=== PATIENT | female | born 1940 | race Caucasian/White ===

== ENCOUNTER 2019-03-08 09:12 | Inpatient (IN) | payer MEDICARE ==
--- NOTE | 2019-03-08 07:56 | P.GSHP ---
History of Present Illness H&P Date: 03/08/19 CHIEF COMPLAINT: Colon screen HISTORY OF PRESENT ILLNESS: The patient is a 78-year-old female who presents for colon screen. Lower endoscopy was offered for further evaluation and management. PAST MEDICAL HISTORY: Please see list. PAST SURGICAL HISTORY: Please see list. MEDICATIONS: Please see list. ALLERGIES: Please see list. SOCIAL HISTORY: No illicit drug use FAMILY HISTORY: No reports of Crohn disease or ulcerative colitis. REVIEW OF ORGAN SYSTEMS: CONSTITUTIONAL: No reports of fevers or chills. PHYSICAL EXAM: VITAL SIGNS: Stable GENERAL: Well-developed pleasant in no acute distress. HEENT: No scleral icterus. Extraocular movements grossly intact. Moist buccal mucosa. NECK: Supple without lymphadenopathy. CHEST: Unlabored respirations. Equal bilateral excursions. CARDIOVASCULAR: Regular rate and rhythm. Distal 2+ pulses. ABDOMEN: Soft, nontender, nondistended. MUSCULOSKELETAL: No clubbing, cyanosis, or edema. ASSESSMENT: 1. Colon screen. PLAN: 1. Recommend proceeding with a lower endoscopy Past Medical History Past Medical History: GERD/Reflux Additional Past Medical History / Comment(s): LOW BLOOD SUGAR History of Any Multi-Drug Resistant Organisms: None Reported Past Surgical History: Bowel Resection, Hysterectomy, Joint Replacement, Tubal Ligation Additional Past Surgical History / Comment(s): COLOSTOMY, REVERSAL OF COLOSTOMY, ventral hernia repair, open left inguinal hernia and incisional hernia repair 06/01/14, RT TKA, COLONOSCOPY Past Anesthesia/Blood Transfusion Reactions: Postoperative Nausea & Vomiting (PONV) Smoking Status: Never smoker - Past Family History Sister(s) Family Medical History: Cancer Medications and Allergies Home Medications Medication Instructions Recorded Confirmed Type Gabapentin [Neurontin] 300 mg PO BID 05/31/14 03/03/19 History Naproxen 500 mg PO BID 03/03/19 03/03/19 History Allergies Allergy/AdvReac Type Severity Reaction Status Date / Time Penicillins Allergy Severe Dyspnea, Verified 03/03/19 10:59 SWELLING OF TONGUE
[~2019-03-08 09:12] MED LIST: LIDOCAINE 1% 20 ML VIAL (10MG/ML) FOR IV START INTRADERMA PRN
[2019-03-08] MEDS ORDERED: LACTATED RINGERS 1,000 ML IV ONE (09:50)
[2019-03-08] MEDS ORDERED: PROPOFOL 10 MG/ML 20 ML VIAL IV ONE (09:54)
[2019-03-08] MEDS ORDERED: LIDOCAINE 1% INJ 10MG/ML (20 ML MDV) ONE (09:54)
--- NOTE | 2019-03-08 10:15 | P.PCN ---
Date of Procedure: 03/08/19 Description of Procedure: PREOPERATIVE DIAGNOSIS: History of malignant colon polyp, cecum Previous history of perforated diverticulitis with colostomy reversal POSTOPERATIVE DIAGNOSIS: History of malignant colon polyp, cecum Previous history of perforated diverticulitis with colostomy reversal Severe diverticulitis with near complete bowel obstruction, sigmoid colon Near complete large bowel obstruction OPERATION: Colonoscopy to sigmoid colon, flexible sigmoidoscopy SURGEON: Nini Alexandre MD. ANESTHESIA: MAC. INDICATIONS: The patient is a 78-year-old female who presents with with history of malignant colon polyp. Last colonoscopy over 5 years ago. She presents for surveillance. Benefits and risks were described and informed consent was obtained. DESCRIPTION OF PROCEDURE: The patient had undergone Gatorade, MiraLAX and Dulcolax prep. She had been brought into the operating room and laid in the left lateral decubitus position. After adequate intravenous sedation, the rectum was examined with 2% lidocaine jelly. No external hemorrhoids were encountered. The rectal tone was within normal limits. No lesions were palpated in the rectal vault. An Olympus colonoscope was advanced along the rectum to 30 cm from the anal verge where a less than 1 cm orifice of the sigmoid colon was identified with inflammation. Diverticulosis was identified. Findings are consistent with near complete large bowel obstruction. The procedure was terminated secondary to the severe obstruction. The patient had tolerated the procedure well. FINDINGS: Aronchick grade 1 (1 to 5) Near complete large bowel obstruction at 30 cm from the anal verge, sigmoid colon No arteriovenous malformations. No adenomatous polyps. No focal colitis. RECOMMENDATIONS: Patient admitted secondary to near complete large bowel obstruction.
[2019-03-08 12:34] LABS: African American GFR (CKD) >90 (>60 ml/min/1.73 sqM); Blood Urea Nitrogen 21 mg/dL (7-17)
[2019-03-08] MEDS: IOPAMIDOL-300 CONTRAST 30 ML VIAL (ORAL USE) PO PRN ×2 (13:05→13:10)
[2019-03-08] MEDS ORDERED: ACETAMINOPHEN TAB 500 MG TAB PO ONE (14:00)
[2019-03-08] MEDS ORDERED: IOPAMIDOL-300 CONTRAST 30 ML VIAL (ORAL USE) PO ONE (14:00)
[2019-03-08] MEDS ORDERED: ALVIMOPAN 12 MG CAPSULE PO ONE (14:00)
[2019-03-08] MEDS ORDERED: metroNIDAZOLE-NS PMX 500 MG in SALINE 1 100ML.BAG IVPB ONE (14:00)
[2019-03-08] MEDS ORDERED: Antibiotics per Pharmacy 1 EACH MISC MISCELLANE PRN (14:00)
[2019-03-08] MEDS ORDERED: GENTAMICIN 300 MG in SODIUM CHLORIDE 0.9% 100 ML IVPB ONE (14:00)
[2019-03-08] MEDS ORDERED: CLINDAMYCIN 900 MG in DEXTROSE 5% IN WATER 50 ML IVPB ONE ×2 (14:00)
[2019-03-08] MEDS ORDERED: POLYETHYLENE GLYCOL LYTES SOLN 4,000 ML SOLN.RECON PO ONE (14:00)
[2019-03-08 15:36] LABS: Glucose,Whole Blood 79 mg/dL (75-99)
--- NOTE | 2019-03-08 16:58 | CT ---
EXAMINATION TYPE: CT abdomen pelvis w con DATE OF EXAM: 03/08/2019 COMPARISON: None HISTORY:obstruction, failed colonoscopy, history of ruptured bowel CT DLP: 1113.2 mGycm Automated exposure control for dose reduction was used. TECHNIQUE: Helical acquisition of images from the lung bases through the pelvis have been completed. CONTRAST: Performed with Oral Contrast and with IV Contrast, patient injected with 100 mL of Isovue 300. FINDINGS: There is a small hiatal hernia. Metallic coils present along the anterior abdominal wall. T hat density irregularity in the left upper quadrant, axial image 22 shows a nonaggressive appearance and measures 3.4 cm may represent some focal fat necrosis with associated calcification. LUNG BASES: No significant abnormality is appreciated. AORTA: No significant abnormality is appreciated. LIVER/GB: Cystic focus within the right lobe of the liver measures 3.7 cm in greatest dimension is li farida statistically to represent cysts. Calcification present in the left lobe of the liver is focal. Gallbladder is normal. PANCREAS: No significant abnormality is seen. 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 KIDNEYS: Parapelvic cysts associated with the left kidney, no hydronephrosis bilaterally. REPRODUCTIVE ORGANS: Not seen BOWEL: Contrast material courses within the colon. Caliber change is noted in the left lower quadran t which may be due to lack of distention axial image #53. There is a mucosal abnormality within the s igmoid colon on axial image 63 which is irregular as it compared to the remainder of the sigmoid colo n which shows a smooth appearance, question whether this is the site of patient's previous injury. Di fficult to exclude an annular lesion in the mid transverse colon, axial image 45 Free AIR: No Free Air visible. ASCITES: None visible. PELVIC ADENOPATHY: None visualized. RETROPERITONEAL ADENOPATHY: No Retroperitoneal Adenopathy visible. URINARY BLADDER: No significant abnormality is seen. OSSEOUS STRUCTURES: Degenerative disc disease, facet arthropathy and scoliosis noted in the lumbar s pine.. IMPRESSION: MULTIPLE ABNORMALITIES ALONG THE DISTRIBUTION OF THE COLON IS DESCRIBED. Obstruction is not evident. Postop changes.
[2019-03-08 17:18] LABS: Basophils % (A) 0 %; Eosinophils # (A) 0.4 k/uL (0-0.7); Eosinophils % (A) 5 %; HCT 44.3 % (34.0-46.0); HGB 14.2 gm/dL (11.4-16.0); Lymphocytes # (A) 1.6 k/uL (1.0-4.8); Lymphocytes % (A) 22 %; MCH 29.3 pg (25.0-35.0); MCHC 32.1 g/dL (31.0-37.0); MCV 91.3 fL (80.0-100.0); Mean Platelet Volume 8.2; Monocytes # (A) 0.5 k/uL (0-1.0); Monocytes % (A) 7 %; Neutrophils # (A) 4.8 k/uL (1.3-7.7); Neutrophils % (A) 65 %; Platelet Count 224 k/uL (150-450); RBC 4.85 m/uL (3.80-5.40); RDW 14.2 % (11.5-15.5); WBC 7.4 k/uL (3.8-10.6)
[2019-03-08 17:24] LABS: ALT 33 U/L (9-52); AST 43 U/L (14-36); African American GFR (CKD) >90 (>60 ml/min/1.73 sqM); Albumin 4.2 g/dL (3.5-5.0); Alkaline Phosphatase 66 U/L (38-126); Anion Gap 6 mmol/L; Blood Urea Nitrogen 17 mg/dL (7-17); Calcium 9.4 mg/dL (8.4-10.2); Carbon Dioxide 26 mmol/L (22-30); Chloride 108 mmol/L (98-107); Glucose 82 mg/dL (74-99); Sodium 140 mmol/L (137-145); Total Bilirubin 0.7 mg/dL (0.2-1.3); Total Protein 6.8 g/dL (6.3-8.2)
[2019-03-08] MEDS: LACTATED RINGERS 1,000 ML IV SCH (17:41)
[2019-03-08 17:48] VITALS: BMI 32.9
--- NOTE | 2019-03-08 17:49 | P.PN ---
Subjective Progress Note Date: 03/08/19 Objective - Vital Signs Vital signs: Vital Signs Temp 98.0 F 03/08/19 09:35 Pulse 72 03/08/19 17:00 Resp 18 03/08/19 17:00 BP 142/82 03/08/19 17:00 Pulse Ox 95 03/08/19 17:00 Intake & Output 03/07/19 03/08/19 03/08/19 18:59 06:59 18:59 Intake Total 900 Balance 900 Intake: IV 900 - Labs CBC & Chem 7: 03/08/19 16:54 03/08/19 16:54 Labs: Abnormal Lab Results - Last 24 Hours (Table) 03/08/19 03/08/19 Range/Units 12:02 16:54 Chloride 108 H (98-107) mmol/L BUN 21 H (7-17) mg/dL AST 43 H (14-36) U/L
[2019-03-08 18:39] LABS: Glucose,Whole Blood 94 mg/dL (75-99)
[2019-03-08 20:08] LABS: Glucose,Whole Blood 90 mg/dL (75-99)
[2019-03-09 06:54] LABS: Glucose,Whole Blood 112 mg/dL (75-99)
[2019-03-09] MEDS ORDERED: ALVIMOPAN 12 MG CAPSULE PO ONE (08:10)
[2019-03-09] MEDS ORDERED: Antibiotics per Pharmacy 1 EACH MISC MISCELLANE PRN (08:10)
[2019-03-09] MEDS ORDERED: HEPARIN SODIUM,PORCINE 5,000 UNIT/ML 1 ML VIAL SQ ONE (08:10)
[2019-03-09] MEDS ORDERED: CLINDAMYCIN 900 MG in DEXTROSE 5% IN WATER 50 ML IVPB ONE ×2 (08:20)
[2019-03-09] MEDS ORDERED: GENTAMICIN 340 MG in SODIUM CHLORIDE 0.9% 100 ML IVPB ONE (08:20)
[2019-03-09 08:27] LABS: Basophils % (A) 1 %; Eosinophils # (A) 0.3 k/uL (0-0.7); Eosinophils % (A) 5 %; HCT 42.5 % (34.0-46.0); HGB 13.7 gm/dL (11.4-16.0); Lymphocytes # (A) 1.5 k/uL (1.0-4.8); Lymphocytes % (A) 24 %; MCH 29.4 pg (25.0-35.0); MCHC 32.3 g/dL (31.0-37.0); Mean Platelet Volume 8.3; Monocytes # (A) 0.4 k/uL (0-1.0); Monocytes % (A) 6 %; Neutrophils # (A) 4.1 k/uL (1.3-7.7); Neutrophils % (A) 63 %; Platelet Count 223 k/uL (150-450); RBC 4.67 m/uL (3.80-5.40); RDW 14.2 % (11.5-15.5); WBC 6.4 k/uL (3.8-10.6)
[2019-03-09 08:35] LABS: ALT 23 U/L (9-52); AST 40 U/L (14-36); African American GFR (CKD) >90 (>60 ml/min/1.73 sqM); Albumin 3.8 g/dL (3.5-5.0); Alkaline Phosphatase 51 U/L (38-126); Anion Gap 5 mmol/L; Blood Urea Nitrogen 17 mg/dL (7-17); Calcium 9.5 mg/dL (8.4-10.2); Carbon Dioxide 26 mmol/L (22-30); Chloride 110 mmol/L (98-107); Glucose 100 mg/dL (74-99); Potassium 4.1 mmol/L (3.5-5.1); Sodium 141 mmol/L (137-145); Total Bilirubin 0.7 mg/dL (0.2-1.3); Total Protein 6.4 g/dL (6.3-8.2)
--- NOTE | 2019-03-09 09:23 | P.CRDCN ---
History of Present Illness Consult date: 03/09/19 Requesting physician: Nini Alexandre Reason for Consult (text): preop cardiac clearance Chief complaint: bowel obstruction History of present illness: This is a pleasant 78-year-old female patient with no cardiac history who denies history of diabetes, hyperlipidemia, or hypertension. She is a nonsmoker and rarely drinks alcohol. She presented for routine colonoscopy that was done by Dr. Alexandre and was found to have near complete large bowel obstruction of the sigmoid colon. We have been asked to see the patient in consultation for preoperative cardiac clearance prior to undergoing open low anterior resection with possible ostomy. She does have a history of perforated diverticulitis with colostomy and reversal about 7 years ago she's also had hernia repair and left total knee replacement. According to the patient she underwent cardiac clearance workup in [place] prior to her knee surgery 2 years ago. According to the patient her testing came back normal. EKG shows sinus rhythm with a first-degree AV block without significant ST-T wave abnormalities. Vital signs of a relatively stable with some elevated blood pressure readings. Laboratory values show potassium 4.1, BUN 17, creatinine 0.65, normal CBC. Upon examination, patient is sitting up at the side of the bed visiting with family. She denies any history of chest discomfort, shortness of breath, palpitations, edema, orthopnea, PND, dizziness, lightheadedness or syncope. Past Medical History Past Medical History: GERD/Reflux Additional Past Medical History / Comment(s): LOW BLOOD SUGAR History of Any Multi-Drug Resistant Organisms: None Reported Past Surgical History: Bowel Resection, Hysterectomy, Joint Replacement, Tubal Ligation Additional Past Surgical History / Comment(s): COLOSTOMY, REVERSAL OF COLOSTOMY, ventral hernia repair, open left inguinal hernia and incisional hernia repair 06/01/14, RT TKA, COLONOSCOPY Past Anesthesia/Blood Transfusion Reactions: Postoperative Nausea & Vomiting (PONV) Past Psychological History: No Psychological Hx Reported Smoking Status: Never smoker Past Alcohol Use History: Occasional Past Drug Use History: None Reported - Past Family History Sister(s) Family Medical History: Cancer Medications and Allergies Home Medications Medication Instructions Recorded Confirmed Type Gabapentin [Neurontin] 300 mg PO BID 05/31/14 03/08/19 History Naproxen 500 mg PO BID 03/03/19 03/08/19 History Allergies Allergy/AdvReac Type Severity Reaction Status Date / Time Penicillins Allergy Severe Dyspnea, Verified 03/08/19 17:45 SWELLING OF TONGUE Physical Exam Vitals: Vital Signs Temp Pulse Pulse Resp BP BP Pulse Ox 03/09/19 07:24 98.1 F 74 20 139/89 95 03/09/19 07:00 98.1 F 74 20 139/89 95 03/09/19 04:21 18 03/09/19 01:50 97.5 F L 73 17 120/76 97 03/08/19 23:14 16 03/08/19 19:19 97.7 F 74 15 151/76 97 03/08/19 17:00 72 18 142/82 95 03/08/19 15:24 78 18 129/83 96 03/08/19 13:29 66 18 148/67 98 03/08/19 11:50 67 16 163/77 98 03/08/19 11:27 80 18 160/78 98 03/08/19 10:45 86 18 163/77 97 03/08/19 10:26 67 16 168/89 98 03/08/19 10:11 68 16 138/82 96 03/08/19 09:35 98.0 F 79 16 174/87 93 L Intake and Output 03/08/19 03/09/19 03/09/19 22:59 06:59 14:59 Intake Total 150 Balance 150 Intake: Intake, IV Titration 150 Amount Lactated Ringers 1,000 ml 150 @ 20 mls/hr IV .Q24H [facility] Rx#:[id number] Other: Voiding Method Toilet # Voids 1 # Bowel Movements 3 PHYSICAL EXAMINATION: HEENT: Head is atraumatic, normocephalic. Pupils equal, round. Neck is supple. There is no elevated jugular venous pressure. HEART EXAMINATION: Heart sounds regular, S1 and S2 with a soft systolic murmur. CHEST EXAMINATION: Lungs are clear to auscultation and precussion. No chest wall tenderness is noted on palpation or with deep breathing. ABDOMEN: Soft, nontender. Bowel sounds are heard. No organomegaly noted. EXTREMITIES: 2+ peripheral pulses with no evidence of peripheral edema and no calf tenderness noted. NEUROLOGIC patient is awake, alert and oriented x3. . Results 03/09/19 06:45 03/09/19 06:45 Cardiac Enzymes 03/08/19 03/09/19 Range/Units 16:54 06:45 AST 43 H 40 H (14-36) U/L CBC 03/08/19 03/09/19 Range/Units 16:54 06:45 WBC 7.4 6.4 (3.8-10.6) k/uL RBC 4.85 4.67 (3.80-5.40) m/uL Hgb 14.2 13.7 (11.4-16.0) gm/dL Hct 44.3 42.5 (34.0-46.0) % Plt Count 224 223 (150-450) k/uL Comprehensive Metabolic Panel 03/08/19 03/08/19 03/09/19 Range/Units 12:02 16:54 06:45 Sodium 140 141 (137-145) mmol/L Potassium 4.0 4.1 (3.5-5.1) mmol/L Chloride 108 H 110 H (98-107) mmol/L Carbon Dioxide 26 26 (22-30) mmol/L BUN 21 H 17 17 (7-17) mg/dL Creatinine 0.69 0.66 0.65 (0.52-1.04) mg/dL Glucose 82 100 H (74-99) mg/dL Calcium 9.4 9.5 (8.4-10.2) mg/dL AST 43 H 40 H (14-36) U/L ALT 33 23 (9-52) U/L Alkaline Phosphatase 66 51 (38-126) U/L Total Protein 6.8 6.4 (6.3-8.2) g/dL Albumin 4.2 3.8 (3.5-5.0) g/dL Current Medications Generic Name Dose Route Start Last Admin Trade Name Freq PRN Reason Stop Dose Admin Lactated Ringer's 1,000 mls @ 20 mls/hr 03/08/19 05:48 03/08/19 17:41 Lactated Ringers IV Not Given .Q24H ROESTES Levofloxacin 500 mg/ IV 100 mls @ 100 mls/hr 03/10/19 09:00 Solution IVPB Q24H O[facility] Metronidazole 500 mg/ IV 100 mls @ 100 mls/hr 03/09/19 16:00 Solution IVPB Q8HR ORESTES Gentamicin Sulfate 340 mg/ 108.5 mls @ 108.5 mls/hr 03/09/19 08:20 Sodium Chloride IVPB 03/09/19 09:19 ONCE ONE Lidocaine HCl 0.1 ml 03/08/19 05:48 03/08/19 09:45 .Xylocaine 1% Inj (10mg/Ml) For Iv Start INTRADERMA 0.1 ml PER PROTOCOL PRN Administration IV Start Intake and Output 03/08/19 03/09/19 03/09/19 22:59 06:59 14:59 Intake Total 150 Balance 150 Intake: Intake, IV Titration 150 Amount Lactated Ringers 1,000 ml 150 @ 20 mls/hr IV .Q24H [facility] Rx#:[id number] Other: Voiding Method Toilet # Voids 1 # Bowel Movements 3 03/09/19 06:45 03/09/19 06:45 EKG Interpretations (text) Sinus rhythm with first-degree AV block and occasional PACs Assessment and Plan Assessment: #1 preoperative cardiac clearance #2 near complete bowel obstruction Plan: From cardiology's perspective, we will review 2-D echo with Doppler. From our standpoint, patient may proceed with scheduled procedure. If needed we will follow the patient perioperatively and provide further recommendations accordingly. MAILER note has been reviewed, I agree with a documented findings and plan of care. Patient was seen and examined.
[2019-03-09 11:28] LABS: Glucose,Whole Blood 82 mg/dL (75-99)
--- NOTE | 2019-03-09 13:17 | ECHOF ---
Referral Reason:AV block MEASUREMENTS -------- HEIGHT: 162.6 cm WEIGHT: 86.2 kg BP: 120/76 RVIDd: 3.8 cm (< 3.3) IVSd: 1.5 cm (0.6 - 1.1) LVIDd: 3.3 cm (3.9 - 5.3) LVPWd: 1.2 cm (0.6 - 1.1) IVSs: 1.9 cm LVIDs: 2.4 cm LVPWs: 1.7 cm LAESV Index (A-L): 24.24 ml/m Ao Diam: 3.0 cm (2.0 - 3.7) AV Cusp: 2.2 cm (1.5 - 2.6) LA Diam: 3.5 cm (2.7 - 3.8) MV EXCURSION: 10.065 mm (> 18.000) MV EF SLOPE: 56 mm/s (70 - 150) EPSS: 0.6 cm MV E Woody: 0.48 m/s MV DecT: 217 ms MV A Woody: 0.92 m/s MV E/A Ratio: 0.53 AR PHT: 474 ms RAP: 5.00 mmHg RVSP: 11.79 mmHg FINDINGS -------- Sinus rhythm. This was a technically adequate study. The left ventricular size is normal. There is mild concentric left ventricular hypertrophy. Overa ll left ventricular systolic function is normal with, an EF between 55 - 60 %. The right ventricle is mild to moderately enlarged. Normal LA size by volume 22+/-6 ml/m2. The right atrial size is normal. Interatrial and interventricular septum intact. The aortic valve is trileaflet and appears structurally normal. There is mild aortic regurgitation. The mitral valve is normal. There is trace mitral regurgitation. Trace tricuspid regurgitation present. There is no evidence of pulmonary hypertension. The right ventricular systolic pressure, as measured by Doppler, is 11.79mmHg. There is no pulmonic regurgitation present. The aortic root size is normal. Normal inferior vena cava with normal inspiratory collapse consistent with estimated right atrial pre ssure of 5 mmHg. There is no pericardial effusion. CONCLUSIONS -------- 1. Sinus rhythm. 2. This was a technically adequate study. 3. The left ventricular size is normal. 4. There is mild concentric left ventricular hypertrophy. 5. Overall left ventricular systolic function is normal with, an EF between 55 - 60 %. 6. The right ventricle is mild to moderately enlarged. 7. Normal LA size by volume 22+/-6 ml/m2. 8. Interatrial and interventricular septum intact. 9. The aortic valve is trileaflet and appears structurally normal. 10. There is mild aortic regurgitation. 11. There is trace mitral regurgitation. 12. Trace tricuspid regurgitation present. 13. There is no evidence of pulmonary hypertension. 14. There is no pulmonic regurgitation present. 15. The aortic root size is normal. 16. Normal inferior vena cava with normal inspiratory collapse consistent with estimated right atrial pressure of 5 mmHg. 17. There is no pericardial effusion. SCUBA DIVING TEACHER: Adry Vila RDCS
[2019-03-09] MEDS ORDERED: IV FLUID CONTINUATION 1,000 ML IV ONE (14:50)
[2019-03-09] MEDS ORDERED: LACTATED RINGERS 1,000 ML IV ONE ×4 (15:45→21:15)
[2019-03-09] MEDS ORDERED: MIDAZOLAM (PF) 2 MG/2 ML VIAL IVP ONE (15:54)
[2019-03-09] MEDS ORDERED: ONDANSETRON 4 MG/2 ML VIAL IVP ONE (16:08)
--- NOTE | 2019-03-09 16:47 | P.HPADDEND ---
H&P Addendum H&P Addendum Date: 03/09/19 Patient presents with large bowel obstruction with tight stricture of the sigmoid colon. Recommend low anterior resection by open technique. Inpatient hospitalization more than 2 nights described
[2019-03-09] MEDS ORDERED: NALOXONE 0.4 MG/ML 1 ML VIAL IV PRN (17:08)
[2019-03-09] MEDS ORDERED: NEOSTIGMINE 1 MG/ML 10 ML VIAL ONE (17:18)
[2019-03-09] MEDS ORDERED: LIDOCAINE 1% INJ 10MG/ML (20 ML MDV) ONE (17:18)
[2019-03-09] MEDS ORDERED: VECURONIUM 10 MG VIAL IV ONE (17:18)
[2019-03-09] MEDS ORDERED: GLYCOPYRROLATE 0.2 MG/ML 2 ML VIAL ONE (17:18)
[2019-03-09] MEDS ORDERED: PROPOFOL 10 MG/ML 20 ML VIAL IV ONE (17:18)
[2019-03-09] MEDS ORDERED: SUCCINYLCHOLINE CHLORIDE 100 MG/5 ML SYR IV ONE (17:18)
[2019-03-09] MEDS ORDERED: fentaNYL (PF) 50 MCG/ML 2 ML AMP ONE (17:18)
[2019-03-09] MEDS ORDERED: MIDAZOLAM 2 MG/2 ML VIAL ONE (17:18)
[2019-03-09] MEDS ORDERED: PHENYLEPHRINE-0.9% NACL SYG 1 MG/10 ML SYRINGE ONE (17:18)
[2019-03-09] MEDS: ROPIVACAINE 250 MG, HYDROMORPHONE (PF) 5 MG in SODIUM CHLORIDE 0.9% 200 ML EPIDURAL PRN (22:08)
[2019-03-09] MEDS ORDERED: ONDANSETRON 4 MG/2 ML VIAL IVP PRN (22:17)
[2019-03-09 22:25] LABS: Glucose,Whole Blood 107 mg/dL (75-99)
--- NOTE | 2019-03-09 22:26 | P.OP ---
Date of Procedure: 03/09/19 Description of Procedure: SURGEON: ILEANA NGUYEN MD Preoperative Diagnosis: 1. Large bowel obstruction sigmoid colon stricture from diverticulitis 2. History of perforated diverticulitis with colostomy 3. Status post colostomy reversal 4. Obesity, BMI 32.6 5. Neuropathy 6. Gastroesophageal reflux disease Postoperative Diagnosis: 1. Large bowel obstruction 2. History of perforated diverticulitis with colostomy 3. Status post colostomy reversal 4. Obesity, BMI 32.6 5. Neuropathy 6. Gastroesophageal reflux disease 7. Severe intra-abdominal adhesions 8. Multiple internal hernias 9. Sigmoid colon stricture due to diverticulitis 10. Chronic small bowel obstruction Procedure(s) Performed: 1. Extensive lysis of adhesions over 2 hours 2. Lower anterior resection for sigmoid stricture 3. Intraoperative flexible sigmoidoscopy 4. Application of PREVENA wound vac Anesthesia: GETA, epidural Estimated Blood Loss (ml): 100 Pathology: other (Sigmoid colon with sigmoid stricture) Condition: stable Disposition: floor Operative Findings: 1. Severe intra-abdominal adhesions omentum to abdominal wall from previous ventral hernia repair with mesh throughout the entire abdomen 2. Severe malignant interloop adhesions right lower quadrant with at least 10 points of obstruction involving the small bowel, ileum and distal jejunum 3. Fecalization of small bowel distal jejunum consistent with chronic small bowel obstruction 4. Adhesive tethering point deep pelvis at sigmoid stricture due to severe diverticulitis, prior perforation site. 5. Anastomosis 28 mm EEA via colotomy proximal to the circular anastomosis closed with linear stapler 6. Anastomosis for EEA reinforced using interrupted 3-0 silk 7. Colotomy reinforced with 3-0 silk 8. Negative leak test 3 9. Application of PREVENA wound vac, universal along the midline INDICATIONS: The patient is a 78-year-old female presented for a colonoscopy for altered bowel habits and abdominal pain. Endoscopy findings were consistent with severe sigmoid stricture less than 6-mm with large bowel obstruction. On this finding, urgent surgical intervention was described. She underwent a slow enhanced colon recovery program. Benefits and risks of surgical intervention were described in detail including risks for colostomy. Informed consent was obtained. DESCRIPTION: The patient was brought to the operating room. After general induction, a Decker catheter was placed. The abdomen was prepped and draped in standard sterile fashion. Ioban draping was also placed. Prior to incision, a timeout protocol was confirmed with surgical team regarding patient's name including procedures to be performed. Preoperative medications were confirmed. Attention was brought to the abdomen whereby a well healed lower midline incision was encountered. Next, a #10 blade was used to enter along the epigastrium and extended down to the pubis. Carefully the abdomen was entered using electro- Bovie cautery. Severe intra-abdominal adhesions omentum to abdominal wall from previous ventral hernia repair with mesh throughout the entire abdomen was found. The greater omentum was adhered to the abdominal wall. Adhesions were addressed with a combination of blunt dissection with minimal electro-Bovie cautery. A universal retractor system was placed for complete exposure. Small bowel was investigated from the ligament of Treitz to the ileocecal valve. Severe malignant interloop adhesions right lower quadrant was found with at least 10 points of obstruction involving the small bowel, ileum and distal jejunum. Fecalization of small bowel distal jejunum consistent with chronic small bowel obstruction was found. Adhesive tethering point deep pelvis at sigmoid stricture was found due to severe diverticulitis. Interloop adhesions were similarly addressed using Metzenbaum scissors. All adhesions were addressed from the ligament of Treitz to the ileocecal valve. Extensive lysis adhesions were performed for over 2 hours. The small bowel was found adherent to the deep pelvis and sigmoid colon which the adhesive bands were divided. No enterotomies occurred. Next, the rest of the descending colon was investigated with remnant diverticular disease found. Next, sigmoid stricture was identified and divided proximally and distally using linear stapler 60-mm Covidien purple staple. Via the distal rectal stump, a 28-mm anvil was placed and sewn using pursestring of 2-0 V-LOC. Via the descending colon, a 28-mm stapler was placed 5-cm proximal to the staple line via a colotomy. A EEA stapler was inserted through the staple line and mated with the 28-mm anvil. The anvil and stapler were mated for 1 minute. The donuts were inspected and intact. The colotomy was closed transversely using 60-mm purple linear stapler. The colotomy was reinforced using 3-0 silk including EEA staple. A leak test was performed x 3 and negative for leaks after placing normal saline within the pelvis. The sigmoidoscope was entered to the staple line with photographic imaging of the EEA staple line obtained. A clean table closure set was used. Hemostasis was checked. The abdomen was inspected for hemostasis and closed using 2 sutures of double-stranded 0 PDS from inferiorly and superiorly. The skin was cleansed and the Ioban draping was removed. A customizable Prevena wound VAC system was placed at the midline. The apparatus was set to suction. At the end of the procedure, needle, sponge, and instrument count had been verified correct by the surgical services assistant. The patient was sent to the postanesthesia care unit in stable condition. Intraoperative findings were described to the patient's family.
[2019-03-10] MEDS: metroNIDAZOLE-NS PMX 500 MG in SALINE 1 100ML.BAG IVPB SCH ×4 (00:14→16:09)
[2019-03-10] MEDS: SODIUM CHLORIDE 0.9% 1,000 ML IV SCH ×3 (00:21→20:18)
[2019-03-10] MEDS: NALBUPHINE 10 MG/ML (1 ML AMP) IV PRN ×2 (00:21→16:09)
[2019-03-10] MEDS: LACTATED RINGERS 1,000 ML IV SCH (00:23)
--- NOTE | 2019-03-10 06:24 | P.PN ---
Progress Note - Text Progress Note Date: 03/10/19 78-year-old female status post open low anterior resection postop day #1 epidural catheter placed day #2. She is a solution consisting of ropivacaine 0.1% and 20mcg/milliliter of Dilaudid. Current rate is 5 ML's an hour. VAS is a 0 out of 10 in severity. She's doing well overall, no pruritus, no motor deficit no sensory deficit. Decker catheter still in place. Plan is to continue with current epidural settings. Discontinue Decker at surgeon's request.
[2019-03-10] MEDS ORDERED: SODIUM CHLORIDE 0.9% 500 ML 500 ML IV ONE ×2 (06:45→16:07)
[2019-03-10 07:11] LABS: Glucose,Whole Blood 131 mg/dL (75-99)
[2019-03-10 08:00] LABS: Basophils % (A) 0 %; Eosinophils % (A) 0 %; HCT 41.3 % (34.0-46.0); HGB 13.1 gm/dL (11.4-16.0); Lymphocytes # (A) 0.6 k/uL (1.0-4.8); Lymphocytes % (A) 3 %; MCH 29.8 pg (25.0-35.0); MCHC 31.8 g/dL (31.0-37.0); MCV 93.6 fL (80.0-100.0); Mean Platelet Volume 8.3; Monocytes # (A) 0.7 k/uL (0-1.0); Monocytes % (A) 4 %; Neutrophils # (A) 15.2 k/uL (1.3-7.7); Neutrophils % (A) 92 %; Platelet Count 205 k/uL (150-450); RBC 4.42 m/uL (3.80-5.40); WBC 16.6 k/uL (3.8-10.6)
[2019-03-10] MEDS: HEPARIN SODIUM,PORCINE 5,000 UNIT/ML 1 ML VIAL SQ SCH ×2 (09:30→20:17)
[2019-03-10] MEDS: ALVIMOPAN 12 MG CAPSULE PO SCH ×2 (09:30→20:16)
[2019-03-10] MEDS ORDERED: SODIUM CHLORIDE 0.9% 2,000 ML IV ONE (09:32)
--- NOTE | 2019-03-10 09:36 | P.PN ---
Subjective Progress Note Date: 03/10/19 She had hypotension with epidural. She has dehydration for 2 day bowel preps and NPO status. Additional 2-L bolus ordered. She is somnolent. Clear liquid diet. Continue pryor with epiduaral. She did pass flatus after surgery. Will await more flatus and bowel movement. Continue entereg. Leukocytosis is stress response from surgery. Continue Flagyl and Levaquin for history of large bowel obstruction for diverticulitis. Objective - Vital Signs Vital signs: Vital Signs Temp 98 F 03/10/19 07:00 Pulse 101 H 03/10/19 07:00 Resp 14 03/10/19 07:00 BP 92/61 03/10/19 07:00 Pulse Ox 92 L 03/10/19 07:00 Intake & Output 03/09/19 03/10/19 03/10/19 18:59 06:59 18:59 Intake Total 2264.5 2110 Output Total 555 Balance 2264.5 1555 Intake: IV 2264.5 1410 Intake, IV Titration 700 Amount Sodium Chloride 0.9% 1, 700 000 ml @ 100 mls/hr IV . Q10H [facility] Rx#:[id number] Output: Urine 455 Estimated Blood Loss 100 Other: Voiding Method Indwelling Catheter # Voids 2 - Labs CBC & Chem 7: 03/10/19 07:29 03/10/19 07:29 Labs: Abnormal Lab Results - Last 24 Hours (Table) 03/09/19 03/10/19 03/10/19 Range/Units 22:23 07:00 07:29 WBC 16.6 H (3.8-10.6) k/uL Neutrophils # 15.2 H (1.3-7.7) k/uL Lymphocytes # 0.6 L (1.0-4.8) k/uL Chloride (98-107) mmol/L BUN (7-17) mg/dL Glucose (74-99) mg/dL POC Glucose (mg/dL) 107 H 131 H (75-99) mg/dL Calcium (8.4-10.2) mg/dL 03/10/19 Range/Units 07:29 WBC (3.8-10.6) k/uL Neutrophils # (1.3-7.7) k/uL Lymphocytes # (1.0-4.8) k/uL Chloride 110 H (98-107) mmol/L BUN 20 H (7-17) mg/dL Glucose 132 H (74-99) mg/dL POC Glucose (mg/dL) (75-99) mg/dL Calcium 8.0 L (8.4-10.2) mg/dL
[2019-03-10 11:51] LABS: Glucose,Whole Blood 103 mg/dL (75-99)
--- NOTE | 2019-03-10 12:09 | CDI ---
Documentation Clarification Form Date: 03/10/2019 11:39:52 AM From: Kecia AdenGusmanCHRIS osorio, CCDS Admit Date: 03/08/2019 4:35:00 PM Patient Name: Hailey Berman Visit Number: [id number] Discharge Date: ATTENTION: The Clinical Documentation Specialists (CDI) and [facility] Coding Staff appreciate your assistance in clarifying documentation. Please respond to the clarification below the line at the bottom and electronically sign. The CDI & [facility] Coding staff will review the response and follow-up if needed. Please note: Queries are made part of the Legal Health Record. If you have any questions, please contact the author of this message via ITS. Dr. Nini Alexandre: Per the 03/10 progress note: "She had hypotension with epidural. She has dehydration for 2 day bowel preps and NPO status. Additional 2-L bolus ordered." Patients Admitting Diagnosis: Previous history of perforated diverticulitis with colostomy reversal, history of malignant colon poly, cecum, severe diverticulitis with near complete bowel obstruction, sigmoid colon. Postop Large bowel obstruction, history perforated diverticulitis & colostomy reversal, sigmoid stricture, multiple internal hernias. Post-Operative Diagnosis: Same with severe intra-abdominal adhesions, multiple internal hernias, sigmoid colon stricture due to diverticulitis. Procedure performed: Extensive lysis of adhesions over 2 hours, open low anterior resection for sigmoid stricture, intraoperative sigmoidoscopy. History/Risk Factors: as above. Previous hernia repair & left total knee replacement. Clinical Indicators: Preoperative BP: 138/82 - 168/89 Postoperative BP: 116/55 - 101/56 - 94/62 - 88/61 - 92/61 Treatment: IV fluid bolus x2, IV levaquin, Heparin sq In order to accurately reflect this patients severity of illness, please clarify if the patient's hypotension is the result of the surgical procedure? Yes No Other, please specify Unable to determine (Last Revision: December 2017) Hypotension related to moderate dehydration 03/10/2019 @ 15:38 [facility]
[2019-03-10] MEDS: LEVOFLOXACIN 500MG-D5W PMX 500 MG in DEXTROSE/WATER 1 100ML.BAG IVPB SCH (12:28)
[2019-03-10] MEDS: METOCLOPRAMIDE 5 MG/ML 2 ML VIAL IVP PRN (14:07)
[2019-03-10 17:10] LABS: Glucose,Whole Blood 102 mg/dL (75-99)
[2019-03-10 20:03] LABS: Glucose,Whole Blood 108 mg/dL (75-99)
--- NOTE | 2019-03-10 21:12 | P.PN ---
Progress Note - Text Progress Note Date: 03/10/19 Patient seen and evaluated this evening. She is more alert. She reports passing flatus. Urine is going from dark to clear. She reports thirst. She is tolerating liquid diet. Continue IV fluid hydration for dehydration. Continue epidural for pain control.
[2019-03-11] MEDS: metroNIDAZOLE-NS PMX 500 MG in SALINE 1 100ML.BAG IVPB SCH ×4 (01:26→23:15)
[2019-03-11] MEDS: NALBUPHINE 10 MG/ML (1 ML AMP) IV PRN ×3 (01:31→23:15)
[2019-03-11] MEDS: SODIUM CHLORIDE 0.9% 1,000 ML IV SCH ×2 (04:07→17:14)
[2019-03-11] MEDS: diphenhydrAMINE 50 MG/ML 1 ML VIAL IVP PRN (04:59)
[2019-03-11 07:24] LABS: Basophils % (A) 0 %; Eosinophils # (A) 0.2 k/uL (0-0.7); Eosinophils % (A) 2 %; HGB 11.9 gm/dL (11.4-16.0); Lymphocytes # (A) 0.9 k/uL (1.0-4.8); Lymphocytes % (A) 7 %; MCH 29.3 pg (25.0-35.0); MCHC 31.2 g/dL (31.0-37.0); MCV 93.9 fL (80.0-100.0); Mean Platelet Volume 8.3; Monocytes # (A) 0.7 k/uL (0-1.0); Monocytes % (A) 5 %; Neutrophils # (A) 10.3 k/uL (1.3-7.7); Neutrophils % (A) 85 %; Platelet Count 182 k/uL (150-450); RBC 4.05 m/uL (3.80-5.40); RDW 14.3 % (11.5-15.5); WBC 12.2 k/uL (3.8-10.6)
[2019-03-11 07:25] LABS: Glucose,Whole Blood 107 mg/dL (75-99)
[2019-03-11 07:38] LABS: African American GFR (CKD) >90 (>60 ml/min/1.73 sqM); Anion Gap 4 mmol/L; Blood Urea Nitrogen 24 mg/dL (7-17); Calcium 7.5 mg/dL (8.4-10.2); Carbon Dioxide 23 mmol/L (22-30); Chloride 111 mmol/L (98-107); Glucose 103 mg/dL (74-99); Potassium 4.2 mmol/L (3.5-5.1); Sodium 138 mmol/L (137-145)
[2019-03-11] MEDS: HEPARIN SODIUM,PORCINE 5,000 UNIT/ML 1 ML VIAL SQ SCH ×2 (08:58→20:49)
[2019-03-11] MEDS: ALVIMOPAN 12 MG CAPSULE PO SCH ×2 (08:58→20:49)
[2019-03-11] MEDS: ROPIVACAINE 250 MG, HYDROMORPHONE (PF) 5 MG in SODIUM CHLORIDE 0.9% 200 ML EPIDURAL PRN (09:11)
[2019-03-11] MEDS: LEVOFLOXACIN 500MG-D5W PMX 500 MG in DEXTROSE/WATER 1 100ML.BAG IVPB SCH (10:48)
[2019-03-11 11:36] LABS: Glucose,Whole Blood 115 mg/dL (75-99)
[2019-03-11] MEDS ORDERED: SODIUM CHLORIDE 0.9% 1,000 ML IV ONE (12:25)
--- NOTE | 2019-03-11 12:41 | P.PN ---
Subjective Progress Note Date: 03/11/19 HPI: She has responded to fluid boluses. No reports of moderate pain. She is yet to ambulate. No chest pain or shortness of breath ABDOMEN: Soft, nondistended. Abdominal binder present. Dressings intact : Clear yellow with pryor catheter LABS: WBC improving post-stress response from surgery ASSESSMENT: 1. Complications from diverticulitis with large bowel obstruction PLAN: 1. Continue epidural 2. Physical therapy evaluation and assessment 3. Patient does not wish to go to rehab 4. Home health care assessment 5. IV fluid bolus for marginal urine output of 30 mL/hr 6. Ambulate four times daily 7. Bedside education for incentive spirometer performed. Current attempt is 750 mL. 8. Anticipated disposition home for in 2 to 3 days Objective - Vital Signs Vital signs: Vital Signs Temp 97.1 F L 03/11/19 07:00 Pulse 89 03/11/19 07:00 Resp 15 03/11/19 07:00 BP 105/62 03/11/19 07:00 Pulse Ox 91 L 03/11/19 07:00 Intake & Output 03/10/19 03/11/19 03/11/19 18:59 06:59 18:59 Intake Total 420 0 Output Total 100 Balance 320 0 Intake: Intake, IV Titration 0 Amount Ropivacaine 250 mg 0 Hydromorphone (Pf) 5 mg In Sodium Chloride 0.9% 200 ml @ Per Protocol EPIDURAL .Q0M PRN Rx#: [id number] Oral 420 Output: Urine 100 Other: Voiding Method Indwelling Catheter Indwelling Catheter Indwelling Catheter - Labs CBC & Chem 7: 03/11/19 07:09 03/11/19 07:09 Labs: Abnormal Lab Results - Last 24 Hours (Table) 03/10/19 03/10/19 03/11/19 Range/Units 16:59 19:51 06:51 WBC (3.8-10.6) k/uL Neutrophils # (1.3-7.7) k/uL Lymphocytes # (1.0-4.8) k/uL Chloride (98-107) mmol/L BUN (7-17) mg/dL Glucose (74-99) mg/dL POC Glucose (mg/dL) 102 H 108 H 107 H (75-99) mg/dL Calcium (8.4-10.2) mg/dL 03/11/19 03/11/19 03/11/19 Range/Units 07:09 07:09 11:32 WBC 12.2 H (3.8-10.6) k/uL Neutrophils # 10.3 H (1.3-7.7) k/uL Lymphocytes # 0.9 L (1.0-4.8) k/uL Chloride 111 H (98-107) mmol/L BUN 24 H (7-17) mg/dL Glucose 103 H (74-99) mg/dL POC Glucose (mg/dL) 115 H (75-99) mg/dL Calcium 7.5 L (8.4-10.2) mg/dL
--- NOTE | 2019-03-11 14:06 | P.PN ---
Progress Note - Text 03/11 5852 78-year-old female status post exploratory lap by Dr. Alexandre. Patient has an epidural catheter for postoperative pain control with the solution running at 5 mL an hour, she has a VAS of 2, no motor or sensory deficit noted. Plan to continue epidural infusion
[2019-03-11 17:11] LABS: Glucose,Whole Blood 96 mg/dL (75-99)
[2019-03-11 20:44] LABS: Glucose,Whole Blood 109 mg/dL (75-99)
[2019-03-11] MEDS: PANTOPRAZOLE 40 MG/10 ML VIAL IVP SCH (21:34)
[2019-03-12] MEDS ORDERED: CALCIUM CARBONATE 500 MG CHEWABLE PO ONE (01:47)
[2019-03-12] MEDS: diphenhydrAMINE 50 MG/ML 1 ML VIAL IVP PRN (02:56)
[2019-03-12] MEDS: SODIUM CHLORIDE 0.9% 1,000 ML IV SCH ×3 (03:13→20:17)
[2019-03-12 06:57] LABS: Glucose,Whole Blood 104 mg/dL (75-99)
[2019-03-12 07:16] LABS: Basophils % (A) 0 %; Eosinophils # (A) 0.1 k/uL (0-0.7); Eosinophils % (A) 1 %; HCT 35.4 % (34.0-46.0); HGB 11.5 gm/dL (11.4-16.0); Lymphocytes # (A) 0.9 k/uL (1.0-4.8); Lymphocytes % (A) 9 %; MCH 29.8 pg (25.0-35.0); MCHC 32.6 g/dL (31.0-37.0); MCV 91.5 fL (80.0-100.0); Mean Platelet Volume 8.4; Monocytes # (A) 0.5 k/uL (0-1.0); Monocytes % (A) 5 %; Neutrophils # (A) 8.4 k/uL (1.3-7.7); Neutrophils % (A) 85 %; Platelet Count 182 k/uL (150-450); RBC 3.87 m/uL (3.80-5.40); RDW 14.1 % (11.5-15.5); WBC 9.9 k/uL (3.8-10.6)
[2019-03-12 07:30] LABS: African American GFR (CKD) >90 (>60 ml/min/1.73 sqM); Anion Gap 3 mmol/L; Blood Urea Nitrogen 14 mg/dL (7-17); Calcium 7.8 mg/dL (8.4-10.2); Carbon Dioxide 24 mmol/L (22-30); Chloride 110 mmol/L (98-107); Glucose 103 mg/dL (74-99); Potassium 3.4 mmol/L (3.5-5.1); Sodium 137 mmol/L (137-145)
[2019-03-12] MEDS: LEVOFLOXACIN 500MG-D5W PMX 500 MG in DEXTROSE/WATER 1 100ML.BAG IVPB SCH (08:22)
[2019-03-12] MEDS: PANTOPRAZOLE 40 MG/10 ML VIAL IVP SCH (08:25)
[2019-03-12] MEDS: HEPARIN SODIUM,PORCINE 5,000 UNIT/ML 1 ML VIAL SQ SCH ×2 (08:26→20:13)
[2019-03-12] MEDS: ALVIMOPAN 12 MG CAPSULE PO SCH ×2 (08:27→20:13)
[2019-03-12] MEDS: metroNIDAZOLE-NS PMX 500 MG in SALINE 1 100ML.BAG IVPB SCH ×3 (09:47→23:23)
[2019-03-12] MEDS ORDERED: HYDROcodone/APAP 5-325MG 1 EACH TAB PO PRN (10:16)
--- NOTE | 2019-03-12 10:16 | P.PN ---
Subjective Progress Note Date: 03/12/19 Principal diagnosis: Low anterior resection Patient doing better today. She is out of bed in the chair. She is on clears. She would like her diet advanced. She feels her bowels moving without flatus thus far. White blood cell count is normal. Objective - Vital Signs Vital signs: Vital Signs Temp 98.5 F 03/12/19 01:20 Pulse 87 03/12/19 01:20 Resp 18 03/12/19 01:20 BP 139/75 03/12/19 01:20 Pulse Ox 94 L 03/12/19 01:20 Intake & Output 03/11/19 03/12/19 03/12/19 18:59 06:59 18:59 Intake Total 3375 Output Total 500 1275 Balance 2875 -1275 Intake: IV 1000 Sodium Chloride 0.9% 1, 1000 000 ml @ 999 mls/hr IV . Q1H1M [facility] Rx#:[id number] Intake, IV Titration 800 Amount Ropivacaine 250 mg 0 Hydromorphone (Pf) 5 mg In Sodium Chloride 0.9% 200 ml @ Per Protocol EPIDURAL .Q0M PRN Rx#: [id number] Sodium Chloride 0.9% 1, 700 000 ml @ 100 mls/hr IV . Q10H [facility] Rx#:[id number] metroNIDAZOLE-NS PMX 500 100 mg In Saline 1 100ml.bag @ 100 mls/hr IVPB Q8HR [facility] Rx#:[id number] Oral 1575 Output: Urine 500 1275 Other: Voiding Method Indwelling Catheter - Exam Abdomen: Soft, nondistended, dressing clean and dry, mild tenderness - Labs CBC & Chem 7: 03/12/19 06:45 03/12/19 06:45 Labs: Abnormal Lab Results - Last 24 Hours (Table) 03/11/19 03/11/19 03/12/19 Range/Units 11:32 20:43 06:45 Neutrophils # 8.4 H (1.3-7.7) k/uL Lymphocytes # 0.9 L (1.0-4.8) k/uL Potassium (3.5-5.1) mmol/L Chloride (98-107) mmol/L Glucose (74-99) mg/dL POC Glucose (mg/dL) 115 H 109 H (75-99) mg/dL Calcium (8.4-10.2) mg/dL 03/12/19 03/12/19 Range/Units 06:45 06:46 Neutrophils # (1.3-7.7) k/uL Lymphocytes # (1.0-4.8) k/uL Potassium 3.4 L (3.5-5.1) mmol/L Chloride 110 H (98-107) mmol/L Glucose 103 H (74-99) mg/dL POC Glucose (mg/dL) 104 H (75-99) mg/dL Calcium 7.8 L (8.4-10.2) mg/dL Assessment and Plan (1) Diverticulitis Narrative/Plan: Patient doing well today. We'll remove epidural. Begin full liquid diet. Remove Decker catheter following that. Ambulate. Current Visit: Yes Status: Acute Code(s): K57.92 - DVTRCLI OF INTEST, PART UNSP, W/O PERF OR ABSCESS W/O BLEED SNOMED Code(s): 598347547
[2019-03-12 12:10] LABS: Glucose,Whole Blood 75 mg/dL (75-99)
[2019-03-12] MEDS: KETOROLAC 30 MG/ML 1 ML VIAL IVP SCH ×3 (12:37→23:22)
--- NOTE | 2019-03-12 13:10 | P.PN ---
Progress Note - Text 03/12 1029am 78-year-old female status post exploratory lap. She has an epidural catheter for postop pain control with the solution running at 5 mL an hour with a VAS of 1. Doing well, alert to DC the epidural was given to the nurse
[2019-03-12 16:59] LABS: Glucose,Whole Blood 88 mg/dL (75-99)
[2019-03-12 20:31] LABS: Glucose,Whole Blood 79 mg/dL (75-99)
[2019-03-13] MEDS: KETOROLAC 30 MG/ML 1 ML VIAL IVP SCH ×2 (05:06→14:06)
[2019-03-13 06:47] LABS: Glucose,Whole Blood 107 mg/dL (75-99)
[2019-03-13] MEDS ORDERED: ACETAMINOPHEN TAB 325 MG TAB PO PRN (07:08)
[2019-03-13 07:47] VITALS: BP 152/57; PULSE 66; RESP 16; TEMP 97.9
[2019-03-13] MEDS: METOCLOPRAMIDE 5 MG/ML 2 ML VIAL IVP PRN (07:52)
[2019-03-13] MEDS: PANTOPRAZOLE 40 MG/10 ML VIAL IVP SCH (07:52)
[2019-03-13] MEDS: SODIUM CHLORIDE 0.9% 1,000 ML IV SCH (07:53)
[2019-03-13] MEDS: HEPARIN SODIUM,PORCINE 5,000 UNIT/ML 1 ML VIAL SQ SCH (07:54)
[2019-03-13] MEDS: metroNIDAZOLE-NS PMX 500 MG in SALINE 1 100ML.BAG IVPB SCH (07:54)
--- NOTE | 2019-03-13 08:09 | P.DS ---
Providers Date of admission: 03/08/19 16:35 Expected date of discharge: 03/13/19 Attending physician: Nini Alexandre Consults: 03/08/19 17:23 Consult Physician Stat Consulting Provider: Alonso Leno Reason/Comments: AV block, caridac clearance pre-surgery tomorrow Do you want consulting provider notified?: Yes Primary care physician: Jagruti Arce Plan - Discharge Summary Discharge Rx Participant: Yes New Discharge Prescriptions: No Action Gabapentin [Neurontin] 300 mg PO BID Naproxen 500 mg PO BID Discharge Medication List Gabapentin [Neurontin] 300 mg PO BID 05/31/14 [History] Naproxen 500 mg PO BID 03/03/19 [History] Follow up Appointment(s)/Referral(s): [facility] [NON-STAFF] - As Needed
--- NOTE | 2019-03-13 08:09 | P.PN ---
Subjective Progress Note Date: 03/13/19 She is passing flatus and had bowel movement. She is tolerating diet. Going home today. Objective - Vital Signs Vital signs: Vital Signs Temp 97.9 F 03/13/19 07:00 Pulse 66 03/13/19 07:00 Resp 16 03/13/19 07:00 BP 152/57 03/13/19 07:00 Pulse Ox 93 L 03/13/19 07:00 Intake & Output 03/12/19 03/13/19 03/13/19 18:59 06:59 18:59 Intake Total 480 Output Total 1000 Balance -1000 480 Intake: Oral 480 Output: Urine 1000 Uretheral (Decker) 1000 Other: Voiding Method Indwelling Catheter # Voids 1 # Bowel Movements 1 - Labs CBC & Chem 7: 03/12/19 06:45 03/12/19 06:45 Labs: Abnormal Lab Results - Last 24 Hours (Table) 03/13/19 Range/Units 06:43 POC Glucose (mg/dL) 107 H (75-99) mg/dL
[2019-03-13] MEDS: LEVOFLOXACIN 500MG-D5W PMX 500 MG in DEXTROSE/WATER 1 100ML.BAG IVPB SCH (09:18)
[2019-03-13 11:37] LABS: Glucose,Whole Blood 87 mg/dL (75-99)
== END 2019-03-13 14:11 | disposition home health service (06) | DRG 330 ==
LOC: ORWHC2ENDO 09:12 → 4SSUR 16:35
PROVIDERS: ADMIT Surgery Plastic and Reconstructive Surgery; ATTEND Surgery Plastic and Reconstructive Surgery
PROC: 0DJD8ZZ Inspection of Lower Intestinal Tract, Via Natural or Artificial Opening Endoscopic (ICD-10-PCS; principal; 2019-03-08 10:00)
PROC: 0DBN0ZZ Excision of Sigmoid Colon, Open Approach (ICD-10-PCS; 2019-03-09)
PROC: 0DNB0ZZ Release Ileum, Open Approach (ICD-10-PCS; 2019-03-09)
PROC: 0DNN0ZZ Release Sigmoid Colon, Open Approach (ICD-10-PCS; 2019-03-09)
PROC: 0DNA0ZZ Release Jejunum, Open Approach (ICD-10-PCS; 2019-03-09)
PROC: 0DNU0ZZ Release Omentum, Open Approach (ICD-10-PCS; 2019-03-09)
PROC: 0DJD8ZZ Inspection of Lower Intestinal Tract, Via Natural or Artificial Opening Endoscopic (ICD-10-PCS; 2019-03-09)
DX: K56.52 Intestinal adhesions [bands] with complete obstruction (principal); K57.32 Diverticulitis of large intestine without perforation or abscess without bleeding; I95.9 Hypotension, unspecified; G62.9 Polyneuropathy, unspecified; E86.0 Dehydration; K66.0 Peritoneal adhesions (postprocedural) (postinfection); K46.9 Unspecified abdominal hernia without obstruction or gangrene; I44.0 Atrioventricular block, first degree; K21.9 Gastro-esophageal reflux disease without esophagitis; E66.9 Obesity, unspecified; Z68.32 Body mass index [BMI] 32.0-32.9, adult; Z79.1 Long term (current) use of non-steroidal anti-inflammatories (NSAID); Z79.899 Other long term (current) drug therapy; Z90.49 Acquired absence of other specified parts of digestive tract; Z96.653 Presence of artificial knee joint, bilateral; Z90.710 Acquired absence of both cervix and uterus; Z85.038 Personal history of other malignant neoplasm of large intestine; Z98.51 Tubal ligation status; Z98.890 Other specified postprocedural states; Z88.0 Allergy status to penicillin; Z80.9 Family history of malignant neoplasm, unspecified
CPT/HCPCS: 74177; 80048; 80053; 82565; 84520; 85025; 86850; 86900; 86901; 88307; 93306

== ENCOUNTER 2019-03-23 17:15 | Inpatient (IN) | payer MEDICARE ==
--- NOTE | 2019-03-23 19:42 | P.PN ---
Progress Note - Text Progress Note Date: 03/23/19 Patient advised to come locally to infusion center to obtain white blood cell count and labs including IV fluid hydration. Patient went to her local facility [facility] where labs were obtained. Notified by [facility] that patient has a white count over 20,000. CT of the abdomen and pelvis confirms intra-abdominal abscess. Patient also had hypokalemia. Findings of perforation on computed tomography scan communicated by ER provider. Direct admission accepted. Preplacement orders placed.
[2019-03-23] MEDS ORDERED: NALOXONE 0.4 MG/ML 1 ML VIAL IV PRN (20:33)
[2019-03-23] MEDS ORDERED: MORPHINE SULFATE 4 MG/ML SYRINGE IV PRN (20:33)
[2019-03-23] MEDS ORDERED: Magnesium Replacement Protocol 1 EACH MISC MISCELLANE PRN (20:36)
[2019-03-23] MEDS ORDERED: Potassium Replacement Protocol 1 EACH MISC MISCELLANE PRN (20:36)
[2019-03-23] MEDS ORDERED: Phosphorus Replacement Protoco 1 EACH MISC MISCELLANE PRN (20:36)
--- NOTE | 2019-03-23 20:54 | P.GSHP ---
History of Present Illness H&P Date: 03/23/19 CHIEF COMPLAINT: Pneumoperitoneum HISTORY OF PRESENT ILLNESS: The patient is a 78 year old female who was recently discharged from the hospital within the last 2 weeks for urgent surgical interve ntion for large bowel obstruction due to sigmoid diverticulitis. Postoperatively, she was passing gas and having flatus. She was doing well. She reports developing new abdominal pain including fever that started yesterdayof 102-degree. Her daughter who is also her caregiver also reported decrease in oral intake. Patient was advised to come to [facility] however she went to her local hospital to get IV fluid hydration and labs. Labs came back with critical potassium level of 2.8. Separately white blood count was over 23,000. Additional workup by her local hospital including CT scan performed demonstrated abdominal free air hence her transfer from [facility]. Her family is at bedside. She denies any moderate abdominal pain since her transfer. "I feel fine!" She is tolerating soup and has moderate appetite, confirmed by her daughter. In fact, she's been tolerating diet after IV fluid hydration. She is admitted for pneumoperitoneum. PAST MEDICAL HISTORY: See list. PAST SURGICAL HISTORY: See list. MEDICATIONS: See list. ALLERGIES: See list. SOCIAL HISTORY: No illicit drug use FAMILY HISTORY: No reports of Crohn's disease or inflammatory bowel disease REVIEW OF ORGAN SYSTEMS: CONSTITUTIONAL: Recent fevers in the last 24 hrs. EYES: Denies any trouble with vision. No glasses. HEENT: No difficulties with hearing. No nosebleeds. No difficulty swallowing. RESPIRATORY: Denies pneumonia. Denies any troubles with breathing or dyspnea on exertion. CARDIOVASCULAR: Denies any chest pain, palpitations, or recent heart attacks. GASTROINTESTINAL: Recent low anterior resection 2 weeks ago including lysis of adhesions for small and large bowel obstruction. GENITOURINARY: Denies any blood in urine or increased urinary frequency. NEUROLOGICAL: Denies any numbness or tingling along the distal extremities. No seizure disorders or headaches. MUSCULOSKELETAL: Has occasional back pain, stiffness and joint arthritis. SKIN: No current skin cancer. No rash. PSYCHIATRIC: Denies current depression or suicidal thoughts. ENDOCRINE: Denies current thyroid disorders. Denies any blood sugar glucose intolerance. HEME/LYMPHATIC: Denies any lumps and bumps around the neck. No recent deep venous thrombosis. ALLERGY/IMMUNOLOGY: No immunoglobulin therapy. No immune deficiencies. BREAST: Denies current breast lumps, pain or nipple discharge. PHYSICAL EXAM: VITALS: Reviewed CONSTITUTIONAL: Well developed and in no acute distress. EYES: Conjuctivae without sclera icterus. Pupils are equally round and reactive to light. Extraocular movements grossly intact. HEAD, EARS, NOSE, THROAT: Moist buccal mucosa. Head is atraumatic, n ormocephalic. Hears conversational speech. No nasal drainage. NECK: Supple. No JV distention. No thyroidomegaly. RESPIRATORY: Non-labored respirations and equal bilateral excursions. No gross wheezes. CARDIOVASCULAR: Regular rate and rhythm. Extremities without moderate edema. Palpable 2+ radial pulses. ABDOMEN: Granulating midline incision without cellulitis. No peritonitis. Minimal left lower quadrant tenderness with deep palpation. LYMPH: No neck lymphadenopathy. MUSCULOSKELETAL: Range of motion bilateral upper extremities within normal limits. Nail and fingers with good capillary refill. SKIN: Warm and well perfused with good skin turgor. NEUROLOGIC: Cranial nerves I through XII grossly intact. Sensation upper and extremities intact. No focal or lateralizing signs. PSYCH: Appropriate affect. Alert and oriented to person, place and time. Displays appropriate insight. CLINCAL LABS: Reviewed RADIOLOGY: Report reviewed with free air on CT scan IMAGING: Independently reviewed with large 10-cm air pocket at left lower quadrant. ASSESSMENT: 1. Pneumoperitoneum 2. Perforated viscus 3. History of diverticulitis 4. History of large bowel obstruction 5. History of peritoneal adhesions 6. Sepsis, prior to admission PLAN: 1. Inpatient admission over 2 nights advised. 2. Will start IV antibiotics. 3. NPO status. 4. Consultation to infectious disease medicine for antibiotic management for pre-existing sepsis 5. Hospitalist consultation for medical management. 6. Will obtain PICC line for both TPN and IV antibiotics prolonged. 7. Surgical intervention described; however, patient does not want any further surgery as she feels well. Past Medical History Past Medical History: GERD/Reflux Additional Past Medical History / Comment(s): LOW BLOOD SUGAR History of Any Multi-Drug Resistant Organisms: None Reported Past Surgical History: Bowel Resection, Hysterectomy, Joint Replacement, Tubal Ligation Additional Past Surgical History / Comment(s): COLOSTOMY, REVERSAL OF COLOSTOMY, ventral hernia repair, open left inguinal hernia and incisional hernia repair 06/01/14, RT TKA, COLONOSCOPY Past Anesthesia/Blood Transfusion Reactions: Postoperative Nausea & Vomiting (PONV) Past Psychological History: No Psychological Hx Reported Smoking Status: Never smoker Past Alcohol Use History: Occasional Past Drug Use History: None Reported - Past Family History Sister(s) Family Medical History: Cancer Brother(s) Family Medical History: Cancer Additional Family Medical History / Comment(s): Brain Medications and Allergies Home Medications Medication Instructions Recorded Confirmed Type Gabapentin [Neurontin] 300 mg PO BID 05/31/14 03/23/19 History Naproxen 500 mg PO BID 03/03/19 03/23/19 History Acetaminophen [Tylenol] 325 mg PO Q4H #30 tab 03/13/19 03/23/19 Rx Ibuprofen [Motrin] 600 mg PO Q8HR PRN #30 tab 03/13/19 03/23/19 Rx Calcium Carbonate [Calcium] 1,200 mg PO DAILY 03/23/19 03/23/19 History Multivitamins, Thera [Multivitamin 2 tab PO DAILY 03/23/19 03/23/19 History (formulary)] Nystatin 500,000 unit PO Q6HR 03/23/19 03/23/19 History Omeprazole 40 mg PO DAILY 03/23/19 03/23/19 History Allergies Allergy/AdvReac Type Severity Reaction Status Date / Time Penicillins Allergy Severe Dyspnea, Verified 03/23/19 21:36 SWELLING OF TONGUE Results - Labs 03/31/19 09:33 03/31/19 09:33 - Imaging CT scan - abdomen: report reviewed, image reviewed CT scan - pelvis: image reviewed Assessment and Plan (1) Perforated viscus Current Visit: Yes Status: Acute Code(s): R19.8 - OTH SYMPTOMS AND SIGNS INVOLVING THE DGSTV SYS AND ABDOMEN SNOMED Code(s): 233618209 (2) Pneumoperitoneum Current Visit: Yes Status: Acute Code(s): K66.8 - OTHER SPECIFIED DISORDERS OF PERITONEUM SNOMED Code(s): 86657553 (3) Sepsis Current Visit: Yes Status: Acute Code(s): A41.9 - SEPSIS, UNSPECIFIED ORG ANISM SNOMED Code(s): 13727658 (4) Diverticulitis large intestine Current Visit: No Status: Acute Code(s): K57.32 - DVTRCLI OF LG INT W/O PERFORATION OR ABSCESS W/O BLEEDING SNOMED Code(s): 5647145
[2019-03-23] MEDS ORDERED: LEVOFLOXACIN 500MG-D5W PMX 500 MG in DEXTROSE/WATER 1 100ML.BAG IVPB SCH (21:00)
[2019-03-23 21:25] LABS: ALT 26 U/L (9-52); AST 24 U/L (14-36); African American GFR (CKD) >90 (>60 ml/min/1.73 sqM); Albumin 2.5 g/dL (3.5-5.0); Alkaline Phosphatase 60 U/L (38-126); Amylase <30 U/L (30-110); Anion Gap 8 mmol/L; Blood Urea Nitrogen 17 mg/dL (7-17); Calcium 7.2 mg/dL (8.4-10.2); Carbon Dioxide 24 mmol/L (22-30); Chloride 108 mmol/L (98-107); Glucose 83 mg/dL (74-99); Lipase 91 U/L (23-300); Magnesium 1.9 mg/dL (1.6-2.3); Phosphorus 2.4 mg/dL (2.5-4.5); Potassium 3.5 mmol/L (3.5-5.1); Sodium 140 mmol/L (137-145); Total Bilirubin 0.6 mg/dL (0.2-1.3); Total Protein 4.9 g/dL (6.3-8.2)
[2019-03-23 21:27] LABS: INR 1.2 (<1.2)
[2019-03-23 21:31] LABS: Basophils % (A) 0 %; Eosinophils # (A) 0.4 k/uL (0-0.7); Eosinophils % (A) 3 %; HCT 34.9 % (34.0-46.0); HGB 11.5 gm/dL (11.4-16.0); Lymphocytes # (A) 1.3 k/uL (1.0-4.8); Lymphocytes % (A) 9 %; MCH 29.7 pg (25.0-35.0); MCHC 32.9 g/dL (31.0-37.0); MCV 90.3 fL (80.0-100.0); Mean Platelet Volume 8.3; Monocytes # (A) 0.7 k/uL (0-1.0); Monocytes % (A) 5 %; Neutrophils # (A) 12.3 k/uL (1.3-7.7); Neutrophils % (A) 83 %; Platelet Count 288 k/uL (150-450); RBC 3.86 m/uL (3.80-5.40); RDW 14.6 % (11.5-15.5); WBC 14.8 k/uL (3.8-10.6)
[2019-03-23] MEDS ORDERED: SODIUM PHOSPHATE 10 MMOL in SODIUM CHLORIDE 0.9% 250 ML IVPB ONE (22:45)
[2019-03-23] MEDS: SODIUM CHLORIDE 0.9% 1,000 ML IV SCH (22:57)
[2019-03-23] MEDS: POTASSIUM CHLORIDE 10 MEQ in WATER FOR INJECTION 1 100ML.BAG IVPB SCH ×2 (22:57→23:58)
[2019-03-23] MEDS ORDERED: POTASSIUM CHLORIDE 10 MEQ in WATER FOR INJECTION 1 100ML.BAG IVPB SCH (23:00)
[2019-03-24] MEDS: metroNIDAZOLE-NS PMX 500 MG in SALINE 1 100ML.BAG IVPB SCH ×2 (02:17→08:07)
[2019-03-24] MEDS: POTASSIUM CHLORIDE 10 MEQ in WATER FOR INJECTION 1 100ML.BAG IVPB SCH ×2 (03:23→05:39)
[2019-03-24] MEDS: BACLOFEN 10 MG TAB PO PRN ×2 (06:17→12:31)
[2019-03-24 06:31] LABS: Appearance,Urine Clear (Clear); Bilirubin,Urine Negative (Negative); Blood,Urine Negative (Negative); Color,Urine Light Yellow; Glucose,Urine (UA) Negative (Negative); Ketones,Urine 1+ (Negative); Leukocyte Esterase,Urine Small (Negative); Mucus,Urine Rare /hpf; Nitrite,Urine Negative (Negative); Protein,Urine Negative (Negative); RBC,Urine 1 /hpf (0-5); Specific Gravity,Urine 1.014 (1.001-1.035); Squamous Epithelial Cell,Urine <1 /hpf (0-4); Urobilinogen,Urine <2.0 mg/dL (<2.0)
[2019-03-24] MEDS: SODIUM CHLORIDE 0.9% 1,000 ML IV SCH (07:01)
[2019-03-24] MEDS: 0.9% NACL WITH KCL 40 MEQ/L 1,000 ML IV SCH ×3 (08:03→23:14)
[2019-03-24 08:19] LABS: Basophils % (A) 0 %; Eosinophils # (A) 0.4 k/uL (0-0.7); Eosinophils % (A) 3 %; HCT 33.3 % (34.0-46.0); HGB 10.9 gm/dL (11.4-16.0); Hypochromasia Slight; Lymphocytes # (A) 0.8 k/uL (1.0-4.8); Lymphocytes % (A) 7 %; MCH 29.8 pg (25.0-35.0); MCHC 32.9 g/dL (31.0-37.0); MCV 90.7 fL (80.0-100.0); Mean Platelet Volume 8.6; Monocytes # (A) 0.6 k/uL (0-1.0); Monocytes % (A) 5 %; Neutrophils # (A) 10.7 k/uL (1.3-7.7); Neutrophils % (A) 85 %; Platelet Count 255 k/uL (150-450); RBC 3.67 m/uL (3.80-5.40); RDW 14.8 % (11.5-15.5); WBC 12.7 k/uL (3.8-10.6)
[2019-03-24 08:32] LABS: African American GFR (CKD) >90 (>60 ml/min/1.73 sqM); Anion Gap 5 mmol/L; Blood Urea Nitrogen 12 mg/dL (7-17); Calcium 7.4 mg/dL (8.4-10.2); Carbon Dioxide 25 mmol/L (22-30); Chloride 109 mmol/L (98-107); Glucose 81 mg/dL (74-99); Phosphorus 2.4 mg/dL (2.5-4.5); Potassium 3.7 mmol/L (3.5-5.1); Sodium 139 mmol/L (137-145)
[2019-03-24] MEDS ORDERED: ENOXAPARIN 30 MG/0.3 ML SYRINGE SQ SCH (09:00)
--- NOTE | 2019-03-24 09:26 | P.CONS ---
History of Present Illness - Reason for Consult Consult date: 03/24/19 Antibiotic management, sepsis - History of Present Illness This is a 78-year-old female patient recently hospitalized March 08 through the and underwent an extensive bowel surgery secondary to a large bowel obstruction, history of perforated diverticulitis and colostomy reversal, sigmoid stricture. Patient was discharged home in stable condition and patient states that she was doing well prior to her discharge once she got home she felt that she did not have any energy and had generalized malaise and was not eating or drinking very much. Her daughter contacted Dr. Mcgowan and outpatient IV fluids were arranged at the infusion center at [facility]. She was then sent to emergency center for evaluation for weakness, lightheadedness diarrhea 2 times per day and was found to have a white count of 23.8, potassium 2.8, BUN was 24 and creatinine 0.8, magnesium 1.9. Chest x-ray showed extensive pneumoperitoneum. CAT scan of the abdomen and pelvis showed extensive pneumoperitoneum extending up to the retroperitoneum and into the mediastinum. Large thick-walled fluid collection throughout the left side of the abdomen, possibly arising from or at least directly adjacent to the thick walled distal duodenal wall, though, there are few small foci of air adjacent to the left lower quadrant colonic anastomosis do seem to connect to the collection. Rupture is likely at the superior margin of the collection is likely the source of most of the air. Patient was then transferred to [facility]. She is currently nothing by mouth except ice chips, PICC line has been ordered. She is currently on IV antibiotics the form of Levaquin and Flagyl. Patient does have ALLERGY to penicillin which causes swelling of the tongue. Patient denies any true abdominal pain. She is known to have tenderness in the left upper quadrant. She is passing gas and did have a bowel movement yesterday that was soft and formed. Patient has been using incentive spirometry while at home and continued here in the hospital. It appears she had a straight cath placed at [facility] but no Decker catheter in place. Review of Systems Constitutional: Reports anorexia, Reports fatigue, Reports fever, Reports lethargy, Reports malaise, Reports poor appetite, Reports weakness Ears, nose, mouth and throat: Denies dysphagia, Denies nasal congestion, Denies nasal discharge, Denies vertigo Cardiovascular: Denies decreased exercise tolerance, Denies dyspnea on exertion, Denies edema, Denies leg edema, Denies lightheadedness, Denies palpitations, Denies syncope Respiratory: Denies cough, Denies cough with sputum, Denies dyspnea, Denies excessive sputum, Denies hemoptysis Gastrointestinal: Reports abdominal pain, Reports diarrhea, Reports loss of appetite, Denies nausea, Denies vomiting Genitourinary: Denies dysuria, Denies urgency, Denies urinary frequency Musculoskeletal: Reports muscle weakness, Denies frequent falls, Denies gait dysfunction, Denies myalgias Integumentary: Reports wounds, Denies pruritus, Denies rash Neurological: Denies aphasia, Denies change in mentation, Denies confusion, Denies seizures, Denies weakness Psychiatric: Denies anxiety, Denies depression Endocrine: Denies fatigue, Denies weight change Past Medical History Past Medical History: GERD/Reflux Additional Past Medical History / Comment(s): LOW BLOOD SUGAR History of Any Multi-Drug Resistant Organisms: None Reported Past Surgical History: Bowel Resection, Hysterectomy, Joint Replacement, Tubal Ligation Additional Past Surgical History / Comment(s): COLOSTOMY, REVERSAL OF COLOSTOMY, ventral hernia repair, open left inguinal hernia and incisional hernia repair 06/01/14, RT TKA, COLONOSCOPY, Perf bowel 2010 Past Anesthesia/Blood Transfusion Reactions: Postoperative Nausea & Vomiting (PONV) Past Psychological History: No Psychological Hx Reported Smoking Status: Never smoker Past Alcohol Use History: Occasional Additional Past Alcohol Use History / Comment(s): Patient is a lifelong nonsmoker, she denies any marijuana or illicit drug use, no alcohol use. She lives at home and her son is living with her but he is gone during the day and the daughter Jackelyn is staying with her at nighttime and also neighbors check on her. There is a cat in the home. No recent travel. Past Drug Use History: None Reported - Past Family History Sister(s) Family Medical History: Cancer Additional Family Medical History / Comment(s): Cervical Brother(s) Family Medical History: Cancer Additional Family Medical History / Comment(s): Brain Medications and Allergies Home Medications Medication Instructions Recorded Confirmed Type Gabapentin [Neurontin] 300 mg PO BID 05/31/14 03/23/19 History Naproxen 500 mg PO BID 03/03/19 03/23/19 History Acetaminophen [Tylenol] 325 mg PO Q4H #30 tab 03/13/19 03/23/19 Rx Ibuprofen [Motrin] 600 mg PO Q8HR PRN #30 tab 03/13/19 03/23/19 Rx Calcium Carbonate [Calcium] 1,200 mg PO DAILY 03/23/19 03/23/19 History Multivitamins, Thera [Multivitamin 2 tab PO DAILY 03/23/19 03/23/19 History (formulary)] Nystatin 500,000 unit PO Q6HR 03/23/19 03/23/19 History Omeprazole 40 mg PO DAILY 03/23/19 03/23/19 History Allergies Allergy/AdvReac Type Severity Reaction Status Date / Time Penicillins Allergy Severe Dyspnea, Verified 03/23/19 21:36 SWELLING OF TONGUE Physical Exam Vitals: Vital Signs Temp Pulse Resp BP Pulse Ox 03/24/19 01:00 98.2 F 93 18 133/76 93 L 03/23/19 22:46 98.2 F 94 18 138/83 94 L Intake and Output 03/23/19 03/24/19 03/24/19 22:59 06:59 14:59 Intake Total 600 Balance 600 Intake: Intake, IV Titration 550 Amount Potassium Chloride 10 meq 100 In Water For Injection 1 100ml.bag @ 100 mls/hr IVPB Q1HR [facility] Rx#: [id number] Potassium Chloride 10 meq 100 In Water For Injection 1 100ml.bag @ 100 mls/hr IVPB Q1HR [facility] Rx#: [id number] Sodium Phosphate 10 mmol 250 In Sodium Chloride 0.9% 250 ml @ 125 mls/hr IVPB ONCE ONE Rx#:[id number] metroNIDAZOLE-NS PMX 500 100 mg In Saline 1 100ml.bag @ 100 mls/hr IVPB Q6HR [facility] Rx#:[id number] Oral 50 Other: # Voids 1 1 Weight 84 kg Gen: This is a obese 78-year-old female. She is resting in bed and appears to be comfortable. Patient did become tearful during evaluation. HEENT: Head is atraumatic, normocephalic. Pupils equal, round. Sclerae is anicteric. NECK: Supple. No JVD. No lymphadenopathy. No thyromegaly. LUNGS: Clear to auscultation. No wheezes or rhonchi. No intercostal retrac tions. HEART: Regular rate and rhythm. No murmur. ABDOMEN: Soft. Bowel sounds are present. No masses. Left upper quadrant tenderness. Midline incision distal areas slight redness at the wound site. No dehiscence. No significant drainage. No foul order. EXTREMITIES: No pedal edema. No calf tenderness. Dorsalis pedis +1 bilaterally. NEUROLOGICAL: Patient is awake, alert and oriented x3. Cranial nerves 2 through 12 are grossly intact. Results Results: Laboratory Results WBC 12.7 k/uL (3.8-10.6) H 03/24/19 07:23 RBC 3.67 m/uL (3.80-5.40) L 03/24/19 07:23 Hgb 10.9 gm/dL (11.4-16.0) L 03/24/19 07:23 Hct 33.3 % (34.0-46.0) L 03/24/19 07:23 MCV 90.7 fL (80.0-100.0) 03/24/19 07:23 MCH 29.8 pg (25.0-35.0) 03/24/19 07:23 MCHC 32.9 g/dL (31.0-37.0) 03/24/19 07:23 RDW 14.8 % (11.5-15.5) 03/24/19 07:23 Plt Count 255 k/uL (150-450) 03/24/19 07:23 Neutrophils % 85 % 03/24/19 07:23 Lymphocytes % 7 % 03/24/19 07:23 Monocytes % 5 % 03/24/19 07:23 Eosinophils % 3 % 03/24/19 07:23 Basophils % 0 % 03/24/19 07:23 Neutrophils # 10.7 k/uL (1.3-7.7) H 03/24/19 07:23 Lymphocytes # 0.8 k/uL (1.0-4.8) L 03/24/19 07:23 Monocytes # 0.6 k/uL (0-1.0) 03/24/19 07:23 Eosinophils # 0.4 k/uL (0-0.7) 03/24/19 07:23 Basophils # 0.0 k/uL (0-0.2) 03/24/19 07:23 Hypochromasia Slight 03/24/19 07:23 PT 12.0 sec (9.0-12.0) 03/23/19 21:07 INR 1.2 (<1.2) H 03/23/19 21:07 Sodium 139 mmol/L (137-145) 03/24/19 07:23 Potassium 3.7 mmol/L (3.5-5.1) 03/24/19 07:23 Chloride 109 mmol/L (98-107) H 03/24/19 07:23 Carbon Dioxide 25 mmol/L (22-30) 03/24/19 07:23 Anion Gap 5 mmol/L 03/24/19 07:23 BUN 12 mg/dL (7-17) 03/24/19 07:23 Creatinine 0.60 mg/dL (0.52-1.04) 03/24/19 07:23 Est GFR (CKD-EPI)AfAm >90 (>60 ml/min/1.73 sqM) 03/24/19 07:23 Est GFR (CKD-EPI)NonAf 88 (>60 ml/min/1.73 sqM) 03/24/19 07:23 Glucose 81 mg/dL (74-99) 03/24/19 07:23 Calcium 7.4 mg/dL (8.4-10.2) L 03/24/19 07:23 Phosphorus 2.4 mg/dL (2.5-4.5) L 03/24/19 07:23 Magnesium 2.0 mg/dL (1.6-2.3) 03/24/19 07:23 Total Bilirubin 0.6 mg/dL (0.2-1.3) 03/23/19 21:07 AST 24 U/L (14-36) 03/23/19 21:07 ALT 26 U/L (9-52) 03/23/19 21:07 Alkaline Phosphatase 60 U/L (38-126) 03/23/19 21:07 Total Protein 4.9 g/dL (6.3-8.2) L 03/23/19 21:07 Albumin 2.5 g/dL (3.5-5.0) L 03/23/19 21:07 Amylase <30 U/L (30-110) L 03/23/19 21:07 Lipase 91 U/L (23-300) 03/23/19 21:07 Urine Color Light Yellow 06/28/19 06:20 Urine Appearance Clear (Clear) 03/24/19 06:20 Urine pH 6.0 (5.0-8.0) 03/24/19 06:20 Ur Specific [place] 1.014 (1.001-1.035) 03/24/19 06:20 Urine Protein Negative (Negative) 03/24/19 06:20 Urine Glucose (UA) Negative (Negative) 03/24/19 06:20 Urine Ketones 1+ (Negative) H 03/24/19 06:20 Urine Blood Negative (Negative) 03/24/19 06:20 Urine Nitrite Negative (Negative) 03/24/19 06:20 Urine Bilirubin Negative (Negative) 03/24/19 06:20 Urine Urobilinogen <2.0 mg/dL (<2.0) 03/24/19 06:20 Ur Leukocyte Esterase Small (Negative) H 03/24/19 06:20 Urine RBC 1 /hpf (0-5) 03/24/19 06:20 Urine WBC 3 /hpf (0-5) 03/24/19 06:20 Ur Squamous Epith Cells <1 /hpf (0-4) 03/24/19 06:20 Urine Mucus Rare /hpf (None) H 03/24/19 06:20 I'll utilize for breakfast bar minutes CBC & Chem 7: 03/24/19 07:23 03/24/19 07:23 Labs: Abnormal Lab Results - Last 24 Hours (Table) 03/23/19 03/23/19 03/23/19 Range/Units 21:07 21:07 21:07 WBC 14.8 H (3.8-10.6) k/uL RBC (3.80-5.40) m/uL Hgb (11.4-16.0) gm/dL Hct (34.0-46.0) % Neutrophils # 12.3 H (1.3-7.7) k/uL Lymphocytes # (1.0-4.8) k/uL INR 1.2 H (<1.2) Chloride 108 H (98-107) mmol/L Calcium 7.2 L (8.4-10.2) mg/dL Phosphorus 2.4 L (2.5-4.5) mg/dL Total Protein 4.9 L (6.3-8.2) g/dL Albumin 2.5 L (3.5-5.0) g/dL Amylase <30 L (30-110) U/L Urine Ketones (Negative) Ur Leukocyte Esterase (Negative) Urine Mucus (None) /hpf 03/24/19 03/24/19 03/24/19 Range/Units 06:20 07:23 07:23 WBC 12.7 H (3.8-10.6) k/uL RBC 3.67 L (3.80-5.40) m/uL Hgb 10.9 L (11.4-16.0) gm/dL Hct 33.3 L (34.0-46.0) % Neutrophils # 10.7 H (1.3-7.7) k/uL Lymphocytes # 0.8 L (1.0-4.8) k/uL INR (<1.2) Chloride 109 H (98-107) mmol/L Calcium 7.4 L (8.4-10.2) mg/dL Phosphorus 2.4 L (2.5-4.5) mg/dL Total Protein (6.3-8.2) g/dL Albumin (3.5-5.0) g/dL Amylase (30-110) U/L Urine Ketones 1+ H (Negative) Ur Leukocyte Esterase Small H (Negative) Urine Mucus Rare H (None) /hpf Assessment and Plan Plan: Thank you this is a 78-year-old female who presented to the hospital with abdominal abscesses, abdominal sepsis with fevers, leukocytosis, dehydration. Patient is currently on Levaquin and Flagyl which will be changed to meropenem and Eraxis. A PICC line has been ordered to start TPN as well and continue IV fluid hydration. Continues supportive measures. Further recommendations as patient progresses. The above dictated assessment and findings were discussed with Dr. Law. The impression and plan of care have been directed as dictated. Priscilla Mancini nurse practitioner acting as scribe for Dr. Law.
[2019-03-24] MEDS ORDERED: ANIDULAFUNGIN 200 MG in SODIUM CHLORIDE 0.9% 200 ML IVPB ONE (09:54)
[2019-03-24] MEDS: LORazepam 2 MG/ML INJ IV PRN (10:26)
[2019-03-24] MEDS: MEROPENEM 1 GM in SODIUM CHLORIDE 0.9% 100 ML IVPB SCH ×3 (11:08→23:13)
[2019-03-24] MEDS ORDERED: Phosphorus Replacement Protoco 1 EACH MISC MISCELLANE PRN (12:52)
[2019-03-24] MEDS ORDERED: POTASSIUM PHOSPHATE 10 MMOL in SODIUM CHLORIDE 0.9% 250 ML IV ONE (12:52)
--- NOTE | 2019-03-24 12:55 | P.PN ---
<Elizabeth Benito Oskar - Last Filed: 03/24/19 12:59> Subjective Progress Note Date: 03/24/19 CHIEF COMPLAINT: leukocytosis HISTORY OF PRESENT ILLNESS: 78 year old female who recently underwent open low anterior resection with extensive lysis of adhesions secondary to large bowel obstruction secondary to sigmoid colon stricture due to diverticulitis by Dr. Alexandre on 03/09/19. Patient admitted yesterday secondary to leukocytosis, dehydration, intra-abdominal abscess and perforation. Patient seen and examined this morning at bedside. Patient denies abdominal pain. She denies nausea or vomiting. She reports decreased oral intake at home. She complains of muscle spasms in her right leg. Patient reports passing flatus. Loose bowel movement yesterday morning. Vital signs are stable. Patient is afebrile. PHYSICAL EXAM: VITAL SIGNS: Currently stable. GENERAL: Well-developed in no acute distress. HEENT: No sclera icterus. Extraocular movements grossly intact. Moist buccal mucosa. Head is atraumatic, normocephalic. Hears conversational speech. No nasal drainage. NECK: Supple without lymphadenopathy. CHEST: Non-labored respirations and equal bilateral excursions. CARDIOVASCULAR: Regular rate with regular rhythm. Palpable 2+ radial pulses. ABDOMEN: Soft. Nondistended. Mild tenderness. Midline incision noted with very mild erythema. No drainage noted. MUSCULOSKELETAL: No clubbing, cyanosis or edema. NEUROLOGIC: No focal or lateralizing signs. Cranial nerves II through XII grossly intact. PSYCH: Appropriate affect. Alert and oriented to person, place and time. SKIN: Well perfused. Good skin turgor. LABORATORY DATA: Laboratory data this morning reveals white count 12.7. Hemoglobin 10.9. Sodium 139. Potassium 3.7. BUN 12. Creatinine 0.60. IMAGING: CT abdomen and pelvis performed at [facility] reveals extensive pneumoperitoneum extending up the retroperitoneum and into the mediastinum. Large thick-walled fluid collection throughout the left side of abdomen, possi luis arising from or at least directly adjacent to the thick-walled distal duodenal wall. There are a few small foci of air adjacent to the left lower quadrant colonic anastomosis to seem to connect to the collection. Rupture is likely at the superior margin of the collection and is likely source of most of the air. ASSESSMENT: 1. Intraabdominal abscess with pneumoperitoneum 2. Sepsis, present on admission, secondary to above 3. 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 History of perforated diverticulitis with colostomy, since reversed 5. Dehydration secondary to poor oral intake 6. Hypokalemia 7. Hypophosphatemia PLAN: 1. NPO 2. Continue IV fluids 3. ID on consult. Antibiotics changed to Merrem and Eraxis 4. Patient to have PICC line placed today 5. Begin TPN today. Anesthesiology Crna on consult. 6. Replace electrolytes 7. Daily CBC, CMP, magnesium, phosphorus Nurse practitioner note has been reviewed by physician. Signing provider agrees with the documented findings, assessment, and plan of care. Objective - Vital Signs Vital signs: Vital Signs Temp 98.3 F 03/24/19 07:16 Pulse 89 03/24/19 07:16 Resp 15 03/24/19 07:16 BP 148/72 03/24/19 07:16 Pulse Ox 94 L 03/24/19 07:16 Intake & Output 03/23/19 03/24/19 03/24/19 18:59 06:59 18:59 Intake Total 600 Balance 600 Weight 84 kg Intake: Intake, IV Titration 550 Amount Potassium Chloride 10 meq 100 In Water For Injection 1 100ml.bag @ 100 mls/hr IVPB Q1HR [facility] Rx#: [id number] Potassium Chloride 10 meq 100 In Water For Injection 1 100ml.bag @ 100 mls/hr IVPB Q1HR [facility] Rx#: [id number] Sodium Phosphate 10 mmol 250 In Sodium Chloride 0.9% 250 ml @ 125 mls/hr IVPB ONCE ONE Rx#:[id number] metroNIDAZOLE-NS PMX 500 100 mg In Saline 1 100ml.bag @ 100 mls/hr IVPB Q6HR [facility] Rx#:[id number] Oral 50 Other: # Voids 1 - Labs CBC & Chem 7: 03/24/19 07:23 03/24/19 07:23 Labs: Abnormal Lab Results - Last 24 Hours (Table) 03/23/19 03/23/19 03/23/19 Range/Units 21:07 21:07 21:07 WBC 14.8 H (3.8-10.6) k/uL RBC (3.80-5.40) m/uL Hgb (11.4-16.0) gm/dL Hct (34.0-46.0) % Neutrophils # 12.3 H (1.3-7.7) k/uL Lymphocytes # (1.0-4.8) k/uL INR 1.2 H (<1.2) Chloride 108 H (98-107) mmol/L Calcium 7.2 L (8.4-10.2) mg/dL Phosphorus 2.4 L (2.5-4.5) mg/dL Total Protein 4.9 L (6.3-8.2) g/dL Albumin 2.5 L (3.5-5.0) g/dL Amylase <30 L (30-110) U/L Urine Ketones (Negative) Ur Leukocyte Esterase (Negative) Urine Mucus (None) /hpf 03/24/19 03/24/19 03/24/19 Range/Units 06:20 07:23 07:23 WBC 12.7 H (3.8-10.6) k/uL RBC 3.67 L (3.80-5.40) m/uL Hgb 10.9 L (11.4-16.0) gm/dL Hct 33.3 L (34.0-46.0) % Neutrophils # 10.7 H (1.3-7.7) k/uL Lymphocytes # 0.8 L (1.0-4.8) k/uL INR (<1.2) Chloride 109 H (98-107) mmol/L Calcium 7.4 L (8.4-10.2) mg/dL Phosphorus 2.4 L (2.5-4.5) mg/dL Total Protein (6.3-8.2) g/dL Albumin (3.5-5.0) g/dL Amylase (30-110) U/L Urine Ketones 1+ H (Negative) Ur Leukocyte Esterase Small H (Negative) Urine Mucus Rare H (None) /hpf <Nini Alexandre - Last Filed: 03/24/19 16:58> Subjective The patient clinically doing well. Agree with above. She is passing moderate flatus. She is having bowel movements. She is exclaims, "I feel the best I have been in weeks!" Family also at bedside also confirms moderate improvement of patient's clinical status. Patient denies any moderate abdominal pain. No peritonitis on exam. She has been afebrile. At this time, surgical intervention is on hold as moderate clinical improvement seen. Patient is also adamant against any surgical intervention as well. Overall in guarded condition. We'll likely repeat computed tomography scan as well. Objective - Vital Signs Vital signs: Vital Signs Temp 98.5 F 03/24/19 15:18 Pulse 95 03/24/19 15:18 Resp 15 03/24/19 15:18 BP 138/74 03/24/19 15:18 Pulse Ox 96 03/24/19 15:18 Intake & Output 03/23/19 03/24/19 03/24/19 18:59 06:59 18:59 Intake Total 600 50 Balance 600 50 Weight 84 kg 84 kg Intake: Intake, IV Titration 550 Amount Potassium Chloride 10 meq 100 In Water For Injection 1 100ml.bag @ 100 mls/hr IVPB Q1HR [facility] Rx#: [id number] Potassium Chloride 10 meq 100 In Water For Injection 1 100ml.bag @ 100 mls/hr IVPB Q1HR [facility] Rx#: [id number] Sodium Phosphate 10 mmol 250 In Sodium Chloride 0.9% 250 ml @ 125 mls/hr IVPB ONCE ONE Rx#:[id number] metroNIDAZOLE-NS PMX 500 100 mg In Saline 1 100ml.bag @ 100 mls/hr IVPB Q6HR [facility] Rx#:[id number] Oral 50 50 Other: # Voids 1 3 - Labs CBC & Chem 7: 03/24/19 07:23 03/24/19 07:23 Labs: Abnormal Lab Results - Last 24 Hours (Table) 03/23/19 03/23/19 03/23/19 Range/Units 21:07 21:07 21:07 WBC 14.8 H (3.8-10.6) k/uL RBC (3.80-5.40) m/uL Hgb (11.4-16.0) gm/dL Hct (34.0-46.0) % Neutrophils # 12.3 H (1.3-7.7) k/uL Lymphocytes # (1.0-4.8) k/uL INR 1.2 H (<1.2) Chloride 108 H (98-107) mmol/L Calcium 7.2 L (8.4-10.2) mg/dL Phosphorus 2.4 L (2.5-4.5) mg/dL Total Protein 4.9 L (6.3-8.2) g/dL Albumin 2.5 L (3.5-5.0) g/dL Amylase <30 L (30-110) U/L Urine Ketones (Negative) Ur Leukocyte Esterase (Negative) Urine Mucus (None) /hpf 03/24/19 03/24/19 03/24/19 Range/Units 06:20 07:23 07:23 WBC 12.7 H (3.8-10.6) k/uL RBC 3.67 L (3.80-5.40) m/uL Hgb 10.9 L (11.4-16.0) gm/dL Hct 33.3 L (34.0-46.0) % Neutrophils # 10.7 H (1.3-7.7) k/uL Lymphocytes # 0.8 L (1.0-4.8) k/uL INR (<1.2) Chloride 109 H (98-107) mmol/L Calcium 7.4 L (8.4-10.2) mg/dL Phosphorus 2.4 L (2.5-4.5) mg/dL Total Protein (6.3-8.2) g/dL Albumin (3.5-5.0) g/dL Amylase (30-110) U/L Urine Ketones 1+ H (Negative) Ur Leukocyte Esterase Small H (Negative) Urine Mucus Rare H (None) /hpf 03/24/19 Range/Units 15:14 WBC (3.8-10.6) k/uL RBC (3.80-5.40) m/uL Hgb (11.4-16.0) gm/dL Hct (34.0-46.0) % Neutrophils # (1.3-7.7) k/uL Lymphocytes # (1.0-4.8) k/uL INR (<1.2) Chloride (98-107) mmol/L Calcium (8.4-10.2) mg/dL Phosphorus (2.5-4.5) mg/dL Total Protein (6.3-8.2) g/dL Albumin 2.4 L (3.5-5.0) g/dL Amylase (30-110) U/L Urine Ketones (Negative) Ur Leukocyte Esterase (Negative) Urine Mucus (None) /hpf
[2019-03-24] MEDS ORDERED: LIDOCAINE 1% INJ 10MG/ML (20 ML MDV) SQ ONE (14:01)
[2019-03-24] MEDS ORDERED: LEVOFLOXACIN 500MG-D5W PMX 500 MG in DEXTROSE/WATER 1 100ML.BAG IVPB SCH (15:00)
[2019-03-24 16:13] LABS: Ionized Calcium 4.6 mg/dL (4.5-5.3)
[2019-03-24 16:33] LABS: Albumin 2.4 g/dL (3.5-5.0)
--- NOTE | 2019-03-24 16:45 | IR ---
EXAMINATION TYPE: IR cvc insert >=5 years DATE OF EXAM: 03/24/2019 COMPARISON: NONE CLINICAL HISTORY: Infection Needs long-term intravenous access for antibiotics. PROCEDURE: After informed consent, the skin overlying the left brachial vein was localized with ultrasound and n oted to be compressible and patent. An ultrasound image was obtained and submitted on the patient's chart. The overlying skin was prepped and draped and Lidocaine was used for local anesthesia. A ski n romi was made with a scalpel. Access was gained to the vein under ultrasound guidance with a 21 ga uge needle and a 0.018 inch wire was advanced. Access site was dilated with Peel-Away sheath and cat heter tailored to the appropriate length and advanced such that the distal tip is at the cavoatrial j unction. Spot image was obtained verifying placement. Catheter was fixed to the skin with suture an d a sterile dressing was placed following hemostasis. Catheter was aspirated and flushed with saline . Patient was discharged in stable condition without complication.Maximal barrier technique is utili zed. Ultrasound image is documented on the chart. Ultrasound used with sterile technique. Fluoro time and fluoroscopic images submitted to document procedure: 0.2 minutes fluoroscopy time, 1 intraoperative C-arm images IMPRESSION: STATUS POST ULTRASOUND AND FLUOROSCOPIC GUIDED PICC LINE PLACEMENT, READY FOR USE. THIS PROCEDURE WAS PERFORMED BY THE UNDERSIGNED.
[2019-03-24] MEDS ORDERED: MVI, ADULT NO.4 WITH VIT K 10 ML, TRACE (CONC-1ML/DOSE) 1 ML in AMINO ACID 5%-D15W+LYTE... IV ONE ×3 (20:00)
[2019-03-24] MEDS: FAT EMULSION 20% 250 ML in EMPTY BAG 1 BAG IV SCH (20:28)
--- NOTE | 2019-03-24 20:31 | P.CONS ---
History of Present Illness - Reason for Consult Consult date: 03/24/19 Medical management Requesting physician: Nini Alexandre - Chief Complaint Abdominal pain - History of Present Illness Consultation: This is a very pleasant 78-year-old patient of Dr. Pavithra Arce. Patient was here in the hospital on March 09 and was discharged on March 13. Patient had a prior perforated diverticular disease but the resulting colostomy that was rever sed. Patient is having abdominal symptoms and patient was taken to the or on March [address] Mcgowan and lysis of adhesions was carried out for large bowel obstruction. Since patient is being home patient having increasing abdominal discomfort. Not feeling well. Decreased appetite. Patient had some loose bowels here and there. No obvious nausea vomiting. Patient had a fever at home of 102.5, 3 days ago. As a part of the incision in the middle that is had some drainage. Patient does feel tired and rundown. Most history is given by the patient and the daughter at the bedside with him the patient lists. Patient admitted for the same. Eyelid today patient did get a PICC line. Patient also started antibiotics including IV meropenem and Flagyl. He does feel tired and rundown. Also having abdominal pain. Review of systems: GEN.: Tired, decreased appetite EYES: None HEENT: None NECK: None RESPIRATORY: None CARDIOVASCULAR: None GASTROINTESTINAL: As above GENITOURINARY: None MUSCULOSKELETAL: None LYMPHATICS: None HEMATOLOGICAL: None PSYCHIATRY: None NEUROLOGICAL: Peripheral numbness Past medical history: GERD, peripheral neuropathy, ruptured sigmoid diverticulitis with colostomy and reversal. Social history: Does not drink alcohol. Does not smoke. Has a daughter and granddaughter. Family history: Cervical cancer Physical examination: VITAL SIGNS: 98.2, 94, 18, 138/83, 94% room air GENERAL: Average built, lying in bed, uncomfortable. EYES: Pupils equal. Conjunctiva normal. HEENT: External appearance of nose and ears normal, oral cavity grossly normal. NECK: JVD not raised; masses not palpable. HEART: First and second heart sounds are normal; no edema. LUNGS: Respiratory rate normal; clear to auscultation. ABDOMEN: Soft, distended, mildly diffusely tender hyperactive bowel sounds, and the incision is healing well except is an area with some breakdown and slight drainage ; liver spleen not palpable, no masses palpable. PSYCH: Alert and oriented x3; mood and affect anxiousl. NEUROLOGICAL: Cranial nerves grossly intact; no facial asymmetry, power normal and hypersensitive distally. LYMPHATICS: No lymph nodes palpable in the axilla and neck Investigations, reviewed in the clinical context: White count 14.8 hemoglobin 11.5, repeat 10.9 platelets 288, potassium 3.5, creatinine 0.5 Assessment: -This is a patient to presented with fever abdominal pain and distention, 10 days following discharge after getting lysis of adhesions and surgery for sigmoid stricture. This was a site of previous sigmoid down to classes of perforation and colostomy reversal. Patient has a slight white count. Concern is his underlying abscess that may be developing. Patient has no obvious urinary or respiratory symptoms. -GERD -Idiopathic peripheral neuropathy -Obesity BMI 31.8 -Normocytic anemia, likely blood loss from recent surgery as expected Plan: We'll get plain abdominal series. If symptoms don't improve patient will need a repeat computed tomography scan of the abdomen. Patient's antibiotic includes IV meropenem and IV Flagyl. PICC line was ordered later in the day and typically lipids will be started. He was discussed in length with the patient daughter and granddaughter. Thank your Dr. Mcgowan Past Medical History Past Medical History: GERD/Reflux Additional Past Medical History / Comment(s): LOW BLOOD SUGAR History of Any Multi-Drug Resistant Organisms: None Reported Past Surgical History: Bowel Resection, Hysterectomy, Joint Replacement, Tubal Ligation Additional Past Surgical History / Comment(s): COLOSTOMY, REVERSAL OF COLOSTOMY, ventral hernia repair, open left inguinal hernia and incisional hernia repair 06/01/14, RT TKA, COLONOSCOPY, Perf bowel 2010 Past Anesthesia/Blood Transfusion Reactions: Postoperative Nausea & Vomiting (PONV) Past Psychological History: No Psychological Hx Reported Smoking Status: Never smoker Past Alcohol Use History: Occasional Additional Past Alcohol Use History / Comment(s): Patient is a lifelong nonsmoker, she denies any marijuana or illicit drug use, no alcohol use. She lives at home and her son is living with her but he is gone during the day and the daughter Jackelyn is staying with her at nighttime and also neighbors check on her. There is a cat in the home. No recent travel. Past Drug Use History: None Reported - Past Family History Sister(s) Family Medical History: Cancer Additional Family Medical History / Comment(s): Cervical Brother(s) Family Medical History: Cancer Additional Family Medical History / Comment(s): Brain Medications and Allergies Home Medications Medication Instructions Recorded Confirmed Type Gabapentin [Neurontin] 300 mg PO BID 05/31/14 03/23/19 History Naproxen 500 mg PO BID 03/03/19 03/23/19 History Acetaminophen [Tylenol] 325 mg PO Q4H #30 tab 03/13/19 03/23/19 Rx Ibuprofen [Motrin] 600 mg PO Q8HR PRN #30 tab 03/13/19 03/23/19 Rx Calcium Carbonate [Calcium] 1,200 mg PO DAILY 03/23/19 03/23/19 History Multivitamins, Thera [Multivitamin 2 tab PO DAILY 03/23/19 03/23/19 History (formulary)] Nystatin 500,000 unit PO Q6HR 03/23/19 03/23/19 History Omeprazole 40 mg PO DAILY 03/23/19 03/23/19 History Allergies Allergy/AdvReac Type Severity Reaction Status Date / Time Penicillins Allergy Severe Dyspnea, Verified 03/23/19 21:36 SWELLING OF TONGUE Physical Exam Vitals: Vital Signs Temp Pulse Resp BP Pulse Ox 03/24/19 07:16 98.3 F 89 15 148/72 94 L 03/24/19 01:00 98.2 F 93 18 133/76 93 L 03/23/19 22:46 98.2 F 94 18 138/83 94 L Intake and Output 03/23/19 03/24/19 03/24/19 22:59 06:59 14:59 Intake Total 600 Balance 600 Intake: Intake, IV Titration 550 Amount Potassium Chloride 10 meq 100 In Water For Injection 1 100ml.bag @ 100 mls/hr IVPB Q1HR [facility] Rx#: [id number] Potassium Chloride 10 meq 100 In Water For Injection 1 100ml.bag @ 100 mls/hr IVPB Q1HR [facility] Rx#: [id number] Sodium Phosphate 10 mmol 250 In Sodium Chloride 0.9% 250 ml @ 125 mls/hr IVPB ONCE ONE Rx#:[id number] metroNIDAZOLE-NS PMX 500 100 mg In Saline 1 100ml.bag @ 100 mls/hr IVPB Q6HR [facility] Rx#:[id number] Oral 50 Other: # Voids 1 1 Weight 84 kg Results CBC & Chem 7: 03/24/19 07:23 03/24/19 07:23 Labs: Abnormal Lab Results - Last 24 Hours (Table) 03/23/19 03/23/19 03/23/19 Range/Units 21:07 21:07 21:07 WBC 14.8 H (3.8-10.6) k/uL RBC (3.80-5.40) m/uL Hgb (11.4-16.0) gm/dL Hct (34.0-46.0) % Neutrophils # 12.3 H (1.3-7.7) k/uL Lymphocytes # (1.0-4.8) k/uL INR 1.2 H (<1.2) Chloride 108 H (98-107) mmol/L Calcium 7.2 L (8.4-10.2) mg/dL Phosphorus 2.4 L (2.5-4.5) mg/dL Total Protein 4.9 L (6.3-8.2) g/dL Albumin 2.5 L (3.5-5.0) g/dL Amylase <30 L (30-110) U/L Urine Ketones (Negative) Ur Leukocyte Esterase (Negative) Urine Mucus (None) /hpf 03/24/19 03/24/19 03/24/19 Range/Units 06:20 07:23 07:23 WBC 12.7 H (3.8-10.6) k/uL RBC 3.67 L (3.80-5.40) m/uL Hgb 10.9 L (11.4-16.0) gm/dL Hct 33.3 L (34.0-46.0) % Neutrophils # 10.7 H (1.3-7.7) k/uL Lymphocytes # 0.8 L (1.0-4.8) k/uL INR (<1.2) Chloride 109 H (98-107) mmol/L Calcium 7.4 L (8.4-10.2) mg/dL Phosphorus 2.4 L (2.5-4.5) mg/dL Total Protein (6.3-8.2) g/dL Albumin (3.5-5.0) g/dL Amylase (30-110) U/L Urine Ketones 1+ H (Negative) Ur Leukocyte Esterase Small H (Negative) Urine Mucus Rare H (None) /hpf
--- NOTE | 2019-03-24 21:14 | P.PN ---
Progress Note - Text Progress Note Date: 03/24/19 The patient clinically doing well. Agree with above. She is passing moderate flatus. She is having bowel movements. She is exclaims, "I feel the best I have been in weeks!" Family also at bedside also confirms moderate improvement of patient's clinical status. Patient denies any moderate abdominal pain. No peritonitis on exam. She has been afebrile. At this time, surgical intervention is on hold as moderate clinical improvement seen. Patient is also adamant against any surgical intervention as well. Overall in guarded condition. We'll likely repeat computed tomography scan as well.
--- NOTE | 2019-03-24 23:13 | P.CON ---
Consult Note - . Consult date: 03/24/19 Assessment/Plan:: This is a 78-year-old female patient recently hospitalized March 08 through the and underwent an extensive bowel surgery secondary to a large bowel obstruction, history of perforated diverticulitis and colostomy reversal, sigmoid stricture. Patient was discharged home in stable condition and patient states that she was doing well prior to her discharge once she got home she felt that she did not have any energy and had generalized malaise and was not eating or drinking very much. Her daughter contacted Dr. Mcgowan and outpatient IV fluids were arranged at the infusion center at [facility]. She was then se nt to emergency center for evaluation for weakness, lightheadedness diarrhea 2 times per day and was found to have a white count of 23.8, potassium 2.8, BUN was 24 and creatinine 0.8, magnesium 1.9. Chest x-ray showed extensive pneumoperitoneum. CAT scan of the abdomen and pelvis showed extensive pneumoperitoneum extending up to the retroperitoneum and into the mediastinum. Large thick-walled fluid collection throughout the left side of the abdomen, possibly arising from or at least directly adjacent to the thick walled distal duodenal wall, though, there are few small foci of air adjacent to the left lower quadrant colonic anastomosis do seem to connect to the collection. Rupture is likely at the superior margin of the collection is likely the source of most of the air. Patient was then transferred to [facility]. She is currently nothing by mouth except ice chips, PICC line has been ordered. She is currently on IV antibiotics the form of Levaquin and Flagyl. Patient does have ALLERGY to penicillin which causes swelling of the tongue. Patient denies any true abdominal pain. She is known to have tenderness in the left upper quadrant. She is passing gas and did have a bowel movement yesterday that was soft and formed. Patient has been using incentive spirometry while at home and continued here in the hospital. It appears she had a straight cath placed at [place], but no Decker catheter in place. Please see the consult note as dictated by nurse practitioner Mrs. Priscilla Mancini. This 78-year-old woman has evidence of the significant difficulty with the perforated diverticulum and the surgical intervention. Now has evidence of the significant changes in the pelvis with free air. Current plan is of carbapenem therapy which should be well tolerated with her penicillin ALLERGY as well as addition of Eraxis since there is high likelihood of a fungal component also to this extensive infection problem. Currently awaiting a PICC line to be placed a nd within need a course of antibiotic therapy. It appears that she is also on bowel rest and TPN this could be utilized. Her pain control seems to be adequate at this point in time. I agree with evaluation, assessment and plan as dictated by nurse practitioner Mrs. Priscilla Mancini.
[2019-03-25 03:58] LABS: Glucose,Whole Blood 104 mg/dL (75-99)
--- NOTE | 2019-03-25 07:32 | XR ---
EXAMINATION TYPE: XR abdomen 2V , 3 VIEWS DATE OF EXAM ORDERED: 03/25/2019 HISTORY: ileus. COMPARISON: Previous CT scan dated 03/08/2019. FINDINGS: There is free air under the right hemidiaphragm. There is evidence of hernia repair. There is no evidence of bowel obstruction. IMPRESSION: FREE INTRAPERITONEAL AIR. THE PATIENT IS POSTOP. THIS REPORT WAS CALLED TO LUISA ON THE FLOOR AT THE TIME OF REPORTING.
[2019-03-25] MEDS: MEROPENEM 1 GM in SODIUM CHLORIDE 0.9% 100 ML IVPB SCH ×3 (08:23→23:31)
[2019-03-25] MEDS: 0.9% NACL WITH KCL 40 MEQ/L 1,000 ML IV SCH ×2 (08:23→20:19)
[2019-03-25] MEDS: ENOXAPARIN 40 MG/0.4 ML SYRINGE SQ SCH (08:30)
[2019-03-25] MEDS: BACLOFEN 10 MG TAB PO PRN ×2 (08:30→16:08)
[2019-03-25 08:40] LABS: Basophils % (A) 0 %; Eosinophils # (A) 0.5 k/uL (0-0.7); Eosinophils % (A) 3 %; HCT 35.7 % (34.0-46.0); HGB 11.8 gm/dL (11.4-16.0); Hypochromasia Slight; Lymphocytes # (A) 1.4 k/uL (1.0-4.8); Lymphocytes % (A) 9 %; MCH 29.2 pg (25.0-35.0); MCV 88.7 fL (80.0-100.0); Mean Platelet Volume 8.6; Monocytes # (A) 0.7 k/uL (0-1.0); Monocytes % (A) 5 %; Neutrophils # (A) 12.7 k/uL (1.3-7.7); Neutrophils % (A) 82 %; Platelet Count 422 k/uL (150-450); RBC 4.02 m/uL (3.80-5.40); RDW 14.6 % (11.5-15.5); WBC 15.4 k/uL (3.8-10.6)
[2019-03-25 08:41] LABS: ALT 31 U/L (9-52); AST 20 U/L (14-36); African American GFR (CKD) >90 (>60 ml/min/1.73 sqM); Albumin 2.9 g/dL (3.5-5.0); Alkaline Phosphatase 71 U/L (38-126); Anion Gap 6 mmol/L; Blood Urea Nitrogen 10 mg/dL (7-17); Calcium 8.2 mg/dL (8.4-10.2); Carbon Dioxide 26 mmol/L (22-30); Chloride 107 mmol/L (98-107); Glucose 121 mg/dL (74-99); Magnesium 2.1 mg/dL (1.6-2.3); Phosphorus 2.4 mg/dL (2.5-4.5); Potassium 4.3 mmol/L (3.5-5.1); Sodium 139 mmol/L (137-145); Total Bilirubin 0.5 mg/dL (0.2-1.3); Total Protein 5.6 g/dL (6.3-8.2)
--- NOTE | 2019-03-25 10:08 | P.PN ---
Subjective Progress Note Date: 03/25/19 CHIEF COMPLAINT: Perforated viscus HISTORY OF PRESENT ILLNESS: The patient is a 78-year-old female readmitted after emergent laparotomy 2 weeks ago for acute large bowel obstruction from diverticulitis. She was doing well up until 2 days prior to admission where she had new fever and generalized malaise. Since admission, she feels well. She is ambulating with PT/OT in the room. She is passing moderate flatus. She reports large bowel movement today. She reports improvement of abdominal pain. She denies any abdominal pain with movement. She reports new right hip pain in the last 2 days but it is improving. No fevers or chills. "Doc, I feel better and I slept good." ROS: No reports of nausea and vomiting. She is bowel movements. No fevers or chills. No new chest pain. No productive sputum PHYSICAL EXAM: VITAL SIGNS: Reviewed CONSTITUTIONAL: Well developed and in no acute distress. EYES: Conjuctivae without sclera icterus. Extraocular movements grossly intact. HEAD, EARS, NOSE, THROAT: Moist buccal mucosa. Head is atraumatic, normocephalic. Hears conversational speech. No nasal drainage. NECK: Supple. No thyroidomegaly. RESPIRATORY: Non-labored respirations and equal bilateral excursions. CARDIOVASCULAR: Palpable 2+ radial pulses. Regular rate. Regular rhythm. ABDOMEN: No peritonitis. Soft. Nontender to moderate palpation. Mild distention. Obese. Abdominal binder present MUSCULOSKELETAL: No gross deformity of the lower extremities noted. No clubbing. No cyanosis. SKIN: Good skin turgor. Well perfused. NEUROLOGIC: Cranial nerves I through XII grossly intact. No focal or lateralizing signs. PSYCH: Appropriate affect. Alert and oriented to person, place and time. CLINCAL LABS: White blood cell count improved from over 23,000 outside institution to 15,000 STUDIES: Plain abdominal film of the abdomen reviewed with free air consistent with prior report an outside institution ASSESSMENT: 1. Perforated viscus PLAN: 1. All surgical options described. At this time, she does not want surgery as she feels well and in fact is doing better since admission. 2. Will obtain CT scan from outside institution 3. NPO 4. TPN 5. IV antibiotics Objective - Vital Signs Vital signs: Vital Signs Temp 97.7 F 03/25/19 07:00 Pulse 87 03/25/19 07:00 Resp 16 03/25/19 07:00 BP 147/82 03/25/19 07:00 Pulse Ox 96 03/25/19 07:00 Intake & Output 03/24/19 03/25/19 03/25/19 18:59 06:59 18:59 Intake Total 50 Balance 50 Weight 84 kg Intake: Oral 50 Other: Voiding Method Toilet # Voids 3 3 - Labs CBC & Chem 7: 03/25/19 08:17 03/25/19 08:17 Labs: Abnormal Lab Results - Last 24 Hours (Table) 03/24/19 03/25/19 03/25/19 Range/Units 15:14 03:46 08:17 WBC (3.8-10.6) k/uL Neutrophils # (1.3-7.7) k/uL Glucose 121 H (74-99) mg/dL POC Glucose (mg/dL) 104 H (75-99) mg/dL Calcium 8.2 L (8.4-10.2) mg/dL Phosphorus 2.4 L (2.5-4.5) mg/dL Total Protein 5.6 L (6.3-8.2) g/dL Albumin 2.4 L 2.9 L (3.5-5.0) g/dL 03/25/19 Range/Units 08:17 WBC 15.4 H (3.8-10.6) k/uL Neutrophils # 12.7 H (1.3-7.7) k/uL Glucose (74-99) mg/dL POC Glucose (mg/dL) (75-99) mg/dL Calcium (8.4-10.2) mg/dL Phosphorus (2.5-4.5) mg/dL Total Protein (6.3-8.2) g/dL Albumin (3.5-5.0) g/dL Microbiology - Last 24 Hours (Table) 03/23/19 21:07 Blood Culture - Preliminary Blood No Growth after 24 hours - Imaging and Cardiology Abdominal x-ray: report reviewed, image reviewed CT scan - abdomen: report reviewed, image reviewed CT scan - pelvis: image reviewed Assessment and Plan (1) Perforated viscus Current Visit: Yes Status: Acute Code(s): R19.8 - OTH SYMPTOMS AND SIGNS INVOLVING THE DGSTV SYS AND ABDOMEN SNOMED Code(s): 558489832 (2) Diverticulitis Current Visit: No Status: Acute Code(s): K57.92 - DVTRCLI OF INTEST, PART UNSP, W/O PERF OR ABSCESS W/O BLEED SNOMED Code(s): 929982383
[2019-03-25 10:10] LABS: Glucose,Whole Blood 100 mg/dL (75-99)
[2019-03-25] MEDS: ANIDULAFUNGIN 100 MG in SODIUM CHLORIDE 0.9% 100 ML IVPB SCH (10:50)
[2019-03-25 11:45] LABS: Glucose,Whole Blood 99 mg/dL (75-99)
[2019-03-25] MEDS ORDERED: SODIUM PHOSPHATE 10 MMOL in SODIUM CHLORIDE 0.9% 100 ML IVPB ONE (13:00)
[2019-03-25 18:06] LABS: Glucose,Whole Blood 107 mg/dL (75-99)
[2019-03-25] MEDS: 1: MVI, ADULT NO.4 WITH VIT K 10 ML, TRACE (CONC-1ML/DOSE) 1 ML in AMINO ACID 5%-D15W+LY IV SCH ×3 (21:19)
[2019-03-25 23:28] LABS: Glucose,Whole Blood 149 mg/dL (75-99)
[2019-03-26 05:16] LABS: Glucose,Whole Blood 118 mg/dL (75-99)
[2019-03-26] MEDS: MEROPENEM 1 GM in SODIUM CHLORIDE 0.9% 100 ML IVPB SCH ×3 (08:31→23:21)
[2019-03-26] MEDS: ANIDULAFUNGIN 100 MG in SODIUM CHLORIDE 0.9% 100 ML IVPB SCH (09:22)
[2019-03-26] MEDS: ENOXAPARIN 40 MG/0.4 ML SYRINGE SQ SCH (09:22)
[2019-03-26 10:26] LABS: Basophils % (A) 0 %; Eosinophils # (A) 0.4 k/uL (0-0.7); Eosinophils % (A) 4 %; HCT 37.2 % (34.0-46.0); HGB 11.2 gm/dL (11.4-16.0); Hypochromasia Marked; Lymphocytes # (A) 1.1 k/uL (1.0-4.8); Lymphocytes % (A) 10 %; MCH 29.4 pg (25.0-35.0); Mean Platelet Volume 8.6; Monocytes # (A) 0.8 k/uL (0-1.0); Monocytes % (A) 7 %; Neutrophils % (A) 78 %; Platelet Count 345 k/uL (150-450); RBC 3.79 m/uL (3.80-5.40); RDW 14.5 % (11.5-15.5); WBC 11.5 k/uL (3.8-10.6)
[2019-03-26 10:32] LABS: MCV 98.2 fL (80.0-100.0)
[2019-03-26 11:15] LABS: Glucose,Whole Blood 110 mg/dL (75-99)
--- NOTE | 2019-03-26 11:36 | P.PN ---
Subjective Progress Note Date: 03/26/19 CHIEF COMPLAINT: Perforated viscus HISTORY OF PRESENT ILLNESS: The patient is a 78-year-old female readmitted after emergent laparotomy 2+ weeks ago for acute large bowel obstruction from diverticulitis. She has no reports of abdominal pain. She has passed a large formed bowel movement. She is passing moderate flatus. "My right foot really hurts!" Prior, she had right hip pain and knee pain now she reports right foot pain. WBC has markedly improved. "My belly feels fine." No abdominal gas bloat. ROS: No reports of nausea and vomiting. No fevers or chills. No new chest pain. No productive sputum PHYSICAL EXAM: VITAL SIGNS: Reviewed CONSTITUTIONAL: Well developed and in no acute distress. EYES: Conjuctivae without sclera icterus. Extraocular movements grossly intact. HEAD, EARS, NOSE, THROAT: Moist buccal mucosa. Head is atraumatic, normocephalic. Hears conversational speech. No nasal drainage. NECK: Supple. No thyroidomegaly. RESPIRATORY: Non-labored respirations and equal bilateral excursions. CARDIOVASCULAR: Palpable 2+ radial pulses. Regular rate. Regular rhythm. ABDOMEN: No peritonitis. Soft. Nontender. Obese. MUSCULOSKELETAL: No gross deformity of the lower extremities noted. No clubbing. No cyanosis. SKIN: Good skin turgor. Well perfused. NEUROLOGIC: Cranial nerves I through XII grossly intact. No focal or lateralizing signs. PSYCH: Appropriate affect. Alert and oriented to person, place and time. CLINCAL LABS: White blood cell count improved from over 23,000 outside institution to 11,000 ASSESSMENT: 1. Perforated viscus PLAN: 1. Clinically she is doing very well despite previous radiological images. 2. Will get xrays of right knee and foot. 3. Consult to ortho performed for pain. 4. Continue with IV antibiotics and TPN. Objective - Vital Signs Vital signs: Vital Signs Temp 98.4 F 03/26/19 07:00 Pulse 99 03/26/19 08:40 Resp 18 03/26/19 08:40 BP 131/82 03/26/19 07:00 Pulse Ox 95 03/26/19 07:00 Intake & Output 03/25/19 03/26/19 03/26/19 18:59 06:59 18:59 Weight 85.5 kg Other: Voiding Method Toilet Toilet # Voids 1 - Labs CBC & Chem 7: 03/26/19 10:00 03/26/19 11:54 Labs: Abnormal Lab Results - Last 24 Hours (Table) 03/25/19 03/25/19 03/26/19 Range/Units 17:55 23:26 04:58 WBC (3.8-10.6) k/uL RBC (3.80-5.40) m/uL Hgb (11.4-16.0) gm/dL MCHC (31.0-37.0) g/dL Neutrophils # (1.3-7.7) k/uL POC Glucose (mg/dL) 107 H 149 H 118 H (75-99) mg/dL 03/26/19 03/26/19 Range/Units 10:00 11:03 WBC 11.5 H (3.8-10.6) k/uL RBC 3.79 L (3.80-5.40) m/uL Hgb 11.2 L (11.4-16.0) gm/dL MCHC 30.0 L (31.0-37.0) g/dL Neutrophils # 9.0 H (1.3-7.7) k/uL POC Glucose (mg/dL) 110 H (75-99) mg/dL Microbiology - Last 24 Hours (Table) 03/23/19 21:07 Blood Culture - Preliminary Blood No Growth after 48 hours Assessment and Plan (1) Perforated viscus Current Visit: Yes Status: Acute Code(s): R19.8 - OTH SYMPTOMS AND SIGNS INVOLVING THE DGSTV SYS AND ABDOMEN SNOMED Code(s): 869228419 (2) Diverticulitis Current Visit: No Status: Acute Code(s): K57.92 - DVTRCLI OF INTEST, PART UNSP, W/O PERF OR ABSCESS W/O BLEED SNOMED Code(s): 361993622 (3) Sepsis Current Visit: Yes Status: Acute Code(s): A41.9 - SEPSIS, UNSPECIFIED ORGANISM SNOMED Code(s): 44700387
[2019-03-26] MEDS: 1: MVI, ADULT NO.4 WITH VIT K 10 ML, TRACE (CONC-1ML/DOSE) 1 ML in AMINO ACID 5%-D15W+LY IV SCH ×3 (11:48)
[2019-03-26] MEDS: BACLOFEN 10 MG TAB PO PRN (11:48)
[2019-03-26 12:26] LABS: African American GFR (CKD) >90 (>60 ml/min/1.73 sqM); Albumin 3.2 g/dL (3.5-5.0); Anion Gap 10 mmol/L; Blood Urea Nitrogen 13 mg/dL (7-17); Calcium 8.8 mg/dL (8.4-10.2); Carbon Dioxide 22 mmol/L (22-30); Chloride 106 mmol/L (98-107); Glucose 92 mg/dL (74-99); Sodium 138 mmol/L (137-145); Total Bilirubin 0.8 mg/dL (0.2-1.3); Total Protein 6.2 g/dL (6.3-8.2)
[2019-03-26 12:29] LABS: AST 25 U/L (14-36); Magnesium 2.2 mg/dL (1.6-2.3)
[2019-03-26 12:30] LABS: ALT 22 U/L (9-52); Alkaline Phosphatase 65 U/L (38-126)
--- NOTE | 2019-03-26 14:06 | XR ---
EXAMINATION TYPE: XR knee complete RT , 3 VIEWS DATE OF EXAM ORDERED: 03/26/2019 HISTORY: knee pain. COMPARISON: None. FINDINGS: There is tricompartment joint space loss. There is remodeling changes in the medial compar tment and the patellofemoral joint. No definite joint effusion is seen. No fracture or dislocation is seen. IMPRESSION: MODERATE OSTEOARTHRITIS.
--- NOTE | 2019-03-26 14:08 | XR ---
EXAMINATION TYPE: XR foot complete RT , 3 VIEWS DATE OF EXAM ORDERED: 03/26/2019 HISTORY: foot pain. COMPARISON: None. FINDINGS: There are mild degenerative changes present in the right first MTP joint. There are mild d egenerative changes in the second and third tarsometatarsal joints. There is a small calcaneal spur. No fractures seen. IMPRESSION: 1. NO ACUTE OSSEOUS LESION. 2. DEGENERATIVE CHANGE.
--- NOTE | 2019-03-26 16:42 | P.CNOR ---
History of Present Illness - [facility] Consult date: 03/26/19 History of present illness: This patient is a 78-year-old female who is status-post extensive bowel surgery secondary to a large bowel obstruction, history of perforated diverticulitis and colostomy reversal, and sigmoid stricture. Patient was hospitalized March 08 through for this surgery. She was discharged in stable condition. She began to feel weakness and lightheadedness, as well as diarrhea. CT of the abdomen revealed a likely abscess. Patient was readmitted to [facility] on 03/23/19, she is currently receiving IV antibiotics and is currently NPO. She began to complain right foot today, although she states the pain began on or Wednesday. There is no injury the patient is aware of. She states she does have neuropathy and takes Neurontin at home, although the pain she is feeling is not similar to this neuropathic pain. She states the pain feels like it has improved since yesterday. The pain is exacerbated by weight-bearing and ambulating. She cannot localize the pain, she states the pain is "all over the foot". She denies knee pain or hip pain at the time of my exam. Patient denies any additional orthopedic complaints. Patient reports she does has diabetes, although upon chart review, this is not listed in her past medical history. Past Medical History Past Medical History: GERD/Reflux Additional Past Medical History / Comment(s): LOW BLOOD SUGAR History of Any Multi-Drug Resistant Organisms: None Reported Past Surgical History: Bowel Resection, Hysterectomy, Joint Replacement, Tubal Ligation Additional Past Surgical History / Comment(s): COLOSTOMY, REVERSAL OF COLOSTOMY, ventral hernia repair, open left inguinal hernia and incisional hernia repair 06/01/14, RT TKA, COLONOSCOPY, Perf bowel 2010 Past Anesthesia/Blood Transfusion Reactions: Postoperative Nausea & Vomiting (PONV) Past Psychological History: No Psychological Hx Reported Smoking Status: Never smoker Past Alcohol Use History: Occasional Additional Past Alcohol Use History / Comment(s): Patient is a lifelong nonsmoker, she denies any marijuana or illicit drug use, no alcohol use. She lives at home and her son is living with her but he is gone during the day and the daughter Jackelyn is staying with her at nighttime and also neighbors check on her. There is a cat in the home. No recent travel. Past Drug Use History: None Reported - Past Family History Sister(s) Family Medical History: Cancer Additional Family Medical History / Comment(s): Cervical Brother(s) Family Medical History: Cancer Additional Family Medical History / Comment(s): Brain Medications and Allergies Home Medications Medication Instructions Recorded Confirmed Type Gabapentin [Neurontin] 300 mg PO BID 05/31/14 03/23/19 History Naproxen 500 mg PO BID 03/03/19 03/23/19 History Acetaminophen [Tylenol] 325 mg PO Q4H #30 tab 03/13/19 03/23/19 Rx Ibuprofen [Motrin] 600 mg PO Q8HR PRN #30 tab 03/13/19 03/23/19 Rx Calcium Carbonate [Calcium] 1,200 mg PO DAILY 03/23/19 03/23/19 History Multivitamins, Thera [Multivitamin 2 tab PO DAILY 03/23/19 03/23/19 History (formulary)] Nystatin 500,000 unit PO Q6HR 03/23/19 03/23/19 History Omeprazole 40 mg PO DAILY 03/23/19 03/23/19 History Allergies Allergy/AdvReac Type Severity Reaction Status Date / Time Penicillins Allergy Severe Dyspnea, Verified 03/23/19 21:36 SWELLING OF TONGUE Physical Examination On examination, the patient is lying in bed in no apparent distress. She is alert and orientated x3. Her head appears to be atraumatic and normocephalic. Her breathing appears nonlabored. On inspection of the right foot, there is mild swelling and erythema of the dorsal forefoot. There are no wounds or lacer ations. The foot is diffusely tender to palpation. There is no pain on palpation of the medial or lateral malleoli, or the anterior ankle. There is no pain with PROM of the right ankle, knee, or hip. There is no pain with PROM of the toes. Patient has good ROM of the toes and ankle. Dorsalis pedis pulse +2. The right lower extremity is warm and well perfused. Neurovascular and circulatory status is intact of the right lower extremity. The calves are soft and nontender bilaterally. Results Right foot x-ray 03/26/19: No acute fractures, no acute bony abnormalities. D iffuse osteoarthritis. Right knee x-ray 03/26/19: No acute fractures. No acute bony abnormalities. Diffuse osteoarthritis. - Labs Labs: Abnormal Lab Results - Last 24 Hours (Table) 03/25/19 03/25/19 03/26/19 Range/Units 17:55 23:26 04:58 WBC (3.8-10.6) k/uL RBC (3.80-5.40) m/uL Hgb (11.4-16.0) gm/dL MCHC (31.0-37.0) g/dL Neutrophils # (1.3-7.7) k/uL Creatinine (0.52-1.04) mg/dL POC Glucose (mg/dL) 107 H 149 H 118 H (75-99) mg/dL Total Protein (6.3-8.2) g/dL Albumin (3.5-5.0) g/dL 03/26/19 03/26/19 03/26/19 Range/Units 10:00 11:03 11:54 WBC 11.5 H (3.8-10.6) k/uL RBC 3.79 L (3.80-5.40) m/uL Hgb 11.2 L (11.4-16.0) gm/dL MCHC 30.0 L (31.0-37.0) g/dL Neutrophils # 9.0 H (1.3-7.7) k/uL Creatinine 0.49 L (0.52-1.04) mg/dL POC Glucose (mg/dL) 110 H (75-99) mg/dL Total Protein 6.2 L (6.3-8.2) g/dL Albumin 3.2 L (3.5-5.0) g/dL Microbiology - Last 24 Hours (Table) 03/23/19 21:07 Blood Culture - Preliminary Blood No Growth after 48 hours H & H 03/23/19 03/24/19 03/25/19 Range/Units 21:07 07:23 08:17 Hgb 11.5 10.9 L 11.8 (11.4-16.0) gm/dL Hct 34.9 33.3 L 35.7 (34.0-46.0) % 03/26/19 Range/Units 10:00 Hgb 11.2 L (11.4-16.0) gm/dL Hct 37.2 (34.0-46.0) % Coagulation 03/23/19 Range/Units 21:07 INR 1.2 H (<1.2) Result Diagrams: 03/26/19 10:00 03/26/19 11:54 Assessment and Plan Assessment: Acute right foot pain Plan: - I discussed the x-ray findings with the patient and her family. I recommended the patient be placed into an equalizer boot on the right foot. - Recommended ice and elevation of the right foot for swelling and pain control. - We will monitor her response to treatment. We will continue to follow her while she is inpatient and make recommendations as needed. Patient discussed with Dr. Ceballos.
[2019-03-26 16:51] LABS: Glucose,Whole Blood 128 mg/dL (75-99)
--- NOTE | 2019-03-26 18:41 | P.PN ---
Progress Note - Text Progress Note Date: 03/25/19 - Chief Complaint Abdominal pain - History of Present Illness Consultation: This is a very pleasant 78-year-old patient of Dr. Pavithra Arce. Patient was here in the hospital on March 09 and was discharged on March 13. Patient had a prior perforated diverticular disease but the resulting colostomy that was reversed. Patient is having abdominal symptoms and patient was taken to the or on March [address] Mcgowan and lysis of adhesions was carried out for large bowel obstruction. Since patient is being home patient having increasing abdominal discomfort. Not feeling well. Decreased appetite. Patient had some loose bowels here and there. No obvious nausea vomiting. Patient had a fever at home of 102.5, 3 days ago. As a part of the incision in the middle that is had some drainage. Patient does feel tired and rundown. Also having abdominal pain. Today-laying in bed. Tired. Started on antibiotics and antifungal by ID. Abdominal x-ray had shown free air. Unable to locate patient's report from the hospital. Of the computed tomography scan of the abdomen. Patient does have abdominal discomfort. Has positive flatus. Review of systems: Was done for constitutional, cardiovascular, GI, pulmonary. relevant finding as above Current medications reviewed that included: Anidulafungin, IV meropenem Physical examination: VITAL SIGNS: 99.1, 95, 17, 140/84, 93% room air GENERAL: Awake, lying in bed, uncomfortable. EYES: Pupils equal. Conjunctiva normal. HEENT: External appearance of nose and ears normal, oral cavity grossly normal. NECK: JVD not raised; masses not palpable. HEART: First and second heart sounds are normal; no edema. LUNGS: Respiratory rate normal; clear to auscultation. ABDOMEN: Soft, distended, mildly diffusely tender hyperactive bowel sounds, and the incision is healing well e ; liver spleen not palpable, no masses palpable. PSYCH: Alert and oriented x3; mood and affect anxious. Investigations, reviewed in the clinical context: White count 15.4, potassium 4.3, creatinine 0.54, albumin 2.9 [id number], 99 Assessment: - infection suspected following lysis of adhesions and sigmoid stricture surgical site, large thick-walled fluid collection , throughout the left side of the abdomen, with a possible leak/fistula -GERD -Idiopathic peripheral neuropathy -Obesity BMI 31.8 -Normocytic anemia, likely blood loss from recent surgery as expected Plan: Patient is both on IV antifungal and IV antibiotic. Nothing by mouth. Getting PPN. Care was discussed with the patient. Questions answered. Follow along. Did discuss briefly with Dr. Mcgowan. We'll see how the patient is clinically and go from there. No surgical intervention at present time indicated per surgery
--- NOTE | 2019-03-26 18:44 | P.PN ---
Progress Note - Text Progress Note Date: 03/26/19 - Chief Complaint Abdominal pain - History of Present Illness Consultation: This is a very pleasant 78-year-old patient of Dr. Pavithra Arce. Patient was here in the hospital on March 09 and was discharged on March 13. Patient had a prior perforated diverticular disease but the resulting colostomy that was reversed. Patient is having abdominal symptoms and patient was taken to the or on March [address] Mcgowan and lysis of adhesions was carried out for large bowel obstruction. Since patient is being home patient having increasing abdominal discomfort. Not feeling well. Decreased appetite. Patient had some loose bowels here and there. No obvious nausea vomiting. Patient had a fever at home of 102.5, 3 days ago. As a part of the incision in the middle that is had some drainage. Patient does feel tired and rundown. Also having abdominal pain. Today-lying in bed. Bit uncomfortable. Getting PPN. Nothing by mouth. Did have a large watery bowel movement. No fever or chills. Very much in bed. Review of systems: Was done for constitutional, cardiovascular, GI, pulmonary. relevant finding as above Current medications reviewed that included: Anidulafungin, IV meropenem Physical examination: VITAL SIGNS: 98.5, 103, 16, 132/67, 95% room air GENERAL: Awake, lying in bed, uncomfortable. EYES: Pupils equal. Conjunctiva normal. HEENT: External appearance of nose and ears normal, oral cavity grossly normal. NECK: JVD not raised; masses not palpable. HEART: First and second heart sounds are normal; no edema. LUNGS: Respiratory rate normal; clear to auscultation. ABDOMEN: Soft, distended, mildly diffusely tender hyperactive bowel sounds, and the incision is healing well ; liver spleen not palpable, no masses palpable. PSYCH: Alert and oriented x3; mood and affect anxious. Investigations, reviewed in the clinical context: White count 11.5, hemoglobin 11.2, potassium 5, creatinine 0.49 [id number], 99 Assessment: - infection suspected following lysis of adhesions and sigmoid stricture surgical site, large thick-walled fluid collection , throughout the left side of the abdomen, with a possible leak/fistula -GERD -Idiopathic peripheral neuropathy -Obesity BMI 31.8 -Normocytic anemia, likely blood loss from recent surgery as expected -Hypoalbuminemia has an acute phase reactant Plan: Patient is both on IV antifungal and IV antibiotic. Nothing by mouth. Getting PPN. Care was discussed with the patient. Prognosis is guarded. to follow.
[2019-03-26] MEDS: ONDANSETRON 4 MG/2 ML VIAL IVP PRN (23:21)
[2019-03-27 00:55] LABS: Glucose,Whole Blood 111 mg/dL (75-99)
[2019-03-27] MEDS: 1: MVI, ADULT NO.4 WITH VIT K 10 ML, TRACE (CONC-1ML/DOSE) 1 ML in AMINO ACID 5%-D15W+LY IV SCH ×9 (01:38→14:25)
[2019-03-27] MEDS: ONDANSETRON 4 MG/2 ML VIAL IVP PRN ×2 (06:11→14:25)
[2019-03-27 06:22] LABS: Glucose,Whole Blood 121 mg/dL (75-99)
[2019-03-27] MEDS: LORazepam 2 MG/ML INJ IV PRN (08:23)
[2019-03-27] MEDS: ENOXAPARIN 40 MG/0.4 ML SYRINGE SQ SCH (08:23)
[2019-03-27] MEDS: MEROPENEM 1 GM in SODIUM CHLORIDE 0.9% 100 ML IVPB SCH ×3 (08:23→23:50)
[2019-03-27] MEDS ORDERED: SODIUM CHLORIDE 0.9% 500 ML 500 ML IV ONE (08:46)
[2019-03-27 09:31] LABS: Basophils % (A) 0 %; Eosinophils # (A) 0.3 k/uL (0-0.7); Eosinophils % (A) 2 %; HCT 36.8 % (34.0-46.0); Hypochromasia Slight; Lymphocytes # (A) 0.8 k/uL (1.0-4.8); Lymphocytes % (A) 6 %; MCH 29.4 pg (25.0-35.0); MCHC 32.7 g/dL (31.0-37.0); Mean Platelet Volume 8.5; Monocytes % (A) 7 %; Neutrophils # (A) 12.5 k/uL (1.3-7.7); Neutrophils % (A) 85 %; Platelet Count 330 k/uL (150-450); RBC 4.09 m/uL (3.80-5.40); RDW 14.7 % (11.5-15.5); WBC 14.8 k/uL (3.8-10.6)
[2019-03-27 09:39] LABS: ALT 23 U/L (9-52); AST 23 U/L (14-36); African American GFR (CKD) >90 (>60 ml/min/1.73 sqM); Alkaline Phosphatase 62 U/L (38-126); Anion Gap 8 mmol/L; Blood Urea Nitrogen 21 mg/dL (7-17); Calcium 8.5 mg/dL (8.4-10.2); Carbon Dioxide 24 mmol/L (22-30); Chloride 103 mmol/L (98-107); Glucose 132 mg/dL (74-99); Magnesium 2.2 mg/dL (1.6-2.3); Phosphorus 3.6 mg/dL (2.5-4.5); Potassium 4.6 mmol/L (3.5-5.1); Sodium 135 mmol/L (137-145); Total Bilirubin 0.5 mg/dL (0.2-1.3); Total Protein 5.8 g/dL (6.3-8.2)
[2019-03-27] MEDS: ANIDULAFUNGIN 100 MG in SODIUM CHLORIDE 0.9% 100 ML IVPB SCH (09:39)
--- NOTE | 2019-03-27 12:00 | P.PN ---
<Elizabeth Benito A - Last Filed: 03/27/19 11:55> Subjective Progress Note Date: 03/27/19 CHIEF COMPLAINT: leukocytosis HISTORY OF PRESENT ILLNESS: Patient examined at the bedside. Patient reports her abdomen felt like it was "rolling" overnight. She reports this morning her abdom en feels better and is currently denying abdominal pain. Patient had a small amount of bilious emesis this morning. Denies further episodes of emesis. Currently denies nausea. She is passing flatus and having BMs. WBC increased to 14.8 today. Afebrile. Patient has been evaluated by orthopedics and equalizer boot placed to right foot. PHYSICAL EXAM: VITAL SIGNS: Currently stable. GENERAL: Well-developed in no acute distress. HEENT: No sclera icterus. Extraocular movements grossly intact. Moist buccal mucosa. Head is atraumatic, normocephalic. Hears conversational speech. No nasal drainage. NECK: Supple without lymphadenopathy. CHEST: Non-labored respirations and equal bilateral excursions. CARDIOVASCULAR: Regular rate with regular rhythm. Palpable 2+ radial pulses. ABDOMEN: Soft. Nondistended. Nontender. Midline incision noted with very mild erythema. No drainage noted. MUSCULOSKELETAL: No clubbing, cyanosis or edema. NEUROLOGIC: No focal or lateralizing signs. Cranial nerves II through XII grossly intact. PSYCH: Appropriate affect. Alert and oriented to person, place and time. SKIN: Well perfused. Good skin turgor. ASSESSMENT: 1. Intraabdominal abscess with pneumoperitoneum 2. Sepsis, present on admission, secondary to above 3. 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 History of perforated diverticulitis with colostomy, since reversed 5. Dehydration secondary to poor oral intake 6. Hypokalemia 7. Hypophosphatemia PLAN: 1. NPO. Continue TPN 2. Continue IV fluids 3. ID on consult. Antibiotics per ID 4. 500cc bolus this morning secondary to nausea and emesis. Continue Zofran PRN 5. Continue to monitor WBC. If continues to increase tomorrow, will obtain CT a bdomen and pelvis Nurse practitioner note has been reviewed by physician. Signing provider agrees with the documented findings, assessment, and plan of care. Objective - Vital Signs Vital signs: Vital Signs Temp 98.1 F 03/27/19 07:00 Pulse 92 03/27/19 07:00 Resp 15 03/27/19 07:00 BP 128/78 03/27/19 07:00 Pulse Ox 94 L 03/27/19 07:00 Intake & Output 03/26/19 03/27/19 03/27/19 18:59 06:59 18:59 Intake Total 1011 1011 Balance 1011 1011 Weight 82 kg 82 kg Intake: Intake, IV Titration 1011 1011 Amount Mvi, Adult No.4 with Vit 1011 1011 K 10 ml Trace (Conc-1Ml/ Dose) 1 ml In Amino Acid 5%-D15w+Lytes*E* 1,000 ml @ 75 mls/hr IV .BY DURATION [facility] Rx#: [id number] Other: Voiding Method Toilet Bedside Commode # Voids 1 - Labs CBC & Chem 7: 03/27/19 09:06 03/27/19 09:06 Labs: Abnormal Lab Results - Last 24 Hours (Table) 03/26/19 03/26/19 03/27/19 Range/Units 11:54 16:49 00:43 WBC (3.8-10.6) k/uL Neutrophils # (1.3-7.7) k/uL Lymphocytes # (1.0-4.8) k/uL Sodium (137-145) mmol/L BUN (7-17) mg/dL Creatinine 0.49 L (0.52-1.04) mg/dL Glucose (74-99) mg/dL POC Glucose (mg/dL) 128 H 111 H (75-99) mg/dL Total Protein 6.2 L (6.3-8.2) g/dL Albumin 3.2 L (3.5-5.0) g/dL 03/27/19 03/27/19 03/27/19 Range/Units 06:10 09:06 09:06 WBC 14.8 H (3.8-10.6) k/uL Neutrophils # 12.5 H (1.3-7.7) k/uL Lymphocytes # 0.8 L (1.0-4.8) k/uL Sodium 135 L (137-145) mmol/L BUN 21 H (7-17) mg/dL Creatinine 0.51 L (0.52-1.04) mg/dL Glucose 132 H (74-99) mg/dL POC Glucose (mg/dL) 121 H (75-99) mg/dL Total Protein 5.8 L (6.3-8.2) g/dL Albumin 3.0 L (3.5-5.0) g/dL Microbiology - Last 24 Hours (Table) 03/23/19 21:07 Blood Culture - Preliminary Blood No Growth after 72 hours Assessment and Plan (1) Perforated viscus Current Visit: Yes Status: Acute Code(s): R19.8 - OTH SYMPTOMS AND SIGNS INVOLVING THE DGSTV SYS AND ABDOMEN SNOMED Code(s): 574495774 (2) Sepsis Current Visit: Yes Status: Acute Code(s): A41.9 - SEPSIS, UNSPECIFIED ORGANISM SNOMED Code(s): 99435314 <Nini Alexandre N - Last Filed: 03/27/19 19:36> Subjective At this time, patient still not agreeable for surgery as she reports "I feel fine." Will repeat CT of the abdomen pelvis tomorrow. Continue with IV antibiotics and TPN Objective - Vital Signs Vital signs: Vital Signs Temp 98.2 F 03/27/19 15:00 Pulse 112 H 03/27/19 15:00 Resp 16 03/27/19 15:00 BP 103/68 03/27/19 15:00 Pulse Ox 95 03/27/19 15:00 Intake & Output 03/27/19 03/27/19 03/28/19 06:59 18:59 06:59 Intake Total 1011 1300 Balance 1011 1300 Weight 82 kg 82 kg Intake: IV 1300 Amino Acid 5%-D15w+Lytes* 600 E* 1,000 ml @ 75 mls/hr IV .BY DURATION [facility] Rx#: [id number] Anidulafungin 100 mg In 100 Sodium Chloride 0.9% 100 ml @ 84 mls/hr IVPB DAILY [facility] Rx#:[id number] Meropenem 1 gm In Sodium 100 Chloride 0.9% 100 ml @ 200 mls/hr IVPB Q8HR [facility] Rx#:[id number] Sodium Chloride 0.9% 500 500 ml 500 ml @ 999 mls/hr IV .Q31M [facility] Rx#:[id number] Intake, IV Titration 1011 Amount Mvi, Adult No.4 with Vit 1011 K 10 ml Trace (Conc-1Ml/ Dose) 1 ml In Amino Acid 5%-D15w+Lytes*E* 1,000 ml @ 75 mls/hr IV .BY DURATION [facility] Rx#: [id number] Other: Voiding Method Bedside Commode - Labs CBC & Chem 7: 03/27/19 09:06 03/27/19 09:06 Labs: Abnormal Lab Results - Last 24 Hours (Table) 03/27/19 03/27/19 03/27/19 Range/Units 00:43 06:10 09:06 WBC 14.8 H (3.8-10.6) k/uL Neutrophils # 12.5 H (1.3-7.7) k/uL Lymphocytes # 0.8 L (1.0-4.8) k/uL Sodium (137-145) mmol/L BUN (7-17) mg/dL Creatinine (0.52-1.04) mg/dL Glucose (74-99) mg/dL POC Glucose (mg/dL) 111 H 121 H (75-99) mg/dL Total Protein (6.3-8.2) g/dL Albumin (3.5-5.0) g/dL 03/27/19 03/27/19 03/27/19 Range/Units 09:06 12:00 18:13 WBC (3.8-10.6) k/uL Neutrophils # (1.3-7.7) k/uL Lymphocytes # (1.0-4.8) k/uL Sodium 135 L (137-145) mmol/L BUN 21 H (7-17) mg/dL Creatinine 0.51 L (0.52-1.04) mg/dL Glucose 132 H (74-99) mg/dL POC Glucose (mg/dL) 136 H 112 H (75-99) mg/dL Total Protein 5.8 L (6.3-8.2) g/dL Albumin 3.0 L (3.5-5.0) g/dL Microbiology - Last 24 Hours (Table) 03/23/19 21:07 Blood Culture - Preliminary Blood No Growth after 72 hours Assessment and Plan (1) Perforated viscus Current Visit: Yes Status: Acute Code(s): R19.8 - OTH SYMPTOMS AND SIGNS INVOLVING THE DGSTV SYS AND ABDOMEN SNOMED Code(s): 836033166 (2) Diverticulitis Current Visit: No Status: Acute Code(s): K57.92 - DVTRCLI OF INTEST, PART UNSP, W/O PERF OR ABSCESS W/O BLEED SNOMED Code(s): 533672524 (3) Sepsis Current Visit: Yes Status: Acute Code(s): A41.9 - SEPSIS, UNSPECIFIED ORGANISM SNOMED Code(s): 46115720
[2019-03-27 12:12] LABS: Glucose,Whole Blood 136 mg/dL (75-99)
--- NOTE | 2019-03-27 12:24 | P.PN ---
Subjective Progress Note Date: 03/27/19 Principal diagnosis: Right foot pain Patient was seen yesterday in consultation for right foot pain. x-rays reveal no fractures or dislocation. There is age-related show changes at the midfoot. There is also heel spur. She was placed in a walking boot. Her pain is improved today. She has no new complaints regarding her foot or ankle. She denies fever or chills. She denies new numbness or tingling. She has no calf pain. Objective - Vital Signs Vital signs: Vital Signs Temp 98.1 F 03/27/19 07:00 Pulse 92 03/27/19 07:00 Resp 15 03/27/19 07:00 BP 128/78 03/27/19 07:00 Pulse Ox 94 L 03/27/19 07:00 Intake & Output 03/26/19 03/27/19 03/27/19 18:59 06:59 18:59 Intake Total 1011 1011 Balance 1011 1011 Weight 82 kg 82 kg Intake: Intake, IV Titration 1011 1011 Amount Mvi, Adult No.4 with Vit 1011 1011 K 10 ml Trace (Conc-1Ml/ Dose) 1 ml In Amino Acid 5%-D15w+Lytes*E* 1,000 ml @ 75 mls/hr IV .BY DURATION [facility] Rx#: [id number] Other: Voiding Method Toilet Bedside Commode # Voids 1 - Exam inspection of the right foot is benign. There is no erythema, ecchymoses or deformity. Is not hot to touch. she is mildly tender across the dorsum of the midfoot. The plantar surface is nontender. Range of motion is within normal limits. Ligamentously stable foot and ankle. 2+ dorsalis pedis pulses are present as well as less than 2 second capillary refill. After soft nontender. - Constitutional General appearance: Present: no acute distress - Labs CBC & Chem 7: 03/27/19 09:06 03/27/19 09:06 Labs: Abnormal Lab Results - Last 24 Hours (Table) 03/26/19 03/26/19 03/27/19 Range/Units 11:54 16:49 00:43 WBC (3.8-10.6) k/uL Neutrophils # (1.3-7.7) k/uL Lymphocytes # (1.0-4.8) k/uL Sodium (137-145) mmol/L BUN (7-17) mg/dL Creatinine 0.49 L (0.52-1.04) mg/dL Glucose (74-99) mg/dL POC Glucose (mg/dL) 128 H 111 H (75-99) mg/dL Total Protein 6.2 L (6.3-8.2) g/dL Albumin 3.2 L (3.5-5.0) g/dL 03/27/19 03/27/19 03/27/19 Range/Units 06:10 09:06 09:06 WBC 14.8 H (3.8-10.6) k/uL Neutrophils # 12.5 H (1.3-7.7) k/uL Lymphocytes # 0.8 L (1.0-4.8) k/uL Sodium 135 L (137-145) mmol/L BUN 21 H (7-17) mg/dL Creatinine 0.51 L (0.52-1.04) mg/dL Glucose 132 H (74-99) mg/dL POC Glucose (mg/dL) 121 H (75-99) mg/dL Total Protein 5.8 L (6.3-8.2) g/dL Albumin 3.0 L (3.5-5.0) g/dL 03/27/19 Range/Units 12:00 WBC (3.8-10.6) k/uL Neutrophils # (1.3-7.7) k/uL Lymphocytes # (1.0-4.8) k/uL Sodium (137-145) mmol/L BUN (7-17) mg/dL Creatinine (0.52-1.04) mg/dL Glucose (74-99) mg/dL POC Glucose (mg/dL) 136 H (75-99) mg/dL Total Protein (6.3-8.2) g/dL Albumin (3.5-5.0) g/dL Microbiology - Last 24 Hours (Table) 03/23/19 21:07 Blood Culture - Preliminary Blood No Growth after 72 hours Assessment and Plan (1) Right foot pain Narrative/Plan: She will continue with walking boot when necessary. Also advised with continued ice and elevation as needed. She may resume her arthritis medications when okay with her primary team and Dr. Mcgowan. She may follow up as an outpatient at this point and we'll sign off for now. Thank you Current Visit: Yes Status: Acute Code(s): M79.671 - PAIN IN RIGHT FOOT SNOMED Code(s): 74396796 Time with Patient: Less than 30
[2019-03-27 18:24] LABS: Glucose,Whole Blood 112 mg/dL (75-99)
[2019-03-27] MEDS: FAT EMULSION 20% 250 ML in EMPTY BAG 1 BAG IV SCH (21:02)
[2019-03-27 23:43] LABS: Glucose,Whole Blood 124 mg/dL (75-99)
[2019-03-27] MEDS: PANTOPRAZOLE 40 MG/10 ML VIAL IVP SCH (23:50)
[2019-03-28] MEDS: 1: MVI, ADULT NO.4 WITH VIT K 10 ML, TRACE (CONC-1ML/DOSE) 1 ML in AMINO ACID 5%-D15W+LY IV SCH ×12 (03:06→20:11)
[2019-03-28 06:14] LABS: Glucose,Whole Blood 119 mg/dL (75-99)
[2019-03-28] MEDS ORDERED: SODIUM CHLORIDE 0.9% 1,000 ML IV ONE ×2 (07:15→09:27)
--- NOTE | 2019-03-28 07:45 | PN ---
PROGRESS NOTE DATE OF SERVICE: 03/27/2019 This 78-year-old woman who was admitted with multiple medical issues being followed closely by surgery at this time. The patient had intraabdominal abscess with pneumoperitoneum and sepsis. The patient recently had anterior resection with lysis of adhesions. Patient being closely monitored at this time. The patient is currently n.p.o. The patient had some small amount of emesis. PAST MEDICAL HISTORY: Reviewed. REVIEW OF SYSTEMS: CARDIOVASCULAR: No angina. Respiration: As mentioned earlier. GI as mentioned earlier. : As mentioned earlier. CENTRAL NERVOUS SYSTEM: No focal deficits. CURRENT MEDICATIONS: 1. Tylenol p.r.n. 2. Lioresal. 3. Lovenox 40 mg subcu daily. 4. TPN. 5. Meropenem 1 gram q.8. 6. Magnesium/potassium per protocol. 7. Narcan 0.2 q.2h p.r.n. 8. Saline flushes. PHYSICAL EXAM: Patient is alert and oriented times three. Pulse 112, blood pressure is 103/68, respirations 16, temperature 98.2, pulse ox 94% on room air. HEENT: Conjunctivae normal. Neck: No jugular venous distention. Cardiovascular systems: S1, S2. Respirations: Breath sounds diminished in the bases. Bilateral scattered rhonchi and crackles. ABDOMEN: Soft. Status post surgery. Legs are no swelling. No edema. Central nervous system: No focal deficits. LAB STUDIES: WBC 14.8, hemoglobin is 12, sodium 135. ASSESSMENT: 1. Intraabdominal abscess, pneumoperitoneum. 2. Sepsis, present on admission secondary to above. 3. 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 4. History of perforated diverticulitis with colostomy reversed. 5. Dehydration. 6. Gastroesophageal reflux disease. 7. Idiopathic peripheral neuropathy. 8. Obesity body mass 31.8. 9. Normocytic anemia. 10.Hypoalbuminemia. RECOMMENDATIONS AND DISCUSSION: Recommend to continue current medications. Continue with monitoring, management and symptomatic treatment. Otherwise, at this time, we will recommend to continue to the broad-spectrum IV antibiotics and antifungal agents. The cultures are negative so far. White count is 14.8. We will also continue with DVT prophylaxis. Patient is on meropenem as well. Closely follow with surgery. Further recommendations to follow. MMODL / IJN: [id number] /
[2019-03-28] MEDS: PANTOPRAZOLE 40 MG/10 ML VIAL IVP SCH (08:50)
[2019-03-28] MEDS: IOPAMIDOL-300 CONTRAST 30 ML VIAL (ORAL USE) PO PRN ×2 (09:31→10:46)
[2019-03-28 09:57] LABS: Basophils % (A) 0 %; Eosinophils # (A) 0.5 k/uL (0-0.7); Eosinophils % (A) 6 %; HCT 38.1 % (34.0-46.0); Hypochromasia Slight; Lymphocytes # (A) 0.7 k/uL (1.0-4.8); Lymphocytes % (A) 8 %; MCH 28.8 pg (25.0-35.0); MCHC 31.6 g/dL (31.0-37.0); MCV 91.3 fL (80.0-100.0); Mean Platelet Volume 8.6; Monocytes # (A) 0.8 k/uL (0-1.0); Monocytes % (A) 8 %; Neutrophils # (A) 7.3 k/uL (1.3-7.7); Neutrophils % (A) 77 %; Platelet Count 321 k/uL (150-450); RBC 4.17 m/uL (3.80-5.40); RDW 14.7 % (11.5-15.5); WBC 9.5 k/uL (3.8-10.6)
[2019-03-28] MEDS: MEROPENEM 1 GM in SODIUM CHLORIDE 0.9% 100 ML IVPB SCH ×3 (10:02→23:29)
[2019-03-28 10:08] LABS: ALT 15 U/L (9-52); AST 20 U/L (14-36); African American GFR (CKD) >90 (>60 ml/min/1.73 sqM); Albumin 2.9 g/dL (3.5-5.0); Alkaline Phosphatase 60 U/L (38-126); Anion Gap 8 mmol/L; Blood Urea Nitrogen 22 mg/dL (7-17); Calcium 8.5 mg/dL (8.4-10.2); Carbon Dioxide 24 mmol/L (22-30); Chloride 103 mmol/L (98-107); Glucose 103 mg/dL (74-99); Magnesium 2.3 mg/dL (1.6-2.3); Phosphorus 3.5 mg/dL (2.5-4.5); Potassium 4.7 mmol/L (3.5-5.1); Sodium 135 mmol/L (137-145); Total Bilirubin 0.4 mg/dL (0.2-1.3); Total Protein 5.6 g/dL (6.3-8.2)
[2019-03-28] MEDS: ENOXAPARIN 40 MG/0.4 ML SYRINGE SQ SCH (10:46)
[2019-03-28] MEDS: ANIDULAFUNGIN 100 MG in SODIUM CHLORIDE 0.9% 100 ML IVPB SCH (10:46)
[2019-03-28 11:57] LABS: Glucose,Whole Blood 93 mg/dL (75-99)
--- NOTE | 2019-03-28 11:59 | CT ---
EXAMINATION TYPE: CT abdomen pelvis w con DATE OF EXAM: 03/28/2019 COMPARISON: 03/08/2019 HISTORY: 78-year-old female Viscus perforation TECHNIQUE: Contiguous axial scanning of the abdomen and pelvis following administration of 100 ml Iso morgan 300 IV contrast. Delayed images through the kidneys and coronal/sagittal reconstructions perform ed. CT DLP: 1342.8 mGycm Automated exposure control for dose reduction was used. FINDINGS: Heart normal size without pericardial effusion. Strandy atelectasis in the lower lungs without pleura l effusion. There is some mild pneumomediastinum noted around the esophagus and in the pericardiac region. Stable 3.2 cm cyst right kidney and some focal fat along the anterior falciform ligament. Focal calci fication likely calcified granuloma left liver lobe. Portal venous system is patent. No biliary ductal dilatation. 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 Redemonstrated parapelvic cysts within the left kidney. No dilated small bowel. Mild free fluid in the pelvis. There is moderate to large free air demonstrat ed. This is free intraperitoneal air as well as air extending along the retroperitoneum. The site exact site of perforation is not clearly evident. Oral contrast has progressed to the level of the mid ascending colon. There is a large focal air collection located in the left midabdomen measuring 12.4 cm craniocaudal b y 8.6 L AP by 9.7 cm wide. There is some layering fluid and debris within. The colon shows 2 sites of prior resections and re-anastomoses within the sigmoid colon. The more pro ximal sigmoid anastomosis is some associated wall thickening and may have a subtle extension to this large air collection, refer to coronal image 51. Coils along the anterior abdominal wall from prior mesh repair. Bladder is urine distended. Uterus surgically absent. No pelvic lymphadenopathy seen. Bones: There is new thickening and increased soft tissue density centered along the right gluteus med ius musculature, for example, refer to axial image 71 and 82. Accentuated lumbar lordosis with facet arthropathy. Degenerative disc disease greatest at L1-L2. IMPRESSION: 1. BOWEL PERFORATION EVIDENCED BY A MODERATE TO LARGE AMOUNT OF FREE AIR. THIS IS COMPRISED OF BOT H FREE INTRAPERITONEAL AIR AND RETROPERITONEAL AIR. ADDITIONAL MILD PNEUMOMEDIASTINUM. 2. LARGE FOCAL AIR COLLECTION MEASURING UP TO 12.4 CM IN THE LEFT MID ABDOMEN CONTAINING SOME FLUID A ND FECAL DEBRIS. THIS MAY BE ARISING FROM THE SITE OF THE PATIENT'S PROXIMAL SIGMOID ANASTOMOSIS. 3. MILD PELVIC FREE FLUID. 4. NEW INCREASED SOFT TISSUE DENSITY AND THICKENING ALONG THE RIGHT GLUTEAL MUSCULATURE. FINDING SUSP ICIOUS FOR NEW INTRAMUSCULAR HEMATOMA. QUERY ANTICOAGULATION STATUS. FOLLOW-UP HEMOGLOBIN/HEMATOCRIT LEVELS.
--- NOTE | 2019-03-28 12:56 | P.PN ---
Subjective Progress Note Date: 03/28/19 CHIEF COMPLAINT: leukocytosis HISTORY OF PRESENT ILLNESS: Patient examined at the bedside. Patient denies abdominal pain. Denies nausea or vomiting. She is passing flatus and having BMs. BP this morning was on the lower side and heart rate in low 100s. She did re ceive a 1L fluid bolus. She is afebrile. WBC 9.5. Hemoglobin 12.0. PHYSICAL EXAM: VITAL SIGNS: Reviewed. GENERAL: Well-developed in no acute distress. HEENT: No sclera icterus. Extraocular movements grossly intact. Moist buccal mucosa. Head is atraumatic, normocephalic. Hears conversational speech. No nasal drainage. NECK: Supple without lymphadenopathy. CHEST: Non-labored respirations and equal bilateral excursions. CARDIOVASCULAR: Regular rate with regular rhythm. Palpable 2+ radial pulses. ABDOMEN: Soft. Nondistended. Nontender. Midline incision noted with no drainage or signs of infection. MUSCULOSKELETAL: No clubbing, cyanosis or edema. NEUROLOGIC: No focal or lateralizing signs. Cranial nerves II through XII grossly intact. PSYCH: Appropriate affect. Alert and oriented to person, place and time. SKIN: Well perfused. Good skin turgor. ASSESSMENT: 1. Intraabdominal abscess with pneumoperitoneum 2. Sepsis, present on admission, secondary to above 3. 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 History of perforated diverticulitis with colostomy, since reversed 5. Dehydration secondary to poor oral intake 6. Hypokalemia 7. Hypophosphatemia PLAN: 1. NPO. Continue TPN 2. Continue IV fluids. Give additional 1L fluid bolus 3. ID on consult. Antibiotics per ID 4. Chloraprep to abdominal incision daily per Dr. Alexandre. May leave abdominal binder off. 5. Repeat CT abdomen and pelvis. Await results Nurse practitioner note has been reviewed by physician. Signing provider agrees with the documented findings, assessment, and plan of care. Objective - Vital Signs Vital signs: Vital Signs Temp 98.4 F 03/28/19 07:00 Pulse 105 H 03/28/19 07:00 Resp 16 03/28/19 07:00 BP 114/67 03/28/19 07:00 Pulse Ox 92 L 03/28/19 07:00 Intake & Output 03/27/19 03/28/19 03/28/19 18:59 06:59 18:59 Intake Total 2311 590 Balance 2311 590 Weight 82 kg 85 kg Intake: IV 1300 Amino Acid 5%-D15w+Lytes* 600 E* 1,000 ml @ 75 mls/hr IV .BY DURATION [facility] Rx#: [id number] Anidulafungin 100 mg In 100 Sodium Chloride 0.9% 100 ml @ 84 mls/hr IVPB DAILY [facility] Rx#:[id number] Meropenem 1 gm In Sodium 100 Chloride 0.9% 100 ml @ 200 mls/hr IVPB Q8HR [facility] Rx#:[id number] Sodium Chloride 0.9% 500 500 ml 500 ml @ 999 mls/hr IV .Q31M ONE Rx#:[id number] Intake, IV Titration 1011 Amount Mvi, Adult No.4 with Vit 1011 K 10 ml Trace (Conc-1Ml/ Dose) 1 ml In Amino Acid 5%-D15w+Lytes*E* 1,000 ml @ 75 mls/hr IV .BY DURATION [facility] Rx#: [id number] Oral 590 Other: # Voids 4 # Bowel Movements 1 - Labs CBC & Chem 7: 03/28/19 08:28 03/28/19 08:28 Labs: Abnormal Lab Results - Last 24 Hours (Table) 03/27/19 03/27/19 03/28/19 Range/Units 18:13 23:42 06:01 Lymphocytes # (1.0-4.8) k/uL Sodium (137-145) mmol/L BUN (7-17) mg/dL Glucose (74-99) mg/dL POC Glucose (mg/dL) 112 H 124 H 119 H (75-99) mg/dL Total Protein (6.3-8.2) g/dL Albumin (3.5-5.0) g/dL 03/28/19 03/28/19 Range/Units 08:28 08:28 Lymphocytes # 0.7 L (1.0-4.8) k/uL Sodium 135 L (137-145) mmol/L BUN 22 H (7-17) mg/dL Glucose 103 H (74-99) mg/dL POC Glucose (mg/dL) (75-99) mg/dL Total Protein 5.6 L (6.3-8.2) g/dL Albumin 2.9 L (3.5-5.0) g/dL Microbiology - Last 24 Hours (Table) 03/23/19 21:07 Blood Culture - Preliminary Blood No Growth after 96 hours Assessment and Plan (1) Perforated viscus Current Visit: Yes Status: Acute Code(s): R19.8 - OTH SYMPTOMS AND SIGNS IN VOLVING THE DGSTV SYS AND ABDOMEN SNOMED Code(s): 986872699 (2) Sepsis Current Visit: Yes Status: Acute Code(s): A41.9 - SEPSIS, UNSPECIFIED ORGANISM SNOMED Code(s): 86196380
[2019-03-28 13:27] LABS: Prothrombin Time 10.4 sec (9.0-12.0)
--- NOTE | 2019-03-28 14:07 | P.PN ---
Progress Note - Text Progress Note Date: 03/28/19 discussed with patient the concern with ongoing bowel leak based on previous ct scan findings, option of draining air collection versus definitive repair of bowel and she wishes to go forward with repair. drain placement likely not a durable option in light of poor wall thickness, and patient received lovenox today
[2019-03-28 16:50] LABS: Glucose,Whole Blood 58 mg/dL (75-99)
[2019-03-28] MEDS: DEXTROSE 10 % IN WATER 250 ML IV STA ×2 (17:05→17:57)
[2019-03-28 17:10] LABS: African American GFR (CKD) >90 (>60 ml/min/1.73 sqM); Anion Gap 7 mmol/L; Blood Urea Nitrogen 22 mg/dL (7-17); Calcium 8.3 mg/dL (8.4-10.2); Carbon Dioxide 22 mmol/L (22-30); Chloride 108 mmol/L (98-107); Glucose 64 mg/dL (74-99); Magnesium 2.1 mg/dL (1.6-2.3); Phosphorus 2.3 mg/dL (2.5-4.5); Potassium 4.3 mmol/L (3.5-5.1); Sodium 137 mmol/L (137-145)
[2019-03-28 17:13] LABS: Glucose,Whole Blood 125 mg/dL (75-99)
--- NOTE | 2019-03-28 17:28 | P.PN ---
Progress Note - Text Progress Note Date: 03/28/[address] of the abdomen and pelvis personally reviewed in comparison to outside films, 6 days ago, March 23. Also findings personally reviewed with radiologists Drs. Mohr, Ilsa, and Ashley. As patient initially presented with moderate free air s/p recent colectomy 2 to 3 weeks ago, clinically she states "I feel fine!" She has been afebrile. WBC is normal today. She denies any abdominal pain despite deep palpation. My clinical exam of the abdomen is disconcordant with consultants as patient reports "the other doctors haven't checked my belly recently." Overall, with her clinical status, repeat exploration even more high risk/morbid with possible ostomy creation. Additionally, patient has marked improved since admission. Repeat CT does show some improvement of diffuse free air with air pocket of 10+cm. I have requested and clarified purpose of drain to create conduit for any residual air and allow collapse of residual air/abscess pocket. Patient is passing moderate flatus and having bowel movements at this time. Per family and patient request, will try least invasive measure for recovery with leaving repeat laparotomy and colostomy as last resort. Above care plan described and discussed with radiologists as stated above, the patient, and her daughter over the phone Discussion and coordination of care over 45 minutes.
[2019-03-28 17:58] LABS: Glucose,Whole Blood 94 mg/dL (75-99)
--- NOTE | 2019-03-28 20:03 | PN ---
PROGRESS NOTE DATE OF SERVICE: 03/28/2019 I am covering for Dr. Jiménez. HISTORY OF PRESENT ILLNESS: This 78-year-old woman who was admitted with abdominal pain also had multiple abdominal findings in the recent CAT scan done. The patient has suspected intraabdominal abscess of free air and pneumoperitoneum. Also patient also has sepsis. The patient also had recent surgery Radiology and surgery following the patient closely regarding further management. Also patient on broad spectrum IV antibiotics. PAST MEDICAL HISTORY: Reviewed. REVIEW OF SYSTEMS: CARDIOVASCULAR: No angina or palpitations. RESPIRATION as mentioned earlier. GI as mentioned earlier. : No dysuria. NERVOUS SYSTEMS: No focal deficits. CURRENT MEDICATIONS ARE: 1. Tylenol 650 q.6h p.r.n. 2. Anidulafungin 100 mg IV q.8h. 3. Lioresal 5 mg p.o. t.i.d. p.r.n. 4. Lovenox 40 mg subcu daily. 6. Meropenem 1 g IV q.8h. 7. Replacement protocols: Magnesium, phosphorus and potassium. 8. Narcan p.r.n. 9. Protonix p.r.n. 10.TPN. 11.Saline flushes. PHYSICAL EXAM: Patient is alert, oriented x3. The pulse is 105. Blood pressure 114/67, respirations 16, temperature 98.4, pulse ox 98% on room air. HEENT: Conjunctivae normal. Oral mucosa moist. NECK is no jugular venous distention. No carotid bruit. No lymph node enlargement. Cardiovascular system: S1, S2 muffled. No S3, no S4. RESPIRATORY: Breath sounds diminished in the bases. Bilateral scattered rhonchi and crackles. Expiratory wheezing also present. ABDOMEN: Soft, nontender. No mass palpable. Legs no edema. No swelling. NERVOUS SYSTEM: Higher functions as mentioned earlier. Moves all four extremities. No focal deficits. LYMPHATICS: No lymph nodes palpable in the neck, axilla or groin. SKIN: No ulcer, rash or bleeding. JOINTS: No active deforming arthropathy. LABS: CBC within normal limits. Sodium 130, potassium 4.7 and glucose 103. ASSESSMENT: 1. Intraabdominal abscess, pneumoperitoneum. 2. Sepsis, present on admission secondary to above. 3. 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 4. History of perforated diverticulitis with colostomy reversal. 5. Dehydration. 6. Gastroesophageal reflux disease. 7. Idiopathic peripheral neuropathy. 8. Obesity with body mass of 31.8. 9. Normocytic anemia. 10.Hypoalbuminemia. RECOMMENDATIONS AND DISCUSSION: Recommend to continue current medications, continue with monitoring, symptomatic treatment. Otherwise, at this time, closely follow with surgery and intervention radiology. As mentioned earlier, the patient is currently on meropenem, and Eraxis per ID recommendations. The white count is 9.5, and sodium is 135. Other labs are reviewed. Prognosis guarded because of multiple complex medical issues, we will continue to monitor. Further recommendations to follow. MMODL / IJN: [id number] / GARETH
[2019-03-28 23:49] LABS: Glucose,Whole Blood 114 mg/dL (75-99)
[2019-03-29 05:58] LABS: Glucose,Whole Blood 104 mg/dL (75-99)
[2019-03-29 07:03] LABS: Mean Platelet Volume 8.4; Platelet Count 317 k/uL (150-450); Prothrombin Time 10.8 sec (9.0-12.0)
[2019-03-29 07:18] LABS: African American GFR (CKD) >90 (>60 ml/min/1.73 sqM); Anion Gap 9 mmol/L; Blood Urea Nitrogen 21 mg/dL (7-17); Calcium 8.5 mg/dL (8.4-10.2); Carbon Dioxide 23 mmol/L (22-30); Chloride 105 mmol/L (98-107); Glucose 100 mg/dL (74-99); Magnesium 2.4 mg/dL (1.6-2.3); Phosphorus 3.6 mg/dL (2.5-4.5); Potassium 4.6 mmol/L (3.5-5.1); Sodium 137 mmol/L (137-145)
[2019-03-29] MEDS: PANTOPRAZOLE 40 MG/10 ML VIAL IVP SCH ×2 (08:15→20:30)
[2019-03-29] MEDS: MEROPENEM 1 GM in SODIUM CHLORIDE 0.9% 100 ML IVPB SCH ×3 (08:17→23:43)
[2019-03-29] MEDS: 1: MVI, ADULT NO.4 WITH VIT K 10 ML, TRACE (CONC-1ML/DOSE) 1 ML in AMINO ACID 5%-D15W+LY IV SCH ×6 (08:46→20:31)
[2019-03-29] MEDS ORDERED: HYDROmorphone 0.5 MG/0.5 ML SYRINGE IVP STA (09:52)
[2019-03-29] MEDS: ANIDULAFUNGIN 100 MG in SODIUM CHLORIDE 0.9% 100 ML IVPB SCH (10:58)
--- NOTE | 2019-03-29 11:18 | CT ---
EXAMINATION TYPE: CT guided abscess drainage DATE OF EXAM: 03/29/2019 COMPARISON: 03/28/2013 HISTORY: Abscess cavity CT DLP: 938 mGycm The procedure is discussed with the patient, the risks, complications, benefits and alternatives, wer e discussed and any questions were answered. Informed consent was obtained. The patient is placed s upine on the CT table, prepped and draped in the usual sterile fashion. Utilizing a 22-gauge Chiba needle access into the large left abscess cavity was achieved and there is placement of an O.018 guidewire. Conversion to open 035 system and serial dilation 8 Sammarinese with lisseth cement 8 Sammarinese drainage catheter. Repeat imaging demonstrated ideal placement catheter. Abscess cavi ty was virtually resolved post placement. All elements of maximal barrier technique were utilized. The patient remained stable throughout the procedure with no immediate postprocedural complication. IMPRESSION: 1. Successful CT guided abdominal abscess catheter insertion
[2019-03-29] MEDS: ONDANSETRON 4 MG/2 ML VIAL IVP PRN (12:32)
[2019-03-29 12:47] LABS: Glucose,Whole Blood 116 mg/dL (75-99)
--- NOTE | 2019-03-29 15:30 | P.PN ---
<Elizabeth Benito A - Last Filed: 03/29/19 15:25> Subjective Progress Note Date: 03/29/19 CHIEF COMPLAINT: leukocytosis HISTORY OF PRESENT ILLNESS: Patient examined at the bedside. Patient is s/p drain placement with evacuation of air by interventional radiology. Patient denies abdominal pain. Denies nausea or vomiting. She is passing flatus. She remains on TPN. She is requesting liquid diet. PHYSICAL EXAM: VITAL SIGNS: Reviewed. GENERAL: Well-developed in no acute distress. HEENT: No sclera icterus. Extraocular movements grossly intact. Moist buccal mucosa. Head is atraumatic, normocephalic. Hears conversational speech. No nasal drainage. NECK: Supple without lymphadenopathy. CHEST: Non-labored respirations and equal bilateral excursions. CARDIOVASCULAR: Regular rate with regular rhythm. Palpable 2+ radial pulses. ABDOMEN: Soft. Nondistended. Nontender. Midline incision noted with no drainage or signs of infection. Drain to left side abdomen with no output. MUSCULOSKELETAL: No clubbing, cyanosis or edema. NEUROLOGIC: No focal or lateralizing signs. Cranial nerves II through XII grossly intact. PSYCH: Appropriate affect. Alert and oriented to person, place and time. SKIN: Well perfused. Good skin turgor. ASSESSMENT: 1. Intraabdominal abscess with pneumoperitoneum 2. Sepsis, present on admission, secondary to above 3. 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 History of perforated diverticulitis with colostomy, since reversed 5. Dehydration secondary to poor oral intake 6. Hypokalemia 7. Hypophosphatemia PLAN: 1. Begin clear liquid diet 2. Continue TPN until PO intake increases 3. ID on consult. Antibiotics per ID 4. Chloraprep to abdominal incision daily per Dr. Alexandre. 5. Monitor drainage bag 6. Tentative discharge to ECF on Wednesday if patient remains stable Nurse practitioner note has been reviewed by physician. Signing provider agrees with the documented findings, assessment, and plan of care. Objective - Vital Signs Vital signs: Vital Signs Temp 97.8 F 03/29/19 07:00 Pulse 87 03/29/19 12:12 Resp 16 03/29/19 10:25 BP 123/72 03/29/19 12:12 Pulse Ox 96 03/29/19 12:12 Intake & Output 03/28/19 03/29/19 03/29/19 18:59 06:59 18:59 Intake Total 1750 Balance 1750 Weight 86.6 kg 86.6 kg Intake: IV 750 Amino Acid 5%-D15w+Lytes* 750 E* 1,000 ml @ 75 mls/hr IV .BY DURATION [facility] Rx#: [id number] Intake, IV Titration 1000 Amount Amino Acid 5%-D15w+Lytes* 1000 E* 1,000 ml @ 75 mls/hr IV .BY DURATION [facility] Rx#: [id number] Other: Voiding Method Bedside Commode # Voids 1 - Labs CBC & Chem 7: 03/29/19 06:33 03/29/19 06:33 Labs: Abnormal Lab Results - Last 24 Hours (Table) 03/28/19 03/28/19 03/28/19 Range/Units 16:42 16:48 17:12 Chloride 108 H (98-107) mmol/L BUN 22 H (7-17) mg/dL Creatinine 0.45 L (0.52-1.04) mg/dL Glucose 64 L (74-99) mg/dL POC Glucose (mg/dL) 58 L 125 H (75-99) mg/dL Calcium 8.3 L (8.4-10.2) mg/dL Phosphorus 2.3 L (2.5-4.5) mg/dL Magnesium (1.6-2.3) mg/dL 03/28/19 03/29/19 03/29/19 Range/Units 23:47 05:56 06:33 Chloride (98-107) mmol/L BUN 21 H (7-17) mg/dL Creatinine 0.49 L (0.52-1.04) mg/dL Glucose 100 H (74-99) mg/dL POC Glucose (mg/dL) 114 H 104 H (75-99) mg/dL Calcium (8.4-10.2) mg/dL Phosphorus (2.5-4.5) mg/dL Magnesium 2.4 H (1.6-2.3) mg/dL 03/29/19 Range/Units 11:41 Chloride (98-107) mmol/L BUN (7-17) mg/dL Creatinine (0.52-1.04) mg/dL Glucose (74-99) mg/dL POC Glucose (mg/dL) 116 H (75-99) mg/dL Calcium (8.4-10.2) mg/dL Phosphorus (2.5-4.5) mg/dL Magnesium (1.6-2.3) mg/dL Microbiology - Last 24 Hours (Table) 03/23/19 21:07 Blood Culture - Preliminary Blood No Growth after 120 hours Assessment and Plan (1) Perforated viscus Current Visit: Yes Status: Acute Code(s): R19.8 - OTH SYMPTOMS AND SIGNS INVOLVING THE DGSTV SYS AND ABDOMEN SNOMED Code(s): 461380463 (2) Sepsis Current Visit: Yes Status: Acute Code(s): A41.9 - SEPSIS, UNSPECIFIED ORGANISM SNOMED Code(s): 17944845 <Nini Alexandre N - Last Filed: 03/29/19 17:28> Subjective Patient reports no pain from her placement of a drainage tube. Drainage system being used to drain a large air pocket. Otherwise, patient afebrile. We'll start liquid diet. Should she remain stable, possible discharge in 5 days, April 03 on diet and IV antibiotics Objective - Vital Signs Vital signs: Vital Signs Temp 98.1 F 03/29/19 15:31 Pulse 92 03/29/19 15:31 Resp 15 03/29/19 15:31 BP 127/64 03/29/19 15:31 Pulse Ox 95 03/29/19 15:31 Intake & Output 03/28/19 03/29/19 03/29/19 18:59 06:59 18:59 Intake Total 1750 Balance 1750 Weight 86.6 kg 86.6 kg Intake: IV 750 Amino Acid 5%-D15w+Lytes* 750 E* 1,000 ml @ 75 mls/hr IV .BY DURATION [facility] Rx#: [id number] Intake, IV Titration 1000 Amount Amino Acid 5%-D15w+Lytes* 1000 E* 1,000 ml @ 75 mls/hr IV .BY DURATION [facility] Rx#: [id number] Other: Voiding Method Bedside Commode # Voids 1 - Labs CBC & Chem 7: 03/29/19 06:33 03/29/19 06:33 Labs: Abnormal Lab Results - Last 24 Hours (Table) 03/28/19 03/29/19 03/29/19 Range/Units 23:47 05:56 06:33 BUN 21 H (7-17) mg/dL Creatinine 0.49 L (0.52-1.04) mg/dL Glucose 100 H (74-99) mg/dL POC Glucose (mg/dL) 114 H 104 H (75-99) mg/dL Magnesium 2.4 H (1.6-2.3) mg/dL 03/29/19 Range/Units 11:41 BUN (7-17) mg/dL Creatinine (0.52-1.04) mg/dL Glucose (74-99) mg/dL POC Glucose (mg/dL) 116 H (75-99) mg/dL Magnesium (1.6-2.3) mg/dL Microbiology - Last 24 Hours (Table) 03/23/19 21:07 Blood Culture - Preliminary Blood No Growth after 120 hours Assessment and Plan (1) Perforated viscus Current Visit: Yes Status: Acute Code(s): R19.8 - OTH SYMPTOMS AND SIGNS INVOLVING THE DGSTV SYS AND ABDOMEN SNOMED Code(s): 736074559 (2) Diverticulitis Current Visit: No Status: Acute Code(s): K57.92 - DVTRCLI OF INTEST, PART UNSP, W/O PERF OR ABSCESS W/O BLEED SNOMED Code(s): 645273188 (3) Sepsis Current Visit: Yes Status: Acute Code(s): A41.9 - SEPSIS, UNSPECIFIED ORGANISM SNOMED Code(s): 26455161
[2019-03-29] MEDS: ACETAMINOPHEN TAB 325 MG TAB PO PRN ×2 (16:01→22:04)
[2019-03-29 18:09] LABS: Glucose,Whole Blood 131 mg/dL (75-99)
[2019-03-29] MEDS: FAT EMULSION 20% 250 ML in EMPTY BAG 1 BAG IV SCH (20:31)
[2019-03-30 01:13] LABS: Glucose,Whole Blood 130 mg/dL (75-99)
[2019-03-30 06:19] LABS: Glucose,Whole Blood 125 mg/dL (75-99)
--- NOTE | 2019-03-30 07:36 | XR ---
EXAMINATION TYPE: XR chest 1V portable DATE OF EXAM: 03/30/2019 COMPARISON: 06/03/2014 HISTORY: Shortness of breath TECHNIQUE: Single frontal view of the chest is obtained. FINDINGS: Subsegmental consolidation right lung base. There is a suggestion of residual small amount of free intraperitoneal air. No interstitial edema or pneumothorax. Left-sided PICC line noted. Athe rosclerotic change aorta. IMPRESSION: Right basilar atelectasis versus early infiltrate. There remains evidence of free intrap eritoneal air noted
[2019-03-30 07:50] LABS: African American GFR (CKD) >90 (>60 ml/min/1.73 sqM); Anion Gap 6 mmol/L; Blood Urea Nitrogen 21 mg/dL (7-17); Calcium 8.5 mg/dL (8.4-10.2); Carbon Dioxide 28 mmol/L (22-30); Chloride 103 mmol/L (98-107); Glucose 119 mg/dL (74-99); Magnesium 2.4 mg/dL (1.6-2.3); Phosphorus 3.4 mg/dL (2.5-4.5); Potassium 4.9 mmol/L (3.5-5.1); Sodium 137 mmol/L (137-145)
[2019-03-30] MEDS: PANTOPRAZOLE 40 MG/10 ML VIAL IVP SCH ×2 (08:12→22:05)
[2019-03-30] MEDS: MEROPENEM 1 GM in SODIUM CHLORIDE 0.9% 100 ML IVPB SCH ×2 (08:13→15:07)
--- NOTE | 2019-03-30 08:14 | PN ---
PROGRESS NOTE DATE OF SERVICE: 03/29/2019. This 78-year-old woman was admitted with multiple medical issues had intraabdominal abscess and pneumoperitoneum. The patient underwent a CT-guided drainage today by Interventional Radiology. No chest pain. No palpitations. No fever. The patient complains of mild nausea. PHYSICAL EXAM: Alert and oriented x3. The pulse is 86. Blood pressure 120/63, respiration 17, temperature 98.1, pulse ox 98% on room air. HEENT conjunctivae normal. NECK: No JVD. CARDIAC: S1, S2 muffled. RESPIRATORY: Breath sounds diminished at the bases. A few scattered rhonchi. ABDOMEN: Soft, status post surgery. RAAD drain present. No guarding rigidity next possible bowel sounds present. NERVOUS SYSTEM: No focal deficits. LABS: Sodium 137, potassium 4.6, creatinine 4.9. ASSESSMENT: 1. Intraabdominal abscess, pneumoperitoneum, status post successful aspiration CT- guided drainage. 2. Sepsis, present on admission secondary to above. 3. 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 4. History of perforated diverticulitis with colostomy reversal. 5. Dehydration. 6. Gastroesophageal reflux disease. 7. Idiopathic peripheral neuropathy. 8. Obesity with body mass index 31.8. 9. Normocytic anemia. 10.Hypoalbuminemia. RECOMMENDATIONS AND DISCUSSION: Recommend to continue current medications, continue with monitoring, symptomatic treatments. At this time I also recommend Zofran on a p.r.n. basis. Continue to monitor. Resume the rest of medications. Closely monitor with surgery. Further recommendations to follow. MMODL / IJN: [id number] /
[2019-03-30] MEDS: ACETAMINOPHEN TAB 325 MG TAB PO PRN (08:17)
[2019-03-30] MEDS: ANIDULAFUNGIN 100 MG in SODIUM CHLORIDE 0.9% 100 ML IVPB SCH (08:58)
[2019-03-30] MEDS: 1: MVI, ADULT NO.4 WITH VIT K 10 ML, TRACE (CONC-1ML/DOSE) 1 ML in AMINO ACID 5%-D15W+LY IV SCH ×6 (08:58→22:04)
[2019-03-30 12:00] LABS: Glucose,Whole Blood 112 mg/dL (75-99)
--- NOTE | 2019-03-30 12:36 | P.PN ---
<Elizabeth Benito A - Last Filed: 03/30/19 12:33> Subjective Progress Note Date: 03/30/19 CHIEF COMPLAINT: leukocytosis HISTORY OF PRESENT ILLNESS: Patient examined at the bedside. Patient is s/p drain placement with evacuation of air by interventional radiology. Patient denies abdominal pain. Denies nausea or vomiting. She is passing flatus. She remains on TPN. She is tolerating clear liquid diet. She is requesting to have diet advanced as she does not like all the cold liquids they are bringing her. chest x-ray completed this morning reveals very small residual amount of free intraperitoneal air. She is afebrile. PHYSICAL EXAM: VITAL SIGNS: Reviewed. GENERAL: Well-developed in no acute distress. HEENT: No sclera icterus. Extraocular movements grossly intact. Moist buccal mucosa. Head is atraumatic, normocephalic. Hears conversational speech. No nasal drainage. NECK: Supple without lymphadenopathy. CHEST: Non-labored respirations and equal bilateral excursions. CARDIOVASCULAR: Regular rate with regular rhythm. Palpable 2+ radial pulses. ABDOMEN: Soft. Nondistended. Nontender. Midline incision noted with no drainage or signs of infection. Drain to left side of abdomen with small amount of serosanguineous drainage in tubing. MUSCULOSKELETAL: No clubbing, cyanosis or edema. NEUROLOGIC: No focal or lateralizing signs. Cranial nerves II through XII grossly intact. PSYCH: Appropriate affect. Alert and oriented to person, place and time. SKIN: Well perfused. Good skin turgor. ASSESSMENT: 1. Intraabdominal abscess with pneumoperitoneum 2. Sepsis, present on admission, secondary to above 3. 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 History of perforated diverticulitis with colostomy, since reversed 5. Dehydration secondary to poor oral intake 6. Hypokalemia 7. Hypophosphatemia PLAN: 1. Advance diet to full liquid 2. Anticipate DC of TPN within 24-48 hours 3. Repeat CBC in AM 4. Chloraprep to abdominal incision daily per Dr. Alexandre 5. Monitor drainage bag 6. Incentive spirometry 7. Activity as toleratd 7. Tentative discharge to ECF on Wednesday if patient remains stable 8. Await final antibiotic recommendations from infectious disease Nurse practitioner note has been reviewed by physician. Signing provider agrees with the documented findings, assessment, and plan of care. Objective - Vital Signs Vital signs: Vital Signs Temp 98.2 F 03/30/19 07:19 Pulse 91 03/30/19 07:19 Resp 17 03/30/19 07:19 BP 126/78 03/30/19 07:19 Pulse Ox 95 03/30/19 07:19 Intake & Output 03/29/19 03/30/19 03/30/19 18:59 06:59 18:59 Intake Total 1251 1000 1060 Balance 1251 1000 1060 Weight 86.6 kg 86.2 kg Intake: IV 100 Meropenem 1 gm In Sodium 100 Chloride 0.9% 100 ml @ 200 mls/hr IVPB Q8HR [facility] Rx#:[id number] Intake, IV Titration 1011 1000 210 Amount Amino Acid 5%-D15w+Lytes* 1000 E* 1,000 ml @ 75 mls/hr IV .BY DURATION [facility] Rx#: [id number] Fat Emulsion 20% 250 ml 210 In Empty Bag 1 bag @ 21 mls/hr IV MoWeFr [facility] Rx#: [id number] Mvi, Adult No.4 with Vit 1011 K 10 ml Trace (Conc-1Ml/ Dose) 1 ml In Amino Acid 5%-D15w+Lytes*E* 1,000 ml @ 75 mls/hr IV .BY DURATION [facility] Rx#: [id number] Oral 240 750 Other: Voiding Method Bedside Commode Toilet # Voids 1 - Labs CBC & Chem 7: 03/29/19 06:33 03/30/19 07:00 Labs: Abnormal Lab Results - Last 24 Hours (Table) 03/29/19 03/29/19 03/30/19 Range/Units 11:41 18:05 01:02 BUN (7-17) mg/dL Glucose (74-99) mg/dL POC Glucose (mg/dL) 116 H 131 H 130 H (75-99) mg/dL Magnesium (1.6-2.3) mg/dL 03/30/19 03/30/19 03/30/19 Range/Units 06:16 07:00 11:58 BUN 21 H (7-17) mg/dL Glucose 119 H (74-99) mg/dL POC Glucose (mg/dL) 125 H 112 H (75-99) mg/dL Magnesium 2.4 H (1.6-2.3) mg/dL Microbiology - Last 24 Hours (Table) 03/29/19 10:45 Gram Stain - Preliminary Aspirate Body Fluid Culture - Preliminary Group D Enterococcus 03/23/19 21:07 Blood Culture - Final Blood No Growth after 144 hours 03/29/19 10:45 Fungal Culture - Preliminary Aspirate 03/29/19 10:45 Anaerobic Culture - Preliminary Aspirate Assessment and Plan (1) Perforated viscus Current Visit: Yes Status: Acute Code(s): R19.8 - OTH SYMPTOMS AND SIGNS INVOLVING THE DGSTV SYS AND ABDOMEN SNOMED Code(s): 419088839 (2) Sepsis Current Visit: Yes Status: Acute Code(s): A41.9 - SEPSIS, UNSPECIFIED ORGANISM SNOMED Code(s): 35846258 <Nini Alexandre N - Last Filed: 03/30/19 18:55> Subjective Overall clinically improving. Will advance diet. Continue IV antibiotics. Will discontinue TPN once tolerating diet. Continue with drain. Objective - Vital Signs Vital signs: Vital Signs Temp 98.4 F 03/30/19 14:55 Pulse 95 03/30/19 14:55 Resp 18 03/30/19 14:55 BP 117/75 03/30/19 14:55 Pulse Ox 96 03/30/19 14:55 Intake & Output 03/29/19 03/30/19 03/30/19 18:59 06:59 18:59 Intake Total 1251 1000 1060 Balance 1251 1000 1060 Weight 86.6 kg 86.2 kg Intake: IV 100 Meropenem 1 gm In Sodium 100 Chloride 0.9% 100 ml @ 200 mls/hr IVPB Q8HR [facility] Rx#:[id number] Intake, IV Titration 1011 1000 210 Amount Amino Acid 5%-D15w+Lytes* 1000 E* 1,000 ml @ 75 mls/hr IV .BY DURATION [facility] Rx#: [id number] Fat Emulsion 20% 250 ml 210 In Empty Bag 1 bag @ 21 mls/hr IV MoWeFr [facility] Rx#: [id number] Mvi, Adult No.4 with Vit 1011 K 10 ml Trace (Conc-1Ml/ Dose) 1 ml In Amino Acid 5%-D15w+Lytes*E* 1,000 ml @ 75 mls/hr IV .BY DURATION [facility] Rx#: [id number] Oral 240 750 Other: Voiding Method Bedside Commode Toilet # Voids 1 - Labs CBC & Chem 7: 03/29/19 06:33 03/30/19 07:00 Labs: Abnormal Lab Results - Last 24 Hours (Table) 03/30/19 03/30/19 03/30/19 Range/Units 01:02 06:16 07:00 BUN 21 H (7-17) mg/dL Glucose 119 H (74-99) mg/dL POC Glucose (mg/dL) 130 H 125 H (75-99) mg/dL Magnesium 2.4 H (1.6-2.3) mg/dL 03/30/19 Range/Units 11:58 BUN (7-17) mg/dL Glucose (74-99) mg/dL POC Glucose (mg/dL) 112 H (75-99) mg/dL Magnesium (1.6-2.3) mg/dL Microbiology - Last 24 Hours (Table) 03/29/19 10:45 Gram Stain - Preliminary Aspirate Body Fluid Culture - Preliminary Group D Enterococcus 03/23/19 21:07 Blood Culture - Final Blood No Growth after 144 hours 03/29/19 10:45 Fungal Culture - Preliminary Aspirate 03/29/19 10:45 Anaerobic Culture - Preliminary Aspirate Assessment and Plan (1) Perforated viscus Current Visit: Yes Status: Acute Code(s): R19.8 - OTH SYMPTOMS AND SIGNS INVOLVING THE DGSTV SYS AND ABDOMEN SNOMED Code(s): 719894051 (2) Diverticulitis Current Visit: No Status: Acute Code(s): K57.92 - DVTRCLI OF INTEST, PART UNSP, W/O PERF OR ABSCESS W/O BLEED SNOMED Code(s): 231164347 (3) Sepsis Current Visit: Yes Status: Acute Code(s): A41.9 - SEPSIS, UNSPECIFIED ORGANISM SNOMED Code(s): 04325948
[2019-03-30] MEDS: ONDANSETRON 4 MG/2 ML VIAL IVP PRN (14:48)
--- NOTE | 2019-03-30 20:16 | PN ---
PROGRESS NOTE DATE OF SERVICE: 03/30/2019. This 78 -year-old woman was admitted after intraabdominal abscess, underwent a CT- guided drainage. No chest pain. No palpitations. No fever. The most recent chest x- ray done today which was reviewed personally by me showed some atelectasis. No chest pain. No palpitations. No fever. PHYSICAL EXAM: Alert and oriented x3. Pulse is 95, blood pressure 170/75, respiration 18, temperature 98.4, pulse ox 98% on room air. HEENT: Conjunctivae normal. NECK: No JVD. CARDIOVASCULAR: S1, S2 muffled. RESPIRATION: Breath sounds diminished at the bases. Bilateral scattered rhonchi and crackles. ABDOMEN is soft, nontender. LEGS are no edema. No swelling. CENTRAL NERVOUS SYSTEM: No focal deficits. LAB STUDIES: Sodium 132, potassium 4.9, and glucose 119. ASSESSMENT: 1. Intraabdominal sepsis and pneumoperitoneum, status post successful aspirations with CT-guided drainage. 2. Sepsis, present on admission secondary to above. 3. History of recent low anterior resection with lysis of adhesions secondary to large bowel obstruction secondary to sigmoid colon stricture and secondary diverticulitis. 4. History of perforated diverticulitis with colostomy reversal. 5. Dehydration. 6. Gastroesophageal reflux disease. 7. Urinary tract infection with peripheral neuropathy. 8. Obesity with body mass index of 31.8. 9. Normocytic anemia. 10.Hypoalbuminemia. RECOMMENDATIONS AND DISCUSSION: Recommend to continue current medications, continue with monitoring, symptomatic treatment. Otherwise, at this time, I recommend continue with current medications. Continue with CT guided drainage. Continue the antibiotics. Continue to follow close with surgery. Further recommendations to follow. MMODL / IJN: [id number] /
[2019-03-30 21:36] LABS: Glucose,Whole Blood 113 mg/dL (75-99)
[2019-03-31] MEDS: MEROPENEM 1 GM in SODIUM CHLORIDE 0.9% 100 ML IVPB SCH ×4 (01:25→23:28)
[2019-03-31 02:49] LABS: Glucose,Whole Blood 107 mg/dL (75-99)
[2019-03-31 05:51] LABS: Glucose,Whole Blood 125 mg/dL (75-99)
[2019-03-31] MEDS: PANTOPRAZOLE 40 MG/10 ML VIAL IVP SCH ×2 (08:28→19:55)
[2019-03-31] MEDS: ANIDULAFUNGIN 100 MG in SODIUM CHLORIDE 0.9% 100 ML IVPB SCH (09:28)
[2019-03-31 09:50] LABS: Basophils % (A) 0 %; Eosinophils # (A) 0.4 k/uL (0-0.7); Eosinophils % (A) 4 %; HCT 36.3 % (34.0-46.0); HGB 11.8 gm/dL (11.4-16.0); Hypochromasia Slight; Lymphocytes # (A) 1.3 k/uL (1.0-4.8); Lymphocytes % (A) 13 %; MCH 28.7 pg (25.0-35.0); MCHC 32.4 g/dL (31.0-37.0); MCV 88.6 fL (80.0-100.0); Mean Platelet Volume 8.1; Monocytes # (A) 0.6 k/uL (0-1.0); Monocytes % (A) 6 %; Neutrophils # (A) 8.1 k/uL (1.3-7.7); Neutrophils % (A) 77 %; Platelet Count 338 k/uL (150-450); RBC 4.09 m/uL (3.80-5.40); RDW 14.1 % (11.5-15.5); WBC 10.6 k/uL (3.8-10.6)
[2019-03-31 10:10] LABS: African American GFR (CKD) >90 (>60 ml/min/1.73 sqM); Anion Gap 9 mmol/L; Blood Urea Nitrogen 21 mg/dL (7-17); Calcium 8.6 mg/dL (8.4-10.2); Carbon Dioxide 26 mmol/L (22-30); Chloride 103 mmol/L (98-107); Glucose 105 mg/dL (74-99); Magnesium 2.4 mg/dL (1.6-2.3); Phosphorus 3.3 mg/dL (2.5-4.5); Potassium 4.6 mmol/L (3.5-5.1); Sodium 138 mmol/L (137-145)
--- NOTE | 2019-03-31 10:50 | P.PN ---
<Elizabeth Benito A - Last Filed: 03/31/19 10:45> Subjective Progress Note Date: 03/31/19 CHIEF COMPLAINT: leukocytosis HISTORY OF PRESENT ILLNESS: Patient examined at the bedside. Patient states she had a rough night because she drank tea right before bed and was up multiple times throughout the night to urinate. Patient denies abdominal pain. Denies nausea or vomiting. She is passing flatus and having BMs. She remains on TPN. She is tolerating full liquid diet. WBC 10.6 Hemoglobin 11.8. She is afebrile. PHYSICAL EXAM: VITAL SIGNS: Reviewed. GENERAL: Well-developed in no acute distress. HEENT: No sclera icterus. Extraocular movements grossly intact. Moist buccal mucosa. Head is atraumatic, normocephalic. Hears conversational speech. No nasal drainage. NECK: Supple without lymphadenopathy. CHEST: Non-labored respirations and equal bilateral excursions. CARDIOVASCULAR: Regular rate with regular rhythm. Palpable 2+ radial pulses. ABDOMEN: Soft. Nondistended. Nontender. Midline incision noted with no drainage or signs of infection. Drain to left side of abdomen with small amount of serosanguineous drainage in tubing. MUSCULOSKELETAL: No clubbing, cyanosis or edema. NEUROLOGIC: No focal or lateralizing signs. Cranial nerves II through XII grossly intact. PSYCH: Appropriate affect. Alert and oriented to person, place and time. SKIN: Well perfused. Good skin turgor. ASSESSMENT: 1. Intraabdominal abscess with pneumoperitoneum 2. Sepsis, present on admission, secondary to above 3. 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 History of perforated diverticulitis with colostomy, since reversed 5. Dehydration secondary to poor oral intake 6. Hypokalemia 7. Hypophosphatemia PLAN: 1. Advance diet to regular diet 2. Wean off TPN today 3. Chloraprep to abdominal incision daily per Dr. Alexandre 4. Incentive spirometry 5. Activity as toleratd 6. Tentative discharge to ECF on Wednesday if patient remains stable 7. Await final antibiotic recommendations from infectious disease Nurse practitioner note has been reviewed by physician. Signing provider agrees with the documented findings, assessment, and plan of care. Objective - Vital Signs Vital signs: Vital Signs Temp 97.9 F 03/31/19 07:24 Pulse 97 03/31/19 07:24 Resp 16 03/31/19 07:24 BP 111/76 03/31/19 07:24 Pulse Ox 93 L 03/31/19 01:15 Intake & Output 03/30/19 03/31/19 03/31/19 18:59 06:59 18:59 Intake Total 2070 Balance 2070 Weight 86.5 kg 86.5 kg Intake: IV 100 Meropenem 1 gm In Sodium 100 Chloride 0.9% 100 ml @ 200 mls/hr IVPB Q8HR [facility] Rx#:[id number] Intake, IV Titration 1221 Amount Fat Emulsion 20% 250 ml 210 In Empty Bag 1 bag @ 21 mls/hr IV MoWeFr [facility] Rx#: [id number] Mvi, Adult No.4 with Vit 1011 K 10 ml Trace (Conc-1Ml/ Dose) 1 ml In Amino Acid 5%-D15w+Lytes*E* 1,000 ml @ 75 mls/hr IV .BY DURATION [facility] Rx#: [id number] Oral 750 Other: Voiding Method Toilet # Voids 1 - Labs CBC & Chem 7: 03/31/19 09:33 03/31/19 09:33 Labs: Abnormal Lab Results - Last 24 Hours (Table) 03/30/19 03/30/19 03/31/19 Range/Units 11:58 20:54 02:47 Neutrophils # (1.3-7.7) k/uL BUN (7-17) mg/dL Glucose (74-99) mg/dL POC Glucose (mg/dL) 112 H 113 H 107 H (75-99) mg/dL Magnesium (1.6-2.3) mg/dL 03/31/19 03/31/19 03/31/19 Range/Units 05:50 09:33 09:33 Neutrophils # 8.1 H (1.3-7.7) k/uL BUN 21 H (7-17) mg/dL Glucose 105 H (74-99) mg/dL POC Glucose (mg/dL) 125 H (75-99) mg/dL Magnesium 2.4 H (1.6-2.3) mg/dL Microbiology - Last 24 Hours (Table) 03/29/19 10:45 Gram Stain - Preliminary Aspirate Body Fluid Culture - Preliminary Group D Enterococcus Assessment and Plan (1) Perforated viscus Current Visit: Yes Status: Acute Code(s): R19.8 - OTH SYMPTOMS AND SIGNS INVOLVING THE DGSTV SYS AND ABDOMEN SNOMED Code(s): 106459485 (2) Sepsis Current Visit: Yes Status: Acute Code(s): A41.9 - SEPSIS, UNSPECIFIED ORGANISM SNOMED Code(s): 09517314 <Bettie,Karen N - Last Filed: 03/31/19 16:49> Subjective As above. Patient reported that she had a rough night and tachycardia as a result of running [id number] to the bathroom after drinking tea. Otherwise, no abdominal pain. She continues to pass flatus. White blood cell count is normal today for several days. She denies any abdominal pain. Minimal output from CT- guided drain. We'll advance diet. Likely discontinue TPN today. Microbiology cultures demonstrated enterococcus resistant to tetracycline, erythromycin and gentamicin. Await ID suggestions of adjustment of antibiotics. Likely discharge to rehab with drain and IV antibiotics April 03 as she has double lumen PICC line. Objective - Vital Signs Vital signs: Vital Signs Temp 98.0 F 03/31/19 15:29 Pulse 100 03/31/19 15:29 Resp 16 03/31/19 16:00 BP 108/69 03/31/19 15:29 Pulse Ox 96 03/31/19 15:29 Intake & Output 03/30/19 03/31/19 03/31/19 18:59 06:59 18:59 Intake Total 2070 Balance 2070 Weight 86.5 kg 86.5 kg Intake: IV 100 Meropenem 1 gm In Sodium 100 Chloride 0.9% 100 ml @ 200 mls/hr IVPB Q8HR [facility] Rx#:[id number] Intake, IV Titration 1221 Amount Fat Emulsion 20% 250 ml 210 In Empty Bag 1 bag @ 21 mls/hr IV MoWeFr [facility] Rx#: [id number] Mvi, Adult No.4 with Vit 1011 K 10 ml Trace (Conc-1Ml/ Dose) 1 ml In Amino Acid 5%-D15w+Lytes*E* 1,000 ml @ 75 mls/hr IV .BY DURATION [facility] Rx#: [id number] Oral 750 Other: Voiding Method Toilet # Voids 1 - Labs CBC & Chem 7: 03/31/19 09:33 03/31/19 09:33 Labs: Abnormal Lab Results - Last 24 Hours (Table) 03/30/19 03/31/19 03/31/19 Range/Units 20:54 02:47 05:50 Neutrophils # (1.3-7.7) k/uL BUN (7-17) mg/dL Glucose (74-99) mg/dL POC Glucose (mg/dL) 113 H 107 H 125 H (75-99) mg/dL Magnesium (1.6-2.3) mg/dL 03/31/19 03/31/19 03/31/19 Range/Units 09:33 09:33 11:56 Neutrophils # 8.1 H (1.3-7.7) k/uL BUN 21 H (7-17) mg/dL Glucose 105 H (74-99) mg/dL POC Glucose (mg/dL) 101 H (75-99) mg/dL Magnesium 2.4 H (1.6-2.3) mg/dL Microbiology - Last 24 Hours (Table) 03/29/19 10:45 Anaerobic Culture - Preliminary Aspirate 03/29/19 10:45 Gram Stain - Final Aspirate Body Fluid Culture - Final Enterococcus faecalis Alpha Hemolytic Streptococcus Assessment and Plan (1) Perforated viscus Current Visit: Yes Status: Acute Code(s): R19.8 - OTH SYMPTOMS AND SIGNS INVOLVING THE DGSTV SYS AND ABDOMEN SNOMED Code(s): 897972623 (2) Diverticulitis Current Visit: No Status: Acute Code(s): K57.92 - DVTRCLI OF INTEST, PART UNSP, W/O PERF OR ABSCESS W/O BLEED SNOMED Code(s): 947949686 (3) Sepsis Current Visit: Yes Status: Acute Code(s): A41.9 - SEPSIS, UNSPECIFIED ORGANISM SNOMED Code(s): 36910271
[2019-03-31 12:21] LABS: Glucose,Whole Blood 101 mg/dL (75-99)
[2019-03-31] MEDS: ACETAMINOPHEN TAB 325 MG TAB PO PRN ×2 (12:36→23:26)
[2019-03-31 17:51] LABS: Glucose,Whole Blood 79 mg/dL (75-99)
[2019-03-31] MEDS: BACLOFEN 10 MG TAB PO PRN (18:20)
[2019-03-31] MEDS: 1: MVI, ADULT NO.4 WITH VIT K 10 ML, TRACE (CONC-1ML/DOSE) 1 ML in AMINO ACID 5%-D15W+LY IV SCH ×3 (18:25)
--- NOTE | 2019-03-31 20:55 | PN ---
PROGRESS NOTE DATE OF SERVICE: 03/31/2019 This 78-year-old woman who was admitted with intraabdominal abscess had CT-guided drainage. The patient is improving significantly. No chest pain. No palpitations. No fever. On exam, alert and oriented x3. Pulse 100, blood pressure 108/69, respiration 16, temperature 98 degrees, pulse ox 96% on room air. HEENT: Conjunctivae normal. NECK: No jugular venous distention. CARDIOVASCULAR SYSTEM: S1, S2 muffled. RESPIRATORY SYSTEM: Breath sounds diminished at the bases. A few scattered rhonchi. ABDOMEN: Soft. Status post surgery. LEGS: No edema. No swelling. NERVOUS SYSTEM: No focal deficit. LABS: CBC within normal limits. Sodium 138, potassium 4.6, magnesium 2.4. ASSESSMENT: 1. Intraabdominal sepsis and pneumoperitoneum, status post successful aspiration with CT-guided drainage. 2. Sepsis, present on admission, secondary to above. 3. 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 4. History of perforated diverticulitis with colostomy reversal. 5. Dehydration. 6. Gastroesophageal reflux disease. 7. Urinary tract infection. 8. Peripheral neuropathy. 9. Obesity with body mass index of 31.8. 10.Normocytic anemia. 11.Hypoalbuminemia. RECOMMENDATIONS AND DISCUSSION: I recommend to continue current medications, continue with the monitoring, symptomatic treatment. Continue with antibiotics. Continue the rest of the medications. DVT prophylaxis. Incentive spirometry. Closely follow with multiple consultants and Dr. Alexandre. Further recommendations to follow. MMODL / IJN: [id number] /
[2019-03-31 23:34] LABS: Glucose,Whole Blood 89 mg/dL (75-99)
[2019-04-01 07:26] LABS: Glucose,Whole Blood 84 mg/dL (75-99)
[2019-04-01] MEDS: 1: MVI, ADULT NO.4 WITH VIT K 10 ML, TRACE (CONC-1ML/DOSE) 1 ML in AMINO ACID 5%-D15W+LY IV SCH ×3 (07:29)
[2019-04-01] MEDS: MEROPENEM 1 GM in SODIUM CHLORIDE 0.9% 100 ML IVPB SCH ×2 (07:51→16:06)
[2019-04-01] MEDS: PANTOPRAZOLE 40 MG/10 ML VIAL IVP SCH ×2 (07:51→20:02)
[2019-04-01] MEDS: ANIDULAFUNGIN 100 MG in SODIUM CHLORIDE 0.9% 100 ML IVPB SCH (07:52)
[2019-04-01] MEDS: BACLOFEN 10 MG TAB PO PRN ×2 (08:06→20:09)
--- NOTE | 2019-04-01 10:03 | P.PN ---
Subjective Progress Note Date: 04/01/19 CHIEF COMPLAINT: Pneumoperitoneum HISTORY OF PRESENT ILLNESS: The patient is a 78-year-old female readmitted after emergent laparotomy 2+ weeks ago for acute large bowel obstruction from diverticulitis. she is s/p CT guided drainage 03/29/19. She is ambulating. She is tolerating regular diet. She has been afebrile. No reports of abdominal pain. ROS: No reports of nausea and vomiting. No fevers or chills. No new chest pain. No productive sputum PHYSICAL EXAM: VITAL SIGNS: Reviewed CONSTITUTIONAL: Well developed and in no acute distress. EYES: Conjuctivae without sclera icterus. Extraocular movements grossly intact. HEAD, EARS, NOSE, THROAT: Moist buccal mucosa. Head is atraumatic, no rmocephalic. Hears conversational speech. No nasal drainage. NECK: Supple. No thyroidomegaly. RESPIRATORY: Non-labored respirations and equal bilateral excursions. CARDIOVASCULAR: Palpable 2+ radial pulses. Regular rate. Regular rhythm. ABDOMEN: No peritonitis. Soft. Nontender. Obese. Only scant drainage, less than 5-ml in CT drain. MUSCULOSKELETAL: No gross deformity of the lower extremities noted. No clubbing. No cyanosis. SKIN: Good skin turgor. Well perfused. NEUROLOGIC: Cranial nerves I through XII grossly intact. No focal or lateralizing signs. PSYCH: Appropriate affect. Alert and oriented to person, place and time. CLINCAL LABS: WBC normal ASSESSMENT: 1. History of diverticulitis with large bowel obstruction s/p resection 2. Pneumoperitoneum, improved PLAN: 1. Agreeable for transfer to rehab 2. Continue antibiotics 3. Recommend diverticulitis diet/colectomy diet 4. Will need repeat AXT/CT scan in 2 weeks, 04/12 prior to removal of CT guided drain and discontinuation of IV antibiotics 5. Overall, excellent recovery. Objective - Vital Signs Vital signs: Vital Signs Temp 98.1 F 04/01/19 07:00 Pulse 96 04/01/19 07:00 Resp 18 04/01/19 07:00 BP 109/74 04/01/19 07:00 Pulse Ox 94 L 04/01/19 07:00 Intake & Output 03/31/19 04/01/19 04/01/19 18:59 06:59 18:59 Intake Total 200 Balance 200 Weight 86.5 kg 87 kg Intake: Intake, IV Titration 100 Amount Meropenem 1 gm In Sodium 100 Chloride 0.9% 100 ml @ 200 mls/hr IVPB Q8HR [facility] Rx#:[id number] Oral 100 Other: # Voids 2 - Labs CBC & Chem 7: 03/31/19 09:33 03/31/19 09:33 Labs: Abnormal Lab Results - Last 24 Hours (Table) 03/31/19 03/31/19 Range/Units 09:33 11:56 BUN 21 H (7-17) mg/dL Glucose 105 H (74-99) mg/dL POC Glucose (mg/dL) 101 H (75-99) mg/dL Magnesium 2.4 H (1.6-2.3) mg/dL Microbiology - Last 24 Hours (Table) 03/29/19 10:45 Anaerobic Culture - Preliminary Aspirate 03/29/19 10:45 Gram Stain - Final Aspirate Body Fluid Culture - Final Enterococcus faecalis Alpha Hemolytic Streptococcus Assessment and Plan (1) Perforated viscus Current Visit: Yes Status: Acute Code(s): R19.8 - OTH SYMPTOMS AND SIGNS INVOLVING THE DGSTV SYS AND ABDOMEN SNOMED Code(s): 643082735 (2) Diverticulitis Current Visit: No Status: Acute Code(s): K57.92 - DVTRCLI OF INTEST, PART UNSP, W/O PERF OR ABSCESS W/O BLEED SNOMED Code(s): 217804535 (3) Sepsis Current Visit: Yes Status: Acute Code(s): A41.9 - SEPSIS, UNSPECIFIED ORGANISM SNOMED Code(s): 57738264 (4) Pneumoperitoneum Current Visit: Yes Status: Acute Code(s): K66.8 - OTHER SPECIFIED DISORDERS OF PERITONEUM SNOMED Code(s): 23585763
[2019-04-01 11:55] LABS: Glucose,Whole Blood 105 mg/dL (75-99)
[2019-04-01] MEDS: ACETAMINOPHEN TAB 325 MG TAB PO PRN (16:06)
--- NOTE | 2019-04-01 21:17 | PN ---
PROGRESS NOTE DATE OF SERVICE: 04/01/2019 This 78-year-old woman who was admitted with intraabdominal abscess and a CT- guided drainage, is being closely monitored. No chest pain. No palpitations. No fever. PHYSICAL EXAM: Alert and oriented times three. Pulse is 96, blood pressure 109/75, respiration 18, temperature 98.1, pulse ox 94% on room air. HEENT: Conjunctivae normal. NECK: No JVD. CARDIOVASCULAR: S1, S2 muffled. RESPIRATORY: Breath sounds diminished in the bases. A few scattered rhonchi and crackles. ABDOMEN is soft, nontender. LEGS: No edema. No swelling. CENTRAL NERVOUS SYSTEM: No focal deficits. LAB STUDIES: At this time shows glucose 105. CBC within normal limits. ASSESSMENT: 1. Intraabdominal sepsis with abscess with pneumoperitoneum status post successful aspiration with CT-guided drainage. 2. Sepsis, present on admission, secondary to above. 3. 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 4. History of perforated diverticulitis with colostomy reversal. 5. Dehydration. 6. Gastroesophageal reflux disease. 7. Gait dysfunction. 8. Urinary tract infection. 9. Peripheral neuropathy. 10.Obesity with body mass index 31.8. 11.Normocytic anemia. 12.Hypoalbuminemia. RECOMMENDATIONS AND DISCUSSION: Continue with current medications, continue symptomatic treatment. Otherwise, at this time, I recommend PT/OT evaluation, possible ECF rehab. Continue the rest of medications and closely follow with surgery and Infectious Disease. Further recommendations to follow. MMODL / IJN: [id number] / GARETH
[2019-04-02] MEDS: MEROPENEM 1 GM in SODIUM CHLORIDE 0.9% 100 ML IVPB SCH ×4 (00:15→23:14)
[2019-04-02] MEDS: ACETAMINOPHEN TAB 325 MG TAB PO PRN (07:53)
[2019-04-02] MEDS: PANTOPRAZOLE 40 MG/10 ML VIAL IVP SCH ×2 (07:53→22:04)
[2019-04-02] MEDS: ANIDULAFUNGIN 100 MG in SODIUM CHLORIDE 0.9% 100 ML IVPB SCH (07:54)
--- NOTE | 2019-04-02 10:45 | P.PN ---
Subjective Progress Note Date: 04/02/19 CHIEF COMPLAINT: Pneumoperitoneum HISTORY OF PRESENT ILLNESS: The patient is a 78-year-old female readmitted after emergent laparotomy 3+ weeks ago for acute large bowel obstruction from diverticulitis. she is s/p CT guided drainage 03/29/19. She is tolerating regular diet. No complaints. She is ambulating frequently. She is using her incentive spirometer. ROS: No reports of nausea and vomiting. No fevers or chills. No new chest pain. No productive sputum PHYSICAL EXAM: VITAL SIGNS: Reviewed CONSTITUTIONAL: Well developed and in no acute distress. EYES: Conjuctivae without sclera icterus. Extraocular movements grossly intact. HEAD, EARS, NOSE, THROAT: Moist buccal mucosa. Head is atraumatic, normocephalic. Hears conversational speech. No nasal drainage. NECK: Supple. No thyroidomegaly. RESPIRATORY: Non-labored respirations and equal bilateral excursions. CARDIOVASCULAR: Palpable 2+ radial pulses. Regular rate. Regular rhythm. ABDOMEN: No peritonitis. Soft. Nontender. Obese. Only scant drainage, less than 5-ml in CT drain. MUSCULOSKELETAL: No gross deformity of the lower extremities noted. No clubbing. No cyanosis. SKIN: Good skin turgor. Well perfused. NEUROLOGIC: Cranial nerves I through XII grossly intact. No focal or lateralizing signs. PSYCH: Appropriate affect. Alert and oriented to person, place and time. CLINCAL LABS: WBC normal ASSESSMENT: 1. History of diverticulitis with large bowel obstruction s/p resection 2. Pneumoperitoneum, improved PLAN: 1. Plan for discharge tomorrow with drain and antibiotics. 2. Agreeable for transfer to rehab 3. Continue antibiotics 4. Will need repeat AXT/CT scan in 2 weeks, 04/12 prior to removal of CT guided drain and discontinuation of IV antibiotics Objective - Vital Signs Vital signs: Vital Signs Temp 98.3 F 04/02/19 07:00 Pulse 97 04/02/19 07:00 Resp 16 04/02/19 07:00 BP 117/71 04/02/19 07:00 Pulse Ox 94 L 04/02/19 07:00 Intake & Output 04/01/19 04/02/19 04/02/19 18:59 06:59 18:59 Intake Total 100 Balance 100 Weight 86.8 kg Intake: Oral 100 Other: # Voids 1 - Labs CBC & Chem 7: 03/31/19 09:33 03/31/19 09:33 Labs: Abnormal Lab Results - Last 24 Hours (Table) 04/01/19 Range/Units 11:42 POC Glucose (mg/dL) 105 H (75-99) mg/dL Microbiology - Last 24 Hours (Table) 03/29/19 10:45 Anaerobic Culture - Preliminary Aspirate Assessment and Plan (1) Perforated viscus Current Visit: Yes Status: Acute Code(s): R19.8 - OTH SYMPTOMS AND SIGNS INVOLVING THE DGSTV SYS AND ABDOMEN SNOMED Code(s): 218080686 (2) Pneumoperitoneum Current Visit: Yes Status: Acute Code(s): K66.8 - OTHER SPECIFIED DISORDERS OF PERITONEUM SNOMED Code(s): 35587911 (3) Sepsis Current Visit: Yes Status: Acute Code(s): A41.9 - SEPSIS, UNSPECIFIED ORGANISM SNOMED Code(s): 58412879 (4) Diverticulitis large intestine Current Visit: No Status: Acute Code(s): K57.32 - DVTRCLI OF LG INT W/O PERFORATION OR ABSCESS W/O BLEEDING SNOMED Code(s): 5732412
[2019-04-02] MEDS: BACLOFEN 10 MG TAB PO PRN (18:38)
--- NOTE | 2019-04-02 20:47 | PN ---
PROGRESS NOTE DATE OF SERVICE: 04/02/2019. This 78-year-old woman was admitted after intraabdominal abscess, had a CT-guided drainage. No chest pain. No palpitations. No fever. Patient complains of weakness. ECF rehab is being planned at this time. No chest pain. No palpitation. EXAM: Alert and oriented x3. Pulse 98, blood pressure 117/76, respirations 16, temperature is 98.2, pulse ox 98% on room air. HEENT: Conjunctivae normal. NECK: No jugular venous distention. CARDIOVASCULAR: S1, S2 muffled. RESPIRATORY: Breath sounds diminished in the bases. A few scattered rhonchi and crackles. ABDOMEN: Soft, nontender. LEGS: No edema. NERVOUS SYSTEM: No focal deficits. LABS: At this time shows glucose is 105. Other labs CBC within normal. CMP noted. ASSESSMENT: 1. Intraabdominal abscess with sepsis with pneumoperitoneum status post successful aspiration of the CT-guided drainage with sepsis, present on admission secondary to above. 2. 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 3. History of perforated diverticulitis with colostomy reversal. 4. Dehydration. 5. Gastroesophageal reflux disease. 6. Gait dysfunction. 7. Urinary tract infection. 8. Peripheral neuropathy. 9. Obesity with body mass index of 31.6. 10.Normocytic anemia. 11.Hypoalbuminemia. RECOMMENDATIONS AND DISCUSSION: I recommend to continue current management, monitoring and symptomatic treatments. At this time I recommend continue with antibiotics. Closely follow with Surgery. Possible ECF rehab. Further recommendations to follow. MMODL / IJN: [id number] /
[2019-04-03 01:34] VITALS: RESP 16
[2019-04-03] MEDS: ACETAMINOPHEN TAB 325 MG TAB PO PRN ×2 (07:28→16:12)
[2019-04-03 08:00] VITALS: BP 119/79; PULSE 52; TEMP 98.2
[2019-04-03] MEDS: MEROPENEM 1 GM in SODIUM CHLORIDE 0.9% 100 ML IVPB SCH ×2 (08:48→15:11)
[2019-04-03] MEDS: PANTOPRAZOLE 40 MG/10 ML VIAL IVP SCH (08:49)
[2019-04-03] MEDS: ANIDULAFUNGIN 100 MG in SODIUM CHLORIDE 0.9% 100 ML IVPB SCH (09:45)
--- NOTE | 2019-04-03 14:02 | P.DS ---
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 Alexandre on 03/09/19. Patient admitted secondary to leukocytosis, dehydration, intra-abdominal abscess and perforation. Patient was placed on IV antibiotics and TPN. She was evaluated by infectious disease during hospitalization. Patient improved quickly and clinically looked well. She denied abdominal pain during hospitalization. She had an abdominal drain placed for evacuation of large amount of air by interventional radiology. Patient was slowly weaned off TPN and placed on oral liquids, which was advanced as tolerated. She has been tolerating diet and having bowel movements. WBC has been within normal limits. She has been afebrile. Patient is stable for discharge to ECF today with drain and IV antibiotics. She is to have repeat CT in 2 weeks on 04/12 prior to removal of CT guided drain or discontinuation of IV antibiotics. Please see EMR for further hospital course details. Discharge Diagnosis 1. Intraabdominal abscess with pneumoperitoneum 2. Sepsis, present on admission, secondary to above 3. 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 History of perforated diverticulitis with colostomy, since reversed 5. Dehydration secondary to poor oral intake 6. Hypokalemia 7. Hypophosphatemia Nurse practitioner note has been reviewed by physician. Signing provider agrees with the documented findings, assessment, and plan of care. Plan - Discharge Summary Discharge Rx Participant: No New Discharge Prescriptions: New Baclofen [Lioresal] 5 mg PO TID PRN tab PRN Reason: Muscle Spasm Meropenem [Merrem] 1 gm IVPB Q8H #63 vial Continue Gabapentin [Neurontin] 300 mg PO BID Acetaminophen [Tylenol] 325 mg PO Q4H #30 tab Omeprazole 40 mg PO DAILY Nystatin 500,000 unit PO Q6HR Multivitamins, Thera [Multivitamin (formulary)] 2 tab PO DAILY Calcium Carbonate [Calcium] 1,200 mg PO DAILY Discontinued Naproxen 500 mg PO BID Ibuprofen [Motrin] 600 mg PO Q8HR PRN #30 tab PRN Reason: Pain Discharge Medication List Gabapentin [Neurontin] 300 mg PO BID 05/31/14 [History] Acetaminophen [Tylenol] 325 mg PO Q4H #30 tab 03/13/19 [Rx] Calcium Carbonate [Calcium] 1,200 mg PO DAILY 03/23/19 [History] Multivitamins, Thera [Multivitamin (formulary)] 2 tab PO DAILY 03/23/19 [History] Nystatin 500,000 unit PO Q6HR 03/23/19 [History] Omeprazole 40 mg PO DAILY 03/23/19 [History] Baclofen [Lioresal] 5 mg PO TID PRN tab 04/03/19 [Rx] Meropenem [Merrem] 1 gm IVPB Q8H #63 vial 04/03/19 [Rx] Follow up Appointment(s)/Referral(s): Nini Alexandre MD [STAFF PHYSICIAN] - 1 Week Garcia Marvin MD [Medical Doctor] - 1 Week Activity/Diet/Wound Care/Special Instructions: walking boot PRN WBAT ICE, elevation Will need repeat AXT/CT scan in 2 weeks, 04/[address] of CT guided drain and discontinuation of IV antibiotics Activity as tolerated Tylenol as needed for pain Regular diet No lifting greater than 4 pounds Discharge Disposition: TRANSFER TO SNF/ECF <Nini Alexandre - Last Filed: 04/03/19 21:21> Providers Date of admission: 03/23/19 20:25 Attending physician: Nini Alexandre Consults: 03/23/19 20:35 Consult Physician Routine Consulting Provider: Sandro Jiménez Consult Reason/Comments: Medical management Do you want consulting provider notified?: Yes 03/23/19 20:36 Consult Physician Routine Consulting Provider: Salvador Law Consult Reason/Comments: Antibiotic management sepsis Do you want consulting provider notified?: Yes, Notify in am 03/26/19 12:18 Consult Physician Routine Consulting Provider: Joaquín Ceballos Consult Reason/Comments: Right Foot Pain Do you want consulting provider notified?: Already Contacted Primary care physician: Stated None - Discharge Diagnosis(es) (1) Perforated viscus Status: Acute (2) Pneumoperitoneum Status: Acute (3) Sepsis Status: Acute (4) Diverticulitis large intestine Status: Acute
[2019-04-03 14:29] VITALS: BMI 31.9
[2019-04-03] MEDS ORDERED: PANTOPRAZOLE 40 MG TABLET PO SCH (17:30)
--- NOTE | 2019-04-03 23:43 | P.PN ---
Subjective Progress Note Date: 04/03/19 This is a 78-year-old female patient recently hospitalized March 08 through the and underwent an extensive bowel surgery secondary to a large bowel obstruction, history of perforated diverticulitis and colostomy reversal, sigmoid stricture. Patient was discharged home in stable condition and patient states that she was doing well prior to her discharge once she got home she felt that she did not have any energy and had generalized malaise and was not eating or drinking very much. Her daughter contacted Dr. Mcgowan and outpatient IV fluids were arranged at the infusion center at [facility]. She was then sent to emergency center for evaluation for weakness, lightheadedness diarrhea 2 times per day and was found to have a white count of 23.8, potassium 2.8, BUN was 24 and creatinine 0.8, magnesium 1.9. Chest x-ray showed extensive pneumoperitoneum. CAT scan of the abdomen and pelvis showed extensive pneumoperitoneum extending up to the retroperitoneum and into the mediastinum. Large thick-walled fluid collection throughout the left side of the abdomen, possibly arising from or at least directly adjacent to the thick walled distal duodenal wall, though, there are few small foci of air adjacent to the left lower quadrant colonic anastomosis do seem to connect to the collection. Rupture is likely at the superior margin of the collection is likely the source of most of the air. Patient was then transferred to [facility]. She is currently nothing by mouth except ice chips, PICC line has been ordered. She is currently on IV antibiotics the form of Levaquin and Flagyl. Patient does have ALLERGY to penicillin which causes swelling of the to ngue. Patient denies any true abdominal pain. She is known to have tenderness in the left upper quadrant. She is passing gas and did have a bowel movement yesterday that was soft and formed. Patient has been using incentive spirometry while at home and continued here in the hospital. It appears she had a straight cath placed at [facility] but no Decker catheter in place. 04/03/2019 the patient has had improvement. Abdominal pain is improved. She's had the CT-guided drainage of her abdominal abscess. She is having improvement. There are plans for her to transition to extended care facility. However she is currently on ertapenem and Eraxis which will not be covered at the extended care facility. Cultures are reviewed. Objective - Vital Signs Vital signs: Vital Signs Temp 98.2 F 04/03/19 07:10 Pulse 52 L 04/03/19 07:10 Resp 16 04/03/19 07:10 BP 119/79 04/03/19 07:10 Pulse Ox 92 L 04/03/19 07:10 Intake & Output 04/03/19 04/03/19 04/04/19 06:59 18:59 06:59 Weight 84.5 kg 84.5 kg Other: Voiding Method Toilet # Voids 2 1 # Bowel Movements 1 - Exam Gen: This is a obese 78-year-old female. She is resting in bed and appears to be comfortable. Patient did become tearful during evaluation. HEENT: Head is atraumatic, normocephalic. Pupils equal, round. Sclerae is anicteric. NECK: Supple. No JVD. No lymphadenopathy. No thyromegaly. LUNGS: Clear to auscultation. No wheezes or rhonchi. No intercostal retractions. HEART: Regular rate and rhythm. No murmur. ABDOMEN: Soft. Bowel sounds are present. No masses. Left upper quadrant tenderness. Midline incision distal areas slight redness at the wound site. No dehiscence. No significant drainage. No foul order.percutaneous drain in place EXTREMITIES: No pedal edema. No calf tenderness. Dorsalis pedis +1 bilaterally. NEUROLOGICAL: Patient is awake, alert and oriented x3. - Labs CBC & Chem 7: 03/31/19 09:33 03/31/19 09:33 Labs: Laboratory Results WBC 10.6 k/uL (3.8-10.6) 03/31/19 09:33 RBC 4.09 m/uL (3.80-5.40) 03/31/19 09:33 Hgb 11.8 gm/dL (11.4-16.0) 03/31/19 09:33 Hct 36.3 % (34.0-46.0) 03/31/19 09:33 MCV 88.6 fL (80.0-100.0) 03/31/19 09:33 MCH 28.7 pg (25.0-35.0) 03/31/19 09:33 MCHC 32.4 g/dL (31.0-37.0) 03/31/19 09:33 RDW 14.1 % (11.5-15.5) 03/31/19 09:33 Plt Count 338 k/uL (150-450) 03/31/19 09:33 Neutrophils % 77 % 03/31/19 09:33 Lymphocytes % 13 % 03/31/19 09:33 Monocytes % 6 % 03/31/19 09:33 Eosinophils % 4 % 03/31/19 09:33 Basophils % 0 % 03/31/19 09:33 Neutrophils # 8.1 k/uL (1.3-7.7) H 03/31/19 09:33 Lymphocytes # 1.3 k/uL (1.0-4.8) 03/31/19 09:33 Monocytes # 0.6 k/uL (0-1.0) 03/31/19 09:33 Eosinophils # 0.4 k/uL (0-0.7) 03/31/19 09:33 Basophils # 0.0 k/uL (0-0.2) 03/31/19 09:33 Hypochromasia Slight 03/31/19 09:33 PT 10.8 sec (9.0-12.0) 03/29/19 06:33 INR 1.0 (<1.2) 03/29/19 06:33 Sodium 138 mmol/L (137-145) 03/31/19 09:33 Potassium 4.6 mmol/L (3.5-5.1) 03/31/19 09:33 Chloride 103 mmol/L (98-107) 03/31/19 09:33 Carbon Dioxide 26 mmol/L (22-30) 03/31/19 09:33 Anion Gap 9 mmol/L 03/31/19 09:33 BUN 21 mg/dL (7-17) H 03/31/19 09:33 Creatinine 0.53 mg/dL (0.52-1.04) 03/31/19 09:33 Est GFR (CKD-EPI)AfAm >90 (>60 ml/min/1.73 sqM) 03/31/19 09:33 Est GFR (CKD-EPI)NonAf >90 (>60 ml/min/1.73 sqM) 03/31/19 09:33 Glucose 105 mg/dL (74-99) H 03/31/19 09:33 POC Glucose (mg/dL) 105 mg/dL (75-99) H 04/01/19 11:42 POC Glu Transitional Studies Instructor ID Terese Merino 04/01/19 11:42 Calcium 8.6 mg/dL (8.4-10.2) 03/31/19 09:33 Ionized Calcium Cyn 4.6 mg/dL (4.5-5.3) 03/24/19 15:14 Phosphorus 3.3 mg/dL (2.5-4.5) 03/31/19 09:33 Magnesium 2.4 mg/dL (1.6-2.3) H 03/31/19 09:33 Total Bilirubin 0.4 mg/dL (0.2-1.3) 03/28/19 08:28 AST 20 U/L (14-36) 03/28/19 08:28 ALT 15 U/L (9-52) 03/28/19 08:28 Alkaline Phosphatase 60 U/L (38-126) 03/28/19 08:28 Total Protein 5.6 g/dL (6.3-8.2) L 03/28/19 08:28 Albumin 2.9 g/dL (3.5-5.0) L 03/28/19 08:28 Triglycerides 100 mg/dL (<150) 03/24/19 15:14 Amylase <30 U/L (30-110) L 03/23/19 21:07 Lipase 91 U/L (23-300) 03/23/19 21:07 Procalcitonin 0.10 ng/mL (0.02-0.09) H 03/24/19 15:14 Urine Color Light Yellow 03/24/19 06:20 Urine Appearance Clear (Clear) 03/24/19 06:20 Urine pH 6.0 (5.0-8.0) 03/24/19 06:20 Ur Specific Bureau 1.014 (1.001-1.035) 03/24/19 06:20 Urine Protein Negative (Negative) 03/24/19 06:20 Urine Glucose (UA) Negative (Negative) 03/24/19 06:20 Urine Ketones 1+ (Negative) H 03/24/19 06:20 Urine Blood Negative (Negative) 03/24/19 06:20 Urine Nitrite Negative (Negative) 03/24/19 06:20 Urine Bilirubin Negative (Negative) 03/24/19 06:20 Urine Urobilinogen <2.0 mg/dL (<2.0) 03/24/19 06:20 Ur Leukocyte Esterase Small (Negative) H 03/24/19 06:20 Urine RBC 1 /hpf (0-5) 03/24/19 06:20 Urine WBC 3 /hpf (0-5) 03/24/19 06:20 Ur Squamous Epith Cells <1 /hpf (0-4) 03/24/19 06:20 Urine Mucus Rare /hpf (None) H 03/24/19 06:20 Microbiology 03/29/19 10:45 Aspirate Anaerobic Culture - Final 03/29/19 10:45 Aspirate Gram Stain - Final 03/29/19 10:45 Aspirate Body Fluid Culture - Final Enterococcus faecalis Alpha Hemolytic Streptococcus 03/23/19 21:07 Blood Blood Culture - Final No Growth after 144 hours 03/29/19 10:45 Aspirate Fungal Culture - Preliminary Assessment and Plan (1) Diverticulitis large intestine Status: Acute Code(s): K57.32 - DVTRCLI OF LG INT W/O PERFORATION OR ABSCESS W/O BLEEDING SNOMED Code(s): 9201362 (2) Intra-abdominal abscess post-procedure Narrative/Plan: his 78-year-old woman has evidence of the significant difficulty with the perforated diverticulum and the surgical intervention. Now has evidence of the significant changes in the pelvis with free air. Current plan is of carbapenem therapy which should be well tolerated with her penicillin ALLERGY as well as addition of Eraxis since there is high likelihood of a fungal component also to this extensive infection problem. Currently awaiting a PICC line to be placed and within need a course of antibiotic therapy. It appears that she is also on bowel rest and TPN this could be utilized. Her pain control seems to be adequate at this point in time. 04/03/2019 the patient has had improvement of Abdominal pain is improved. PICC line has Antibiotic therapy is altered to 1 g every 8 hours which can be Utilized at the extended care facility for the minimum of the next 2 weeks. When he follow up with her surgeon and can follow-up in the office with likely an outpatient computed tomography scan to ensure there is further improvement. Orders are given to the extended care facility. Status: Acute Code(s): T81.49XA - INFECTION FOLLOWING A PROCEDURE, OTHER SURGICAL SITE, INIT SNOMED Code(s): 3245871
--- NOTE | 2019-04-03 23:58 | P.PN ---
Progress Note - Text Progress Note Date: 04/03/19 Presenting complaint: Abdominal pain Interval history: This is a very pleasant 78-year-old patient of Dr. Alivia Arce. Patient was here in the hospital on March 09 and was discharged on March 13. Patient had a prior perforated diverticular disease but the resulting colostomy that was reversed. Patient is having abdominal symptoms and patient was taken to the or on March [address] Mcgowan and lysis of adhesions was carried out for large bowel obstruction. Since patient is being home patient having increasing abdominal discomfort. Not feeling well. Decreased appetite. Patient had some loose bowels here and there. No obvious nausea vomiting. Patient had a fever at home of 102.5, 3 days ago. As a part of the incision in the middle that is had some drainage. Patient does feel tired and rundown. Also having abdominal pain. Repeat computed tomography scan did show possible intra-abdominal abscess. A drainage tube was placed. Patient continue with antibiotics. Today-sitting upon a chair. Had a bowel movement. Advance to regular diet. No nausea vomiting. No fever. Overall feeling better. Using a walker. Review of systems: Was done for constitutional, cardiovascular, GI, pulmonary. relevant finding as above Current medications reviewed that included: IV meropenem Physical examination: VITAL SIGNS: 98.2, 52, 16, 100 lysis 79, 92% room air GENERAL: Sitting up in a chair, having lunch, comfortable. EYES: Pupils equal. Conjunctiva normal. HEENT: External appearance of nose and ears normal, oral cavity grossly normal. NECK: JVD not raised; masses not palpable. HEART: First and second heart sounds are normal; no edema. LUNGS: Respiratory rate normal; clear to auscultation. ABDOMEN: Soft, slight distended, incision is healing well ; liver spleen not palpable, no masses palpable. PSYCH: Alert and oriented x3; mood and affect anxious. Investigations, reviewed in the clinical context: Accu-Cheks are noted White count was 10.6 on March 31 and creatinine was 0.53 Assessment: -Intra-abdominal abscess following lysis of adhesions and sigmoid stricture surgical site, with clinical response to antibiotics and drain -GERD -Idiopathic peripheral neuropathy -Obesity BMI 31.8 -Normocytic anemia, likely blood loss from recent surgery as expected -Hypoalbuminemia has an acute phase reactant Plan: Per surgery patient be discharged to inpatient rehab. Antibiotics are being coordinated per Dr. Law. Patient will need a follow-up computed tomography scan and follow-up with both with surgery and ID. Clinically this point patient looking better. Tolerating her diet
== END 2019-04-03 16:43 | DRG 872 ==
LOC: 4SSUR 20:25
PROVIDERS: ADMIT Surgery Plastic and Reconstructive Surgery; ATTEND Surgery Plastic and Reconstructive Surgery
PROC: 3E0436Z Introduction of Nutritional Substance into Central Vein, Percutaneous Approach (ICD-10-PCS; 2019-03-24)
PROC: 02HV33Z Insertion of Infusion Device into Superior Vena Cava, Percutaneous Approach (ICD-10-PCS; principal; 2019-03-24 14:00)
DX: A41.9 Sepsis, unspecified organism (principal); J98.11 Atelectasis; K57.20 Diverticulitis of large intestine with perforation and abscess without bleeding; N39.0 Urinary tract infection, site not specified; E86.0 Dehydration; K66.8 Other specified disorders of peritoneum; E88.09 Other disorders of plasma-protein metabolism, not elsewhere classified; E83.39 Other disorders of phosphorus metabolism; E87.6 Hypokalemia; E66.9 Obesity, unspecified; G60.9 Hereditary and idiopathic neuropathy, unspecified; K21.9 Gastro-esophageal reflux disease without esophagitis; M77.30 Calcaneal spur, unspecified foot; M25.551 Pain in right hip; M79.671 Pain in right foot; R26.9 Unspecified abnormalities of gait and mobility; Z68.31 Body mass index [BMI] 31.0-31.9, adult; Z79.899 Other long term (current) drug therapy; Z88.0 Allergy status to penicillin; Z90.49 Acquired absence of other specified parts of digestive tract; Z90.710 Acquired absence of both cervix and uterus; Z96.651 Presence of right artificial knee joint; Z98.51 Tubal ligation status; Z16.29 Resistance to other single specified antibiotic; Z80.49 Family history of malignant neoplasm of other genital organs; Z80.3 Family history of malignant neoplasm of breast
CPT/HCPCS: 36573; 71045; 74019; 74177; 75989; 77012; 80048; 80053; 81001; 82040; 82150; 82330; 83690; 83735; 84100; 84145; 84478; 85025; 85049; 85610; 87040; 87070; 87075; 87077; 87102; 87186; 87205